=== PATIENT | female | born 1930 | race Hispanic/Latino ===

== ENCOUNTER 2016-11-27 11:51 | Emergency (ER) | payer MEDICARE, BC ==
[2016-11-27 11:55] VITALS: BMI 33.6
--- NOTE | 2016-11-27 12:22 | ED PDOC ---
Arrival/HPI - General Chief Complaint: Trauma Time Seen by Provider: 11/27/16 11:58 - History of Present Illness Narrative History of Present Illness (Text): 11/27/16 12:17 86yo female in the ER after a fall which happened this morning. Patient states she sitting up in bed, stood up, felt lightheaded and fell onto her L. side. States she did not have LOC and remembers the whole event. States she did not have chest pain, palpitations, n/v, VILLEGAS. States she has thoracic back pain, R. knee pain, L min-rib pain. States she no longer feels lightheaded. No other complaints. Past Medical History - Provider Review Nursing Documentation Reviewed: Yes - Infectious Disease Hx of Infectious Diseases: None - Tetanus Immunization Tetanus Immunization: Unknown - Cardiac Hx Hypertension: Yes Hx Pacemaker: Yes - Pulmonary Hx Chronic Obstructive Pulmonary Disease (COPD): Yes - Neurological HX Cerebrovascular Accident: Yes (left side weakness) - HEENT Hx Cataracts: Yes (bilateral sx) - Endocrine/Metabolic Hx Diabetes Mellitus Type 2: Yes - Hematological/Oncological Hx Cancer: Yes (left breast lumpectomy had radiation 2000) Other/Comment: l breast lumpectomy 2000 - Integumentary Other/Comment: redness under breasts, redness to left buttock - Musculoskeletal/Rheumatological Hx Falls: Yes Hx Unsteady Gait: Yes (uses a cane) - Gastrointestinal Hx Gastrointestinal Disorders: Yes (gi bleed) - Genitourinary/Gynecological Hx Incontinence: Yes (urine and stool) - Psychiatric Hx Depression: No Hx Emotional Abuse: No Hx Physical Abuse: No Hx Substance Use: No - Surgical History Hx Cardiac Catheterization: Yes Hx Open Heart Surgery: Yes Hx Orthopedic Surgery: Yes Other/Comment: ptca, 5 stents, cabg 3 stents, carpal tunnel sx - Anesthesia Hx Anesthesia Reactions: No Hx Malignant Hyperthermia: No - Suicidal Assessment Feels Threatened In Home Enviroment: No Family/Social History Family/Social History: Unknown Family HX Smoking Status: Never Smoked Hx Alcohol Use: No Hx Substance Use: No Hx Substance Use Treatment: No Allergies/Home Meds Allergies/Adverse Reactions: Allergies FISH Allergy (Verified 11/27/16 12:00) RASH Home Medications: Home Meds Medication Instructions Recorded Confirmed Apixaban [Eliquis] 5 mg PO DAILY 11/27/16 11/27/16 Aspirin [Adult Low Dose Aspirin EC] 81 mg PO DAILY 11/27/16 11/27/16 Cetirizine HCl [Children's Allergy 10 mg PO DAILY 11/27/16 11/27/16 Relief] Furosemide [Lasix] 40 mg PO DAILY 11/27/16 11/27/16 Losartan Potassium 100 mg PO DAILY 11/27/16 11/27/16 Metformin HCl [Metformin HCl ER] 500 mg PO DAILY 11/27/16 11/27/16 Potassium Chloride [K-Dur 20] 20 meq PO DAILY 11/27/16 11/27/16 Simvastatin 40 mg PO DAILY 11/27/16 11/27/16 amLODIPine [Norvasc] 5 mg PO DAILY 11/27/16 11/27/16 Physical Exam - Physical Exam Narrative Physical Exam (Text): 11/27/16 12:23 - Review of Systems Constitutional: Normal. absent: Fatigue, Weight Change, Fevers Eyes: Normal ENT: denies sore throat, denies tristhmus Respiratory: Normal. absent: SOB, Cough, Sputum Cardiovascular: absent: Chest Pain, Palpitations, Syncope Gastrointestinal: Normal. absent: Abdominal Pain, Diarrhea, Nausea, Vomiting Genitourinary: Normal. absent: Dysuria, Frequency, Hematuria, vaginal bleeding Musculoskeletal: Arthralgias, Back Pain. absent: Neck Pain Skin: no rashes, no erythema Neurological: absent: Focal Weakness Endocrine: Normal Hemo/Lymphatic: Normal Psychiatric: No suicidal or homicidal ideations Physical exam Patient appears age appropriate in no distress, speaking full sentences without difficulty Head atraumatic. No nasal bone deformity or tenderness, no facial or jaw pain/ swelling. No neck midline tenderness, and lumbar spine with no midline tenderness. Pt moving b/l upper and lower extremities without difficulty, 5/5 strength, with full active and passive ROM. Distal neurovasc fully intact. Abd soft/nt/ng, no hematomas, no peritoneal signs. Neg. pelvic rock. L. ribs with ant. and post tenderness to palpation L. mid-thoracic spine with tenderness to palpation R. knee with small contusion, full active and passive ROM - Systems Exam Head: Present: Atraumatic, Normocephalic Pupils: Present: PERRL Extroacular Muscles: Present: EOMI Conjunctiva: Present: Normal Mouth: Present: Moist Mucous Membranes Neck: Present: Normal Range of Motion. No: MIDLINE TENDERNESS, Paraspinal Tenderness Respiratory/Chest: Present: Clear to Auscultation, Good Air Exchange. No: Respiratory Distress, Accessory Muscle Use, Tachypneic Cardiovascular: Present: Regular Rate and Rhythm, Normal S1, S2, Peripheal Pulses Present. No: Murmurs Abdomen: Present: Normal Bowel Sounds. No: Tenderness, Distention, Peritoneal Signs, Rebound, Guarding Neurological: Present: GCS=15, Speech Normal, cranial nerves II through XII fully intact with no cerebellar abnormality, neurosensory fully intact. No focal neurological deficits. Skin: Present: Warm, Dry, Normal Color. No: Rashes Lymphatic: Present: OX3, NI, NC Psychiatric: Present: Alert, Oriented x 3, Normal Insight, Normal Concentration Vital Signs Reviewed: Yes Vital Signs Temp Pulse Resp BP Pulse Ox 11/27/16 15:11 98 F 72 19 150/86 99 11/27/16 12:00 98.2 F 71 16 170/89 H 96 Temperature: Afebrile Blood Pressure: Hypertensive Pulse: Regular Respiratory Rate: Normal Appearance: Positive for: Well-Appearing Pain Distress: None Mental Status: Positive for: Alert and Oriented X 3 Medical Decision Making ED Course and Treatment: 11/27/16 12:29 86yo female after a fall. states she was lightheaded after standing up, then fell, no LOC. L. ribs and mid-thoracic spine with tenderness to palpation No focal neurological deficits on examination Differential includes but not limited to: fracture, dehydration, UTI previous records reviewed, pt was admitted 11/18 for pseudomonas UTI labs, imaging, pain meds ordered EKG shows paced rhythm, 68bpm. Interpreted by me 11/27/16 13:40 Pelvis and Bilateral Hips X-ray: Creator : Yosi Kerns MD IMPRESSION: No acute fracture 11/27/16 13:45 Right Knee X-ray: Creator : Yosi Kerns MD IMPRESSION: Severe degenerative changes are seen especially in the patellofemoral joint. There is also joint space narrowing and bony sclerosis in the medial compartment. Meniscal calcification is also seen 11/27/16 13:[address]: Creator : Yosi Kerns MD IMPRESSION: No acute findings 11/27/16 13:[address]: Creator : Yosi Kerns MD IMPRESSION: No acute findings. 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 No acute compression fractures 11/27/16 15:03 pt in no pain or distress at this time states she ambulates with a walker at home ambulated with assistance in the ED states she feels comfortable being dc'd home Pt states she understands to return to the ER right away for new or worsening symptoms or for inability to f/u with PMD or specialist as instructed. Patient states that she fully agrees with and understands discharge instructions. States that she agrees with the plan and disposition. Verbalized and repeated discharge instructions and plan. I have given the patient opportunity to ask any additional questions. 11/27/16 16:28 spoke with Sabine, pt's next of kin. She states pt is now resting. Informed that UA was sent for culture and that our staff will call with positive results. also informed of L. lobe nodule and instructed to inform Dr. Hall during next f /u visit further w/u if needed. - Lab Interpretations Lab Results: 11/27/16 12:30 11/27/16 12:30 Lab Results 11/27/16 15:00: Urine Color Yellow, Urine Appearance Clear, Urine pH 7.0, Ur Specific [place] 1.020, Urine Protein 100 H, Urine Glucose (UA) 500 H, Urine Ketones Trace H, Urine Blood Small H, Urine Nitrate Negative, Urine Bilirubin Negative, Urine Urobilinogen 2.0 H, Ur Leukocyte Esterase Small H, Urine RBC 10 - 15, Urine WBC 20 - 25, Ur Epithelial Cells 6 - 8, Amorphous Sediment Small, Urine Bacteria Many, Coarse Granular Casts Trace H, Urine Other Uyeast 11/27/16 12:30: Sodium 136, Potassium 4.2, Chloride 102, Carbon Dioxide 26, Anion Gap 12, BUN 16, Creatinine 1.1, Est GFR ( Amer) 57, Est GFR (Non- Af Amer) 47, Random Glucose 288 H, Calcium 9.3, Total Bilirubin 1.0, AST 37, ALT 25, Alkaline Phosphatase 137 H, Lactate Dehydrogenase 493, Total Creatine Kinase 235 H, CK-MB (CK-2) 2.5, CK-MB (CK-2) % Cancelled, Troponin I 0.03 D, Total Protein 7.4, Albumin 3.6, Globulin 3.8, Albumin/Globulin Ratio 0.9 L 11/27/16 12:30: PT 11.4, INR 1.06, APTT 24.9 11/27/16 12:30: WBC 11.3 H D, RBC 5.04, Hgb 13.1, Hct 41.1, MCV 81.5, MCH 26.0, MCHC 31.9, RDW 16.6 H, Plt Count 222, MPV 9.8, Gran % 85.8 H, Lymph % (Auto) 7.5 L, [place] % (Auto) 6.5 H, Eos % (Auto) 0.1 L, Baso % (Auto) 0.1, Gran # 9.69 H , Lymph # 0.9 L, Preble # 0.7 H, Eos # 0.0, Baso # 0.01 I have reviewed the lab results: Yes - RAD Interpretation Radiology Orders: 11/27/16 12:13 CHEST W/O CONTRAST [CT] Stat HEAD W/O CONTRAST [CT] Stat THORACIC SPINE W/O CONT [CT] Stat HIP MIN 2V W/ PELVIS VIRIDIANA [RAD] Stat KNEE W PATELLA RIGHT 3 VIEW [RAD] Stat - Medication Orders Current Medication Orders: Discontinued Medications Acetaminophen (Tylenol 325mg Tab) 975 mg PO STAT STA Stop: 11/27/16 12:14 Last Admin: 11/27/16 12:20 Dose: 975 mg Acetaminophen (Tylenol 325mg Tab) Confirm Administered Dose 975 mg .ROUTE .STK- MED ONE Stop: 11/27/16 12:21 Last Admin: 11/27/16 12:22 Dose: Disposition/Present on Arrival - Present on Arrival Any Indicators Present on Arrival: No History of DVT/PE: No History of Uncontrolled Diabetes: No Urinary Catheter: No History of Decub. Ulcer: No History Surgical Site Infection Following: None - Disposition Have Diagnosis and Disposition been Completed?: Yes Diagnosis: Fall Disposition: HOME/ ROUTINE Disposition Time: 15:06 Patient Plan: Discharge Condition: GOOD Discharge Instructions (ExitCare): Fall Prevention for Older Adults (ED), Fall Prevention (ED) Additional Instructions: PLEASE RETURN TO THE EMERGENCY DEPARTMENT FOR NEW OR WORSENING SYMPTOMS. RETURN RIGHT AWAY IF YOU CANNOT FOLLOW UP WITH YOUR PRIMARY CARE DOCTOR, CLINIC, OR SPECIALIST IN 1-2 DAYS. Prescriptions: Acetaminophen [Tylenol Extra Strength] 500 mg PO Q6 PRN #15 tablet PRN Reason: Pain, Moderate (4-7) Referrals: Kishan Hall MD [Primary Care Provider] - Follow up with primary
[2016-11-27 12:50] LABS: ADD MANUAL DIFF? NO
[2016-11-27 12:54] LABS: BASO # 0.01 K/mm3 (0.0-2.0); BASO % 0.1 % (0.0-3.0); EOS % 0.1 % (1.5-5.0); GRAN # 9.69 (1.4-6.5); GRAN % 85.8 % (50.0-68.0); HEMATOCRIT 41.1 % (36.0-48.0); LYMPH # 0.9 (1.2-3.4); LYMPH % 7.5 % (22.0-35.0); MEAN CELL VOLUME 81.5 fL (80.0-105.0); MEAN CORPUSCULAR HGB CONC 31.9 g/dl (31.0-37.0); MEAN PLATELET VOLUME 9.8 fl (7.0-11.0); MONO # 0.7 (0.1-0.6); MONO % 6.5 % (1.0-6.0); PLATELET COUNT 222 10^3/uL (120.0-450.0); RED CELL DISTRIBUTION WIDTH 16.6 % (11.5-14.5); WHITE BLOOD COUNT 11.3 10^3/ul (4.5-11.0)
[2016-11-27 13:03] LABS: INR 1.06 (0.93-1.08); PARTIAL THROMBOPLASTIN TIME 24.9 Seconds (23.7-30.8)
[2016-11-27 13:05] LABS: ALB/GLOB RATIO 0.9 (1.1-1.8); CALCIUM 9.3 mg/dL (8.4-10.5); POTASSIUM 4.2 mmol/L (3.6-5.0); TOTAL PROTEIN 7.4 g/dL (5.8-8.3)
[2016-11-27 13:16] LABS: TROPONIN I 0.03 ng/mL
--- NOTE | 2016-11-27 13:40 | RAD ---
PROCEDURE: Radiographs of the pelvis and bilateral hips HISTORY: fall COMPARISON: None. FINDINGS: BONES: Pelvis: Unremarkable. Right hip:Unremarkable. Left hip:Unremarkable. JOINTS: Right hip: Unremarkable. Left hip: Unremarkable. Sacroiliac Joints: Unremarkable. Pubic symphysis: Degenerative changes with joint space narrowing and osteophyte formation. SOFT TISSUES: Normal. OTHER FINDINGS: None. IMPRESSION: No acute fracture
--- NOTE | 2016-11-27 13:41 | RAD ---
PROCEDURE: Right Knee Radiographs. HISTORY: fall COMPARISON: None. FINDINGS: BONES: Normal. No fracture. JOINTS: Severe degenerative changes are seen especially in the patellofemoral joint. There is also joint space narrowing and bony sclerosis in the medial compartment. Meniscal calcification is also seen JOINT EFFUSION: None. OTHER FINDINGS: None. IMPRESSION: Severe degenerative changes are seen especially in the patellofemoral joint. There is also joint space narrowing and bony sclerosis in the medial compartment. Meniscal calcification is also seen
--- NOTE | 2016-11-27 13:46 | CT ---
PROCEDURE: CT HEAD WITHOUT CONTRAST. HISTORY: fall COMPARISON: 01/12/2013 TECHNIQUE: Axial computed tomography images were obtained through the head/brain without intravenous contrast. Radiation dose: Total exam DLP = 725 mGy-cm. This CT exam was performed using one or more of the following dose reduction techniques: Automated exposure control, adjustment of the mA and/or kV according to patient size, and/or use of iterative reconstruction technique. FINDINGS: HEMORRHAGE: No intracranial hemorrhage. BRAIN: No mass effect or edema. There is mild to moderate atrophy. No acute findings VENTRICLES: Unremarkable. No hydrocephalus. CALVARIUM: Unremarkable. PARANASAL SINUSES: Unremarkable as visualized. No significant inflammatory changes. MASTOID AIR CELLS: Unremarkable as visualized. No inflammatory changes. OTHER FINDINGS: None. IMPRESSION: No acute findings
--- NOTE | 2016-11-27 13:56 | CT ---
PROCEDURE: CT Chest without contrast HISTORY: fall COMPARISON: None. TECHNIQUE: Contiguous axial images were obtained through the chest without intravenous contrast enhancement. Sagittal and coronal reconstructions were performed. Radiation dose (DLP): 788 mGy-cm. This CT exam was performed using one or more of the following dose reduction techniques: Automated exposure control, adjustment of the mA and/or kV according to patient size, and/or use of iterative reconstruction technique. FINDINGS: LUNGS: There is a 9 mm nodule in the superior segment of the left lower lobe seen on image 40 series 4. MEDIASTINUM: Unremarkable thoracic aorta. No aneurysm. Coronary artery calcifications are seen. Pacemaker leads are seen. There is mild cardiomegaly Main pulmonary artery unremarkable. No vascular congestion. No lymphadenopathy. PLEURA: No pleural fluid. No pneumothorax. BONES: No fracture. No destructive lesion. UPPER ABDOMEN: Grossly unremarkable. OTHER FINDINGS: None. IMPRESSION: No acute findings. 9 mm nodule superior segment left lower lobe
--- NOTE | 2016-11-27 13:59 | CT ---
PROCEDURE: CT Thoracic Spine without contrast HISTORY: fall COMPARISON: None. TECHNIQUE: Axial computed tomography images were obtained of the thoracic spine without intravenous contrast. Coronal and sagittal reformatted images were created and reviewed. Radiation dose: Total exam DLP = 1377 mGy-cm. This CT exam was performed using one or more of the following dose reduction techniques: Automated exposure control, adjustment of the mA and/or kV according to patient size, and/or use of iterative reconstruction technique. FINDINGS: VERTEBRAE: There are no vertebral compression fractures. There is scoliotic curvature of the thoracic spine convex to the right with a Cody angle of 26 degrees.. DISCS/SPINAL CANAL/NEURAL FORAMINA: Degeneration is seen. PARASPINAL SOFT TISSUES: Unremarkable. OTHER FINDINGS: Unremarkable. 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 No acute compression fractures
[2016-11-27 15:13] VITALS: BP 150/86; PULSE 72; RESP 19; TEMP 98; O2SAT 99
[2016-11-27 15:37] LABS: URINE BILIRUBIN NEGATIVE (NEGATIVE); URINE BLOOD SMALL (NEGATIVE); URINE GLUCOSE (UA) 500 mg/dL (NEGATIVE); URINE KETONE TRACE mg/dL (NEGATIVE); URINE LEUKOCYTE ESTERASE SMALL Leu/uL (NEGATIVE); URINE PROTEIN 100 mg/dL (<30 mg/dL)
[2016-11-27 15:43] LABS: URINE COLOR YELLOW (YELLOW)
[2016-11-27 15:44] LABS: URINE APPEARANCE CLEAR (CLEAR)
[2016-11-27 15:59] LABS: URINE WBC 20 - 25 /hpf (0-6)
[2016-11-27 16:00] LABS: URINE BACTERIA MANY (NEG)
[2016-11-27 16:01] LABS: URINE AMORPHOUS SEDIMENT SMALL
--- NOTE | 2016-11-28 01:02 | CARD ---
APPROVED REPORT EKG Measurement Heart [id number] <Conclusion> Atrial sensed, ventricular paced rhythm
== END 2016-11-27 15:23 | disposition home or self-care (01) ==
LOC: ED 11:51
DX: Z03.89 Encounter for observation for other suspected diseases and conditions ruled out (principal); W19.XXXA Unspecified fall, initial encounter

== ENCOUNTER 2017-01-06 13:26 | Inpatient (IN) | payer MEDICARE, BC ==
[2017-01-06 13:27] VITALS: BMI 33.6
--- NOTE | 2017-01-06 13:56 | ED PDOC ---
Arrival/HPI - General Chief Complaint: Back Pain Time Seen by Provider: 01/06/17 13:42 Historian: Patient - History of Present Illness Narrative History of Present Illness (Text): 01/06/17 13:42 Nnamdi Kerr is an 86 year old female, whose past medical history includes hypertension and hyperlipidemia, who presents to the emergency department complaining of back pain, difficulty ambulating, and leg swell for a few hours. As per family beside, Patient did not answer phone and family found patient lying in bed. Patient states that she had difficulty ambulating due to sever back pain. Family reports that patient has mild dementia. Patient cannot provide further history. Patient denies any trauma, fever, nausea, vomiting, urinary complaints, or any other complaints at this time. Patient's family reports that patient is compliant with Eliquis. PMD: Dr. Hall Time/Duration: 4-6 hours Symptom Onset: Gradual Symptom Course: Unchanged Severity Level: Mild Activities at Onset: Rest Context: Home Past Medical History - Provider Review Nursing Documentation Reviewed: Yes - Infectious Disease Hx of Infectious Diseases: None - Tetanus Immunization Tetanus Immunization: Unknown - Reproductive Menopause: Yes - Cardiac Hx Hypertension: Yes Hx Pacemaker: Yes - Pulmonary Hx Chronic Obstructive Pulmonary Disease (COPD): Yes - Neurological HX Cerebrovascular Accident: Yes (left side weakness) - HEENT Hx Cataracts: Yes (bilateral sx) - Endocrine/Metabolic Hx Diabetes Mellitus Type 2: Yes - Hematological/Oncological Hx Cancer: Yes (left breast lumpectomy had radiation 2000) Other/Comment: l breast lumpectomy 2000 - Integumentary Other/Comment: redness under breasts, redness to left buttock - Musculoskeletal/Rheumatological Hx Falls: Yes Hx Unsteady Gait: Yes (uses a cane) - Gastrointestinal Hx Gastrointestinal Disorders: Yes (gi bleed) - Genitourinary/Gynecological Hx Incontinence: Yes (urine and stool) - Psychiatric Hx Depression: No Hx Emotional Abuse: No Hx Physical Abuse: No Hx Substance Use: No - Surgical History Hx Cardiac Catheterization: Yes Hx Open Heart Surgery: Yes Hx Orthopedic Surgery: Yes Other/Comment: ptca, 5 stents, cabg 3 stents, carpal tunnel sx - Anesthesia Hx Anesthesia: No Hx Anesthesia Reactions: No Hx Malignant Hyperthermia: No - Suicidal Assessment Feels Threatened In Home Enviroment: No Family/Social History - Physician Review Nursing Documentation Reviewed: Yes Family/Social History: No Known Family HX Smoking Status: Never Smoked Hx Alcohol Use: No Hx Substance Use: No Hx Substance Use Treatment: No Allergies/Home Meds Allergies/Adverse Reactions: Allergies ciprofloxacin Allergy (Verified 01/06/17 17:19) RASH FISH Allergy (Verified 11/27/16 12:00) RASH Home Medications: Home Meds Medication Instructions Recorded Confirmed Aspirin [Adult Low Dose Aspirin EC] 81 mg PO DAILY 11/27/16 01/06/17 Losartan Potassium 100 mg PO DAILY 11/27/16 01/06/17 Metformin HCl [Metformin HCl ER] 500 mg PO DAILY 11/27/16 01/06/17 Potassium Chloride [K-Dur 20] 20 meq PO DAILY 11/27/16 01/06/17 Simvastatin 40 mg PO DAILY 11/27/16 01/06/17 amLODIPine [Norvasc] 5 mg PO DAILY 11/27/16 01/06/17 Apixaban [Eliquis] 5 mg PO BID 01/06/17 01/06/17 Furosemide [Lasix] 40 mg PO DAILY 01/06/17 01/06/17 Review of Systems - Physician Review All systems were reviewed & negative as marked: Yes - Review of Systems Constitutional: absent: Fevers, Night Sweats Eyes: absent: Vision Changes ENT: absent: Hearing Changes Respiratory: absent: SOB, Cough Gastrointestinal: absent: Abdominal Pain Genitourinary Female: absent: Dysuria Musculoskeletal: Back Pain, Other (Leg swelling) Skin: absent: Rash Neurological: Other (Difficulty ambulating) Endocrine: absent: Diaphoresis Hemo/Lymphatic: absent: Adenopathy Psychiatric: absent: Depression Physical Exam Vital Signs Reviewed: Yes Vital Signs Temp Pulse Resp BP Pulse Ox 01/06/17 16:55 66 16 131/60 98 01/06/17 16:28 142/88 01/06/17 15:28 74 18 136/80 100 01/06/17 13:52 98.6 F 72 16 142/76 100 Temperature: Afebrile Blood Pressure: Normal Pulse: Regular Respiratory Rate: Normal Appearance: Positive for: Other (Morbid obesity) Pain Distress: None - Systems Exam Head: Present: Atraumatic, Normocephalic Pupils: Present: PERRL Extroacular Muscles: Present: EOMI Conjunctiva: Present: Normal Mouth: Present: Moist Mucous Membranes Neck: Present: Normal Range of Motion Respiratory/Chest: Present: Clear to Auscultation, Good Air Exchange. No: Respiratory Distress, Accessory Muscle Use Cardiovascular: Present: Regular Rate and Rhythm, Normal S1, S2. No: Murmurs Abdomen: Present: Tenderness (Mild nonfocal abdominal tenderness) Back: Present: Other (Diffuse flank tenderness) Upper Extremity: Present: Normal Inspection. No: Cyanosis, Edema Lower Extremity: Present: Normal Inspection. No: Edema Neurological: Present: GCS=15, CN II-XII Intact, Speech Normal Skin: Present: Warm, Dry, Normal Color. No: Rashes Psychiatric: Present: Alert, Oriented x 3, Normal Insight, Normal Concentration Medical Decision Making ED Course and Treatment: 01/06/17 Impression: 86 year old female complaining of back pain, difficulty ambulating, and leg swelling for a few hours. Differential Diagnosis included but are not limited to: Plan: -- Abdomen and Pelvis CT w/o PO contrast -- Lumbar Spine CT w/o contrast -- Urinalysis -- Labs -- Toradol -- Reassess and disposition Prior Visits: Notes and results from previous visits were reviewed. Patient last seen in the ED on 11/28/15 for a fall that day. Patient was discharged home. Progress Notes: EKG: Ordered, reviewed, and independently interpreted the EKG. Rate : 71 BPM Rhythm :Paced Rhythm rate Interpretation : No ST-segment elevations or depressions, no T-wave inversions, normal intervals. Comparison : No previous EKG for comparison. 01/06/17 14:55 Chest X-ray: Dictator : Yosi Kerns MD FINDINGS: LUNGS:No active pulmonary disease. PLEURA:No significant pleural effusion identified, no pneumothorax apparent. CARDIOVASCULAR:Mild cardiomegaly. Sternal wires. Dual lead pacemaker OSSEOUS STRUCTURES:No significant abnormalities. VISUALIZED UPPER ABDOMEN:Normal. OTHER FINDINGS:None. IMPRESSION: No active disease. 01/06/17 16:21 noted bnp. lasix dosed. noted urine, h/o of psuedomonas, senstive to cipro. case discussed with dr diana accepts. pt. pt will need pt eval for gait dysfunction. pt lives by herself. unsafe d/c 01/06/17 17:53 pt developed rash to right arm, puritic, s/p cipro. benadryl dosed, antibiotics changed to ceftriaxone. - Lab Interpretations Lab Results: 01/06/17 14:30 01/06/17 16:05 Lab Results 01/06/17 16:05: Sodium 137, Potassium 4.3, Chloride 97 L, Carbon Dioxide 30, Anion Gap 14, BUN 16, Creatinine 1.1, Est GFR ( Amer) 57, Est GFR (Non- Af Amer) 47, Random Glucose 274 H, Calcium 9.6, Magnesium 2.2, Total Bilirubin 0.8, AST 67 H, ALT 29, Alkaline Phosphatase 159 H, Lactate Dehydrogenase 501, Total Creatine Kinase 1079 H, CK-MB (CK-2) 5.2 H, CK-MB (CK-2) % 0.5 L, Troponin I 0.04 D, NT-Pro-B Natriuret Pep 1200 H, Total Protein 8.0, Albumin 3.6, Globulin 4.4, Albumin/Globulin Ratio 0.8 L, Lipase 66 01/06/17 14:30: Urine Color Yellow, Urine Appearance Clear, Urine pH 7.0, Ur Specific [place] 1.015, Urine Protein 30 H, Urine Glucose (UA) 500 H, Urine Ketones Trace H, Urine Blood Small H, Urine Nitrate Negative, Urine Bilirubin Negative, Urine Urobilinogen 0.2, Ur Leukocyte Esterase Trace H, Urine RBC 2 - 5 , Urine WBC 5 - 10, Ur Epithelial Cells 1 - 3, Urine Bacteria Few 01/06/17 14:30: PT 11.1, INR 1.03, APTT 26.1 01/06/17 14:30: WBC 8.6 D, RBC 5.20, Hgb 13.5, Hct 42.3, MCV 81.3, MCH 26.0, MCHC 31.9, RDW 17.0 H, Plt Count 255, MPV 10.0, Gran % 81.6 H, Lymph % (Auto) 11.9 L, [place] % (Auto) 6.3 H, Eos % (Auto) 0.1 L, Baso % (Auto) 0.1, Gran # 6.97 H, Lymph # 1.0 L, [place] # 0.5, Eos # 0.0, Baso # 0.01 - RAD Interpretation Radiology Orders: 01/06/17 14:04 CHEST PORTABLE [RAD] Stat 01/06/17 14:05 ABD & PELVIS W/O PO OR IV CONT [CT] Stat LUMBAR SPINE W/O CONTRAST [CT] Stat - Medication Orders Current Medication Orders: Discontinued Medications Diphenhydramine HCl (Benadryl) 50 mg IVP STAT STA Stop: 01/06/17 16:54 Last Admin: 01/06/17 16:59 Dose: 50 mg Furosemide (Lasix) 40 mg IVP STAT STA Stop: 01/06/17 16:21 Last Admin: 01/06/17 16:28 Dose: 40 mg Ciprofloxacin (Cipro 400mg/200ml Dsw) 400 mg in 200 mls @ 133.3 mls/hr IVPB STAT STA PRN Reason: Protocol Stop: 01/06/17 17:40 Last Admin: 01/06/17 16:33 Dose: 133.3 mls/hr Ceftriaxone Sodium (Rocephin 1 Gram Ivpb) 1 gm in 100 mls @ 200 mls/hr IVPB STAT STA PRN Reason: Protocol Stop: 01/06/17 17:23 Last Admin: 01/06/17 17:31 Dose: 200 mls/hr Ketorolac Tromethamine (Toradol) 30 mg IVP STAT STA Stop: 01/06/17 14:07 Last Admin: 01/06/17 14:38 Dose: 30 mg - Scribe Statement The provider has reviewed the documentation as recorded by the Katie Allison Provider Scribe Attestation: All medical record entries made by the Scribe were at my direction and personally dictated by me. I have reviewed the chart and agree that the record accurately reflects my personal performance of the history, physical exam, medical decision making, and the department course for this patient. I have also personally directed, reviewed, and agree with the discharge instructions and disposition. Disposition/Present on Arrival - Present on Arrival Any Indicators Present on Arrival: No History of DVT/PE: No History of Uncontrolled Diabetes: No Urinary Catheter: No History of Decub. Ulcer: No History Surgical Site Infection Following: None - Disposition Have Diagnosis and Disposition been Completed?: Yes Diagnosis: UTI (urinary tract infection), CHF (congestive heart failure), Back pain Disposition: HOSPITALIZED Disposition Time: 16:22 Patient Problems: Current Active Problems Problem Status Onset UTI (urinary tract infection) Acute CHF (congestive heart failure) Acute Back pain Acute Condition: STABLE
--- NOTE | 2017-01-06 14:29 | RAD ---
HISTORY: abd pain COMPARISON: 11/24/2015 FINDINGS: LUNGS: No active pulmonary disease. PLEURA: No significant pleural effusion identified, no pneumothorax apparent. CARDIOVASCULAR: Mild cardiomegaly. Sternal wires. Dual lead pacemaker OSSEOUS STRUCTURES: No significant abnormalities. VISUALIZED UPPER ABDOMEN: Normal. OTHER FINDINGS: None. IMPRESSION: No active disease.
[2017-01-06 15:01] LABS: BASO # 0.01 K/mm3 (0.0-2.0); BASO % 0.1 % (0.0-3.0); EOS % 0.1 % (1.5-5.0); GRAN # 6.97 (1.4-6.5); GRAN % 81.6 % (50.0-68.0); HEMOGLOBIN 13.5 gm/dL (12.0-16.0); LYMPH % 11.9 % (22.0-35.0); MEAN CELL VOLUME 81.3 fL (80.0-105.0); MEAN CORPUSCULAR HGB CONC 31.9 g/dl (31.0-37.0); MONO # 0.5 (0.1-0.6); MONO % 6.3 % (1.0-6.0); PLATELET COUNT 255 10^3/uL (120.0-450.0); WHITE BLOOD COUNT 8.6 10^3/ul (4.5-11.0)
[2017-01-06 15:08] LABS: INR 1.03 (0.93-1.08); PARTIAL THROMBOPLASTIN TIME 26.1 Seconds (23.7-30.8); PROTHROMBIN TIME 11.1 Seconds (9.9-11.8)
[2017-01-06 15:19] LABS: URINE BILIRUBIN NEGATIVE (NEGATIVE); URINE BLOOD SMALL (NEGATIVE); URINE GLUCOSE (UA) 500 mg/dL (NEGATIVE); URINE LEUKOCYTE ESTERASE TRACE Leu/uL (NEGATIVE); URINE NITRATE NEGATIVE (NEGATIVE); URINE PROTEIN 30 mg/dL (<30 mg/dL); URINE UROBILINOGEN 0.2 E.U./dL (<1 E.U./dL)
[2017-01-06 15:23] LABS: URINE COLOR YELLOW (YELLOW)
[2017-01-06 15:24] LABS: URINE APPEARANCE CLEAR (CLEAR)
--- NOTE | 2017-01-06 15:35 | CT ---
PROCEDURE: CT Abdomen and Pelvis without intravenous contrast HISTORY: back pain/flank pain COMPARISON: 10/16/2014 TECHNIQUE: CT scan of the abdomen and pelvis was performed without administration of intravenous contrast. Oral contrast was not administered. Coronal and sagittal reformatted images were obtained. Radiation dose: Total exam DLP = 991.05 mGy-cm. This CT exam was performed using one or more of the following dose reduction techniques: Automated exposure control, adjustment of the mA and/or kV according to patient size, and/or use of iterative reconstruction technique. FINDINGS: LOWER THORAX: There is bibasilar subsegmental atelectasis. LIVER: The liver is normal in size and there is diffuse fatty infiltration. No gross lesion or ductal dilatation. GALLBLADDER AND BILE DUCTS: The gallbladder is well distended and there are gallstones. No wall thickening or pericholecystic fluid. PANCREAS: There is diffuse atrophy of the pancreas. No gross lesion or ductal dilatation. SPLEEN: The spleen is normal in size. ADRENALS: Both adrenal glands are normal in size without discrete nodule. KIDNEYS AND URETERS: Both kidneys are normal in size. There is a 8 mm nonobstructing stone in the lower pole of the left kidney. No hydronephrosis. No solid mass. There is a 12 mm simple cyst in the right interpolar region. VASCULATURE: There are advanced atherosclerotic aortoiliac calcifications. No aortic aneurysm. BOWEL: The small bowel loops are normal in caliber. There is large amount of stool in the colon with fecal stasis in the rectum. There is colonic diverticulosis without CT evidence for acute diverticulitis. APPENDIX: Normal appendix. PERITONEUM: No free fluid. No free air. LYMPH NODES: No enlarged lymph nodes. BLADDER: Grossly normal in appearance. REPRODUCTIVE: The uterus is normal in size. There are calcified fibroids, the largest in the anterior fundus measures 12 mm. . BONES: No acute fracture. There is severe diffuse bone demineralization and multilevel degenerative disc disease. OTHER FINDINGS: None. IMPRESSION: 1. 8 mm nonobstructing stone in the lower pole of the left kidney. 2. Extensive colonic diverticulosis without CT evidence for acute diverticulitis. Constipation. No evidence of bowel obstruction. 3. Fibroid uterus with a 12 mm calcified fibroid in the anterior fundus.
--- NOTE | 2017-01-06 15:45 | CT ---
PROCEDURE: CT Lumbar Spine without contrast HISTORY: Back pain COMPARISON: None. TECHNIQUE: Axial computed tomography images were obtained of the lumbar spine without the use of intravenous contrast. Coronal and sagittal reformatted images were created and reviewed. Radiation dose: Total exam DLP = 1057.91 mGy-cm. This CT exam was performed using one or more of the following dose reduction techniques: Automated exposure control, adjustment of the mA and/or kV according to patient size, and/or use of iterative reconstruction technique. FINDINGS: VERTEBRAE: There is severe diffuse bone demineralization. There is normal alignment of the lumbar vertebral bodies. Lumbar lordosis is maintained. Vertebral bodies are normal in height. There is no acute fracture or bone destruction. DISCS/SPINAL CANAL/NEURAL FORAMINA: Evaluation of the discs, spinal canal, conus medullaris and nerve roots of cauda equina is limited on noncontrast CT examination. T12-L1: Calcified disc osteophyte complex indents the ventral thecal sac and results in mild spinal canal stenosis. No neural foraminal stenosis. L1-2: No large disc herniation, neural foraminal or spinal canal stenosis. L2-3: No large disc herniation, neural foraminal or spinal canal stenosis. L3-4: Diffuse posterior disc bulge in conjunction with moderate ligamentum flavum infolding results in mild spinal canal stenosis. Moderate bilateral facet arthropathy contributes to moderate right and severe left neural foraminal stenosis. L4-5: Posterior disc bulge without central spinal canal stenosis. Moderate bilateral facet arthropathy contributes to mild neural foraminal stenosis. L5-S1: Posterior disc bulge without central spinal canal stenosis. Moderate bilateral facet arthropathy without neural foraminal stenosis PARASPINAL SOFT TISSUES: The paraspinous soft tissues are normal. OTHER FINDINGS: None. IMPRESSION: 1. Severe diffuse bone demineralization. No acute fracture. Please note occult fractures cannot be excluded on plain radiographs. If there is a persistent clinical concern, an MRI may be performed for further evaluation. 2. Mild multilevel degenerative disc disease, worse at L3-4 with a diffuse posterior disc bulge, mild spinal canal stenosis, moderate right and severe left neural foraminal stenosis.
[2017-01-06 15:53] LABS: ALB/GLOB RATIO 0.8 (1.1-1.8); ALBUMIN 3.6 g/dL (3.0-4.8); CALCIUM 9.6 mg/dL (8.4-10.5); MAGNESIUM 2.2 mg/dL (1.7-2.2)
[2017-01-06 15:55] LABS: URINE BACTERIA FEW (NEG)
[2017-01-06 16:05] LABS: TROPONIN I 0.04 ng/mL
[2017-01-06] MEDS ORDERED: Ciprofloxacin 400mg/200ml D5W 400 MG/200 ML BAG IVPB STA (16:10)
[2017-01-06 16:11] LABS: CK MB% 0.5 % (2.5-3.0); CK-MB 5.2 ng/mL (0.0-3.6)
[2017-01-06] MEDS ORDERED: DiphenhydrAMINE 50 mg/ml Inj IVP STA (16:53)
[2017-01-06] MEDS ORDERED: cefTRIAXone 1 gm 1 GM/100 ML BAG IVPB STA (16:54)
[2017-01-06] MEDS ORDERED: Pneumococcal 23-Valent Vaccine IM ONE (21:57)
[2017-01-06] MEDS: Insulin Reg-LOW-Coverage SC SCH (22:14)
[2017-01-07 06:38] LABS: HEMOGLOBIN 12.1 gm/dL (12.0-16.0); MEAN CELL VOLUME 81.5 fL (80.0-105.0); MEAN CORPUSCULAR HEMOGLOBIN 25.7 pg (25.0-35.0); MEAN CORPUSCULAR HGB CONC 31.6 g/dl (31.0-37.0); MEAN PLATELET VOLUME 9.3 fl (7.0-11.0); RBC 4.7 10^6/uL (3.5-6.1); WHITE BLOOD COUNT 5.9 10^3/ul (4.5-11.0)
[2017-01-07 06:49] LABS: ALB/GLOB RATIO 0.7 (1.1-1.8); ALBUMIN 2.8 g/dL (3.0-4.8); CALCIUM 8.8 mg/dL (8.4-10.5)
[2017-01-07 07:00] LABS: TROPONIN I 0.04 ng/mL
[2017-01-07] MEDS: Insulin Reg-LOW-Coverage SC SCH ×4 (08:07→21:42)
[2017-01-07] MEDS: Potassium Chloride 20 mEq ER Tab PO SCH (09:34)
[2017-01-07] MEDS: METFORMIN HCL 500 MG PO SCH (09:36)
[2017-01-07] MEDS ORDERED: Non Formulary Medication (Simvastatin [Simvastatin] 40 MG) PO SCH (10:00)
--- NOTE | 2017-01-07 10:35 | CARD ---
APPROVED REPORT EKG Measurement Heart [id number] MA 170P-4 [id number] <Conclusion> Electronic ventricular pacemaker: 100 % V. Paced. Electrical artifact present
--- NOTE | 2017-01-07 11:51 | CP.PCM.PN ---
Subjective - Date & Time of Evaluation Date of Evaluation: 01/07/17 Time of Evaluation: 11:39 - Subjective Subjective: called by nurse pt ,s family is by bed side stating that the pt is agitated has hx of dementia , but she is never like this before.pt is admitted for back pain and ct of abdomen shows large amount of fecal material in the rectum.pt is sitting in chair and is refusing to be examined .and is becoming agreesive if tried to touch. Objective - Vital Signs/Intake and Output Vital Signs (last 24 hours): Temp Pulse Resp BP Pulse Ox 98.0 F 60 18 158/79 H 98 01/07/17 06:00 01/07/17 09:35 01/07/17 09:00 01/07/17 09:35 01/07/17 09:00 Intake and Output: 01/07/17 01/07/17 06:59 18:59 Intake Total 180 Output Total 1 Balance 179 - Medications Medications: Current Medications Amlodipine Besylate (Norvasc) 5 mg PO DAILY [facility] Last Admin: 01/07/17 09:35 Dose: 5 mg Apixaban (Eliquis) 5 mg PO BID [facility] PRN Reason: Protocol Last Admin: 01/07/17 09:34 Dose: 5 mg Aspirin (Aspirin Chewable) 81 mg PO DAILY [facility] Last Admin: 01/07/17 09:34 Dose: 81 mg Atorvastatin Calcium (Lipitor) 20 mg PO DIN [facility]IK Furosemide (Lasix) 40 mg PO DAILY [facility] Last Admin: 01/07/17 09:35 Dose: 40 mg Insulin Human Regular (Humulin R Low) 0 units SC ACHS [facility] PRN Reason: Protocol Last Admin: 01/07/17 11:23 Dose: Not Given Losartan Potassium (Cozaar) 100 mg PO DAILY [facility] Last Admin: 01/07/17 09:34 Dose: 100 mg Non-Formulary Medication (Metformin Hcl [Metformin Hcl Er]) 500 mg PO DAILY [facility] Last Admin: 01/07/17 09:36 Dose: Not Given Potassium Chloride (K-Dur 20 Meq Er Tab) 20 meq PO BRK [facility] Last Admin: 01/07/17 09:34 Dose: 20 meq - Labs Labs: 01/07/17 06:15 01/07/17 06:15 PT 11.1 Seconds (9.9-11.8) 01/06/17 14:30 INR 1.03 (0.93-1.08) 01/06/17 14:30 APTT 26.1 Seconds (23.7-30.8) 01/06/17 14:30 - Constitutional Appears: No Acute Distress - Head Exam Head Exam: NORMOCEPHALIC - Eye Exam Eye Exam: PERRL - Neck Exam Neck Exam: Normal Inspection - Respiratory Exam Respiratory Exam: NORMAL BREATHING PATTERN - Cardiovascular Exam Cardiovascular Exam: +S1, +S2 - GI/Abdominal Exam Additional comments: pt refused to be examined. - Extremities Exam Extremities Exam: Normal Inspection - Psychiatric Exam Additional comments: aggresive behavior. - Skin Skin Exam: Normal Color Assessment and Plan - Assessment and Plan (Free Text) Assessment: aggitation/agressive behaviour/constipation. Plan: fleets enema. pt is refusing .
--- NOTE | 2017-01-07 12:58 | CON ---
DATE: 01/07/2017 INDICATIONS: Back pain, inability to walk, AMS, coronary artery disease, bypass surgery, permanent pacemaker. HISTORY OF PRESENT ILLNESS: This is an 86-year-old woman, well known to me, admitted yesterday to the emergency room when she was unable to get out of bed and ambulate. She had back pain and was unable to move her legs. She was found by her family and brought to the emergency room. She has been admitted to Telemetry. Today, she feels better, although she is still lying in bed and has not tried to get out of bed yet. There was no pain in her back and no leg pain at this moment. There was no chest pain, shortness of breath, orthopnea, PND, syncope, presyncope, lightheadedness, dizziness, vertigo, palpitations, fever, chills, cough, sputum production, hemoptysis, abdominal pain, nausea, vomiting, diarrhea, constipation, or melena. PAST MEDICAL HISTORY: Notable for coronary artery disease with remote coronary bypass surgery, she has a permanent pacemaker, paroxysmal atrial fibrillation, hypertension, hyperlipidemia, diabetes. There is a history of gallstones, renal stones, a remote stroke, mild dementia and remote breast cancer with lumpectomy and radiation therapy. There is no history of rheumatic fever or gout. MEDICATIONS: At the time of admission include; aspirin, Eliquis, Lasix, potassium chloride, losartan, metformin, amlodipine, simvastatin. ALLERGIES: SHE NOTES ALLERGIES TO CIPRO. SOCIAL HISTORY: She lives at home. She does not smoke cigarettes. She does not drink alcohol. Her ambulation is limited. FAMILY HISTORY: Noncontributory. REVIEW OF SYSTEMS: A 10-point review of systems is otherwise unremarkable except as noted above. PHYSICAL EXAMINATION: GENERAL: She is a well-developed elderly woman, lying in bed on telemetry, in no acute distress. VITAL SIGNS: Notable for an AV paced rhythm at about 60 beats per minute. She is afebrile. Blood pressure is 122/51, respirations are 18 to 21, O2 sats 95% to 98% on room air. HEENT: Reveals no neck vein distention, thyromegaly, or carotid bruits. Mucous membranes are moist. Conjunctivae pink. Neck is supple. LUNGS: Lung carrera clear throughout. HEART: Reveals normal first and second heart sounds. There is a systolic murmur along the left sternal border. The PMI is not displaced. ABDOMEN: Soft. Bowel sounds are present. No mass, organomegaly, tenderness, rebound, or guarding, CVA tenderness, or palpable abdominal aortic aneurysm. EXTREMITIES: Revealed no cyanosis, clubbing, or edema. NEUROLOGIC: She is awake, alert, and oriented, although she did not know that she was in [facility] immediately. PSYCHIATRIC: Normal as to mood and affect. SKIN: Warm and dry. No rash or cellulitis. LABORATORY AND IMAGING: A potable chest x-ray revealed no active disease. EKG reveals AV pacing. An abdominal and pelvis CT scan reveals non-obstructing renal stone in the left kidney, extensive colonic diverticulosis, fibroid uterus. A lumbar spine CT reveals severe diseased bone demineralization, no acute fracture, mild multilevel degenerative disc disease, worse at L3-L4 with a diffuse posterior disc bulge and mild spinal canal stenosis with mild right and severe left neuroforaminal stenosis. IMPRESSION: The patient is an 86-year-old woman with coronary artery disease, coronary bypass surgery, permanent pacemaker, paroxysmal atrial fibrillation, admitted with back pain and inability to get out of bed. Her symptoms seemed to have improved. The cause for this is unclear, possibly related to a discogenic disease and spinal stenosis. There is mild dementia. At this time, I would continue her usual cardiac medications including aspirin, losartan, Eliquis, Lasix, potassium, Lipitor as a substitute for simvastatin, amlodipine. I have reviewed her laboratory data. Her CBC is unremarkable. PT, PTT and INR are unremarkable. Electrolytes, BUN, creatinine unremarkable. Her blood sugars are elevated. There is a mild elevation of her liver function tests. The troponin is 0.04, the BNP is 1200, lipase is normal. She can be out of bed as tolerated. She will have physical therapy evaluation and a neuro. consultation. I will follow along with you, make additional recommendationsbased on the clinical course . Overall, a conservative course of cardiac care is anticipated. Dada Chaves MD JASPREET
--- NOTE | 2017-01-07 13:02 | CP.PCM.CON ---
History of Present Illness - History of Present Illness History of Present Illness: 85 year old female with PMH of atrial fibrillation, dyslipidemia, coronary artery disease S/P CABG, S/P pacemaker placement, HTN, COPD, cerebrovascular accident with residual left-sided weakness, DM, history of breast cancer S/P lumpectomy on the left side, history of GI bleed, history of urinary incontinence, history of dementia was brought in to [facility] by family because of difficulty ambulating together with leg swelling yesterday. In the ED, she was noted to have trace leukocyte esterase on urinalysis. Infectious Diseases consult is requested to further evaluate and manage. Currently the patient according to the family is much more confused, at times angry at other people. There was no note of fever, no vomiting, no diarrhea. Patient has urinary incontinence. Review of Systems - Review of Systems Systems not reviewed;Unavailable: Dementia Past Patient History - Infectious Disease Hx of Infectious Diseases: None - Tetanus Immunizations Tetanus Immunization: Unknown - Past Social History Smoking Status: Former Smoker - CARDIAC Hx Cardiac Disorders: Yes (CABG) Hx Cardia Arrhythmia: Yes (AFIB) Hx Circulatory Problems: Yes Hx Congestive Heart Failure: Yes Hx Hypercholesterolemia: Yes Hx Hypertension: Yes Hx Pacemaker: Yes Hx Peripheral Edema: Yes - PULMONARY Hx Respiratory Disorders: Yes (H/O OF SMOKING CIGARETTES QUIT) Hx Chronic Obstructive Pulmonary Disease (COPD): Yes - NEUROLOGICAL Hx Neurological Disorder: Yes HX Cerebrovascular Accident: Yes (left side weakness) Hx Dementia: Yes (MILD) - HEENT Hx HEENT Problems: Yes Hx Cataracts: Yes (bilateral sx) - ENDOCRINE/METABOLIC Hx Endocrine Disorders: Yes Hx Diabetes Mellitus Type 2: Yes - HEMATOLOGICAL/ONCOLOGICAL Hx Blood Disorders: Yes Hx Cancer: Yes (left breast lumpectomy had radiation 2000) Other/Comment: l breast lumpectomy 2000 - INTEGUMENTARY Hx Dermatological Problems: Yes Other/Comment: redness under breasts, redness to left buttock - MUSCULOSKELETAL/RHEUMATOLOGICAL Hx Musculoskeletal Disorders: Yes (CARPAL TUNNEL SX) Hx Falls: Yes Hx Unsteady Gait: Yes (uses a cane) - GASTROINTESTINAL Hx Gastrointestinal Disorders: Yes (gi bleed) - GENITOURINARY/GYNECOLOGICAL Hx Genitourinary Disorders: Yes (C SECTION X 1) Hx Incontinence: Yes (urine and stool) Hx Urinary Tract Infection: Yes - PSYCHIATRIC Hx Psychophysiologic Disorder: No Hx Depression: No Hx Emotional Abuse: No Hx Physical Abuse: No Hx Substance Use: No - SURGICAL HISTORY Hx Surgeries: Yes (C SECTION X 2) Hx Cardiac Catheterization: Yes Hx Coronary Stent: Yes (5) Hx Open Heart Surgery: Yes Hx Orthopedic Surgery: Yes Other/Comment: ptca, 5 stents, cabg 3 stents, carpal tunnel sx - ANESTHESIA Hx Anesthesia: No Hx Anesthesia Reactions: No Hx Malignant Hyperthermia: No Meds Allergies/Adverse Reactions: Allergies Allergy/AdvReac Type Severity Reaction Status Date / Time ciprofloxacin Allergy RASH Verified 01/06/17 18:42 FISH Allergy RASH Verified 01/06/17 18:42 - Medications Medications: Current Medications Amlodipine Besylate (Norvasc) 5 mg PO DAILY [facility] Apixaban (Eliquis) 5 mg PO BID [facility] PRN Reason: Protocol Last Admin: 01/06/17 18:46 Dose: 5 mg Atorvastatin Calcium (Lipitor) 20 mg PO DIN [facility] Furosemide (Lasix) 40 mg PO DAILY [facility] Insulin Human Regular (Humulin R Low) 0 units SC ACHS [facility] PRN Reason: Protocol Last Admin: 01/06/17 22:14 Dose: 3 units Losartan Potassium (Cozaar) 100 mg PO DAILY [facility] Non-Formulary Medication (Metformin Hcl [Metformin Hcl Er]) 500 mg PO DAILY [facility] Physical Exam - Constitutional Appears: Non-toxic, No Acute Distress - Head Exam Head Exam: NORMAL INSPECTION - ENT Exam ENT Exam: Mucous Membranes Moist - Neck Exam Neck exam: Negative for: Lymphadenopathy, Meningismus - Respiratory Exam Respiratory Exam: Decreased Breath Sounds - Cardiovascular Exam Cardiovascular Exam: +S1, +S2 - GI/Abdominal Exam GI & Abdominal Exam: Soft. absent: Tenderness Results - Vital Signs Recent Vital Signs: Last Vital Signs Temp 98 F 01/06/17 21:31 Pulse 67 01/06/17 22:00 Resp 16 01/06/17 21:31 BP 131/60 01/06/17 21:31 Pulse Ox 98 01/06/17 18:41 - Labs Result Diagrams: 01/07/17 06:15 01/07/17 06:15 Labs: Laboratory Results - last 24 hr 01/06/17 21:14 POC Glucose (mg/dL) 350 H Assessment & Plan - Assessment and Plan (Free Text) Plan: Assessment R/O urinary tract infection in this patient with urinary incontinence Confusion, etiology to be determined history of urinary tract infection with Pseudomonas atrial fibrillation dyslipidemia coronary artery disease S/P CABG S/P pacemaker placement HTN COPD cerebrovascular accident with residual left-sided weakness DM history of breast cancer S/P lumpectomy on the left side history of GI bleed history of urinary incontinence Plan patient has been given Ceftriaxone; follow up urine cx, blood cx results will order CT head because of the confusion and would suggest Neurology evaluation for the confusion will monitor clinically
--- NOTE | 2017-01-07 13:57 | CT ---
PROCEDURE: CT HEAD WITHOUT CONTRAST. HISTORY: CONFUSION COMPARISON: 11/27/2016 TECHNIQUE: Axial computed tomography images were obtained through the head/brain without intravenous contrast. Radiation dose: Total exam DLP = 677 mGy-cm. This CT exam was performed using one or more of the following dose reduction techniques: Automated exposure control, adjustment of the mA and/or kV according to patient size, and/or use of iterative reconstruction technique. FINDINGS: HEMORRHAGE: No intracranial hemorrhage. BRAIN: No mass effect or edema. Chronic microvascular changes are seen in the periventricular white matter. There is mild atrophy VENTRICLES: Unremarkable. No hydrocephalus. CALVARIUM: Unremarkable. PARANASAL SINUSES: Unremarkable as visualized. No significant inflammatory changes. MASTOID AIR CELLS: Unremarkable as visualized. No inflammatory changes. OTHER FINDINGS: None. IMPRESSION: No acute findings
--- NOTE | 2017-01-07 16:12 | CON ---
DATE: 01/07/2017 CHIEF COMPLAINT: Altered mental status. HISTORY OF PRESENT ILLNESS: An 86-year-old woman with past medical history of atrial fibrillation, dyslipidemia, coronary artery disease, status post CABG, status post pacemaker placement, hypertension, COPD, cerebrovascular accident with residual left-sided weakness, type 2 diabetes mellitus, history of breast cancer, status post lumpectomy on the left side; history of GI bleeding, history of urinary incontinence; history of dementia; who brought into [facility] because of difficulty ambulating with leg swelling. Apparently, she was noted to have trace leukocyte esterase on urinalysis, ID is on board to evaluate for urinary tract infection. According to the family, the patient was more confused and angry at times. She gets agitated. CAT scan of the head showed no intracranial abnormality, is mildly dehydrated. PAST MEDICAL HISTORY: Atrial fibrillation, dyslipidemia, coronary artery disease, status post CABG, status post pacemaker placement, hypertension, COPD, cerebrovascular accident with residual left-sided weakness, type 2 diabetes mellitus, history of breast cancer, status post lumpectomy on the left side, history of GI bleed, and dementia. REVIEW OF SYSTEMS: A 14-point review of system is negative except as in the HPI. FAMILY HISTORY: Noncontributory. ALLERGIES: ALLERGIC TO CIPROFLOXACIN AND FISH. MEDICATIONS: Reviewed by nurse, see med reconciliation sheet. PHYSICAL EXAMINATION VITAL SIGNS: Temperature 98.4, pulse rate 60, blood pressure 158/79, respiratory rate of 18, oxygen saturation 98% via room air. GENERAL: The patient is sitting up in bed, no acute distress. HEENT: Head is atraumatic and normocephalic. PERRLA. Extraocular muscles intact. NECK: Supple. No JVD. No adenopathy noted. LUNGS: Clear to auscultation. No adventitious sounds. HEART: S1 and S2, normal rate and rhythm. No murmurs, rubs, or gallops. ABDOMEN: Soft, nontender, nondistended. Bowel sounds present. EXTREMITIES: No clubbing, no cyanosis. Peripheral pulses 2+ felt bilaterally. NEUROLOGIC: The patient is alert and oriented to person and place, not much to month or year. Recall after 5 minutes is 0 out of 3. Poor attention span, short thought process is agitated. Cranial nerves II through XII intact. Motor exam: Has residual left-sided weakness from prior CVA. Sensory exam: Decreased light touch pinprick to calves bilaterally, decreased vibrations to toes. DTRs are 2+ throughout and 1 at the knees and ankles. Coordination: [id number]-[id number] intact. Gait is deferred for now. LABORATORY DATA: Sodium 138, potassium 4.1, chloride 99, carbon dioxide 32, BUN of 18, creatinine 1.2, random glucose of 187. ASSESSMENT AND PLAN: This is a 86-year-old woman with past medical history of atrial fibrillation, dyslipidemia, coronary artery disease, status post coronary artery bypass graft, status post pacemaker placement, hypertension, chronic obstructive pulmonary disease, cerebrovascular accident with residual left-sided weakness, type 2 diabetes mellitus, history of breast cancer, status post lumpectomy on the left side; history of gastrointestinal bleeding, history of dementia, who is having more confusion, been agitated, and apparently never like this before. She is admitted for back pain and CT abdomen shows large amount of fecal material in the rectum. The patient is refusing examination with other consultants. At this time, my impression is that she is altered mental status with more dementia with behavioral disturbance secondary for underlying generalized medical conditions. At this time recommend; 1. Monitor electrolytes and correct accordingly. 2. Keep blood pressure systolic between 120 to 140 mmHg. 3. Avoid sedative medications and avoid nighttime interruptions. 4. Delirium precautions. 5. If the patient gets further agitated, consider low dose Seroquel at 12.5 mg p.o. at bedtime and thiamine 100 mg p.o. daily. At this time, she is clinically stable. Thank you for this consult. Continue to manage her underlying urinary tract infection per ID. Jorge Ness MD
--- NOTE | 2017-01-08 08:15 | CP.PCM.PN ---
Subjective - Date & Time of Evaluation Date of Evaluation: 01/08/17 Time of Evaluation: 07:00 - Subjective Subjective: Stable on 2R. No CP or SOB. She was confused yesterday and during the night. She was OOB and there was brief ambulation to the BR reported. V/S noted. V. Pace. A. Sensed. PE: Lungs: clear Cor.: S1S2 Abd.: soft Ext.: no edema Neuro.: dementia (worse in hospital setting) CT head noted: no acute findings Objective - Vital Signs/Intake and Output Vital Signs (last 24 hours): Temp Pulse Resp BP Pulse Ox 97.6 F 63 20 168/63 H 94 L 01/08/17 05:59 01/08/17 05:59 01/08/17 05:59 01/08/17 05:59 01/08/17 05:59 Intake and Output: 01/08/17 01/08/17 06:59 18:59 Intake Total 0 Output Total 300 Balance -300 - Medications Medications: Current Medications Amlodipine Besylate (Norvasc) 5 mg PO DAILY [facility] Last Admin: 01/07/17 09:35 Dose: 5 mg Apixaban (Eliquis) 5 mg PO BID [facility] PRN Reason: Protocol Last Admin: 01/07/17 17:00 Dose: 5 mg Aspirin (Aspirin Chewable) 81 mg PO DAILY [facility] Last Admin: 01/07/17 09:34 Dose: 81 mg Atorvastatin Calcium (Lipitor) 20 mg PO DIN [facility] Last Admin: 01/07/17 17:00 Dose: 20 mg Furosemide (Lasix) 40 mg PO DAILY [facility] Last Admin: 01/07/17 09:35 Dose: 40 mg Insulin Human Regular (Humulin R Low) 0 units SC ACHS [facility] PRN Reason: Protocol Last Admin: 01/07/17 21:42 Dose: Not Given Losartan Potassium (Cozaar) 100 mg PO DAILY [facility] Last Admin: 01/07/17 09:34 Dose: 100 mg Non-Formulary Medication (Metformin Hcl [Metformin Hcl Er]) 500 mg PO DAILY [facility] Last Admin: 01/07/17 09:36 Dose: Not Given Potassium Chloride (K-Dur 20 Meq Er Tab) 20 meq PO BRK [facility] Last Admin: 01/07/17 09:34 Dose: 20 meq - Labs Labs: 01/07/17 06:15 01/07/17 06:15 PT 11.1 Seconds (9.9-11.8) 01/06/17 14:30 INR 1.03 (0.93-1.08) 01/06/17 14:30 APTT 26.1 Seconds (23.7-30.8) 01/06/17 14:30 Assessment and Plan - Assessment and Plan (Free Text) Assessment: Weak/back pain/AMS Diabetes PAF PPM HBP HLD CAD/CABG Gall Stones Renal Stones Breast ca. with remote lumpectomy and chemo Former Smoker Diverticulitis Plan: As per Neuro., ID, Psych and Dr. Peralta Titrate BP meds as needed OOB as angie/PT Monitor labs, sats., BS's etc. Out-pt PPM f/u as arranged.
[2017-01-08] MEDS: Insulin Reg-LOW-Coverage SC SCH ×4 (11:08→21:48)
[2017-01-08] MEDS: METFORMIN HCL 500 MG PO SCH (11:19)
[2017-01-08] MEDS: Potassium Chloride 20 mEq ER Tab PO SCH (11:26)
--- NOTE | 2017-01-08 11:26 | CP.PCM.PN ---
Subjective - Date & Time of Evaluation Date of Evaluation: 01/08/17 Time of Evaluation: 10:05 - Subjective Subjective: Comfortable, not in distress, afebrile, but still agitated and is verbally aggressive. Objective - Vital Signs/Intake and Output Vital Signs (last 24 hours): Temp Pulse Resp BP Pulse Ox 97.6 F 63 20 168/63 H 94 L 01/08/17 05:59 01/08/17 05:59 01/08/17 05:59 01/08/17 05:59 01/08/17 05:59 Intake and Output: 01/07/17 01/08/17 18:59 06:59 Intake Total 660 0 Output Total 300 Balance 660 -300 - Medications Medications: Current Medications Amlodipine Besylate (Norvasc) 5 mg PO DAILY [facility] Last Admin: 01/07/17 09:35 Dose: 5 mg Apixaban (Eliquis) 5 mg PO BID [facility] PRN Reason: Protocol Last Admin: 01/07/17 17:00 Dose: 5 mg Aspirin (Aspirin Chewable) 81 mg PO DAILY [facility] Last Admin: 01/07/17 09:34 Dose: 81 mg Atorvastatin Calcium (Lipitor) 20 mg PO DIN [facility] Last Admin: 01/07/17 17:00 Dose: 20 mg Furosemide (Lasix) 40 mg PO DAILY [facility] Last Admin: 01/07/17 09:35 Dose: 40 mg Insulin Human Regular (Humulin R Low) 0 units SC ACHS [facility] PRN Reason: Protocol Last Admin: 01/07/17 21:42 Dose: Not Given Losartan Potassium (Cozaar) 100 mg PO DAILY [facility] Last Admin: 01/07/17 09:34 Dose: 100 mg Non-Formulary Medication (Metformin Hcl [Metformin Hcl Er]) 500 mg PO DAILY [facility] Last Admin: 01/07/17 09:36 Dose: Not Given Potassium Chloride (K-Dur 20 Meq Er Tab) 20 meq PO BRK [facility] Last Admin: 01/07/17 09:34 Dose: 20 meq - Labs Labs: 01/07/17 06:15 01/07/17 06:15 PT 11.1 Seconds (9.9-11.8) 01/06/17 14:30 INR 1.03 (0.93-1.08) 01/06/17 14:30 APTT 26.1 Seconds (23.7-30.8) 01/06/17 14:30 - Constitutional Appears: Non-toxic, No Acute Distress, Other (patient does not want to be examined physically) Assessment and Plan - Assessment and Plan (Free Text) Plan: Assessment currently no evidence of infection with negative urine cultures Confusion, etiology to be determined history of urinary tract infection with Pseudomonas atrial fibrillation dyslipidemia coronary artery disease S/P CABG S/P pacemaker placement HTN COPD cerebrovascular accident with residual left-sided weakness DM history of breast cancer S/P lumpectomy on the left side history of GI bleed history of urinary incontinence Plan patient has been given Ceftriaxone; urine cx are negative - since she was given Ciprofloxacin right around the time of urine cx collection, will repeat urine cx and urinalysis - will monitor off antibiotics CT head did not show acute pathology; Neurology is recommending Psyche evaluation and we are awaiting their recommendations will continue to monitor clinically
--- NOTE | 2017-01-08 21:19 | CP.PCM.PN ---
Subjective - Date & Time of Evaluation Date of Evaluation: 01/08/17 Time of Evaluation: 21:19 - Subjective Subjective: Seen at bedside for her complaint of right knee pain. Pain is 10/10 , sharp, for past one week, denies any injury fall. States that she might have arthritis. Has no other complaints now. Requested tylenol with (??) for her pain. Denies pains in any other joints of body,denies weakness. ROS:Negative except as mentioned above. Medical record was reviewed. This 86 year old white woman was admitted with back pain. Has PMH of dementia, atrial fibrillation, breast cancer (Left), COPD, Lumpectomy. CT lumbar spine showed DJD,spinal stenosis, disc bulge at L3-L4. Objective - Vital Signs/Intake and Output Vital Signs (last 24 hours): Temp Pulse Resp BP Pulse Ox 98.6 F 63 19 152/67 H 96 01/08/17 16:57 01/08/17 18:00 01/08/17 16:57 01/08/17 16:57 01/08/17 16:57 Intake and Output: 01/08/17 01/09/17 18:59 06:59 Intake Total 1080 Output Total 2 Balance 1078 - Medications Medications: Current Medications Amlodipine Besylate (Norvasc) 5 mg PO DAILY [facility] Last Admin: 01/08/17 11:20 Dose: Not Given Apixaban (Eliquis) 5 mg PO BID [facility] PRN Reason: Protocol Last Admin: 01/08/17 17:46 Dose: 5 mg Aspirin (Aspirin Chewable) 81 mg PO DAILY [facility] Last Admin: 01/08/17 11:00 Dose: Not Given Atorvastatin Calcium (Lipitor) 20 mg PO DIN [facility] Last Admin: 01/08/17 17:46 Dose: 20 mg Furosemide (Lasix) 40 mg PO DAILY [facility] Last Admin: 01/08/17 11:28 Dose: Not Given Haloperidol Lactate (Haldol) 1 mg IM Q8 PRN; Protocol PRN Reason: Agitation Insulin Human Regular (Humulin R Low) 0 units SC [facility] PRN Reason: Protocol Last Admin: 01/08/17 16:57 Dose: 1 units Losartan Potassium (Cozaar) 100 mg PO DAILY [facility] Last Admin: 01/08/17 11:28 Dose: Not Given Non-Formulary Medication (Metformin Hcl [Metformin Hcl Er]) 500 mg PO DAILY [facility] Last Admin: 01/08/17 11:19 Dose: Not Given Potassium Chloride (K-Dur 20 Meq Er Tab) 20 meq PO BRK [facility] Last Admin: 01/08/17 11:26 Dose: Not Given Risperidone (Risperdal Tab) 0.25 mg PO DAILY [facility] PRN Reason: Protocol Last Admin: 01/08/17 12:30 Dose: Not Given Risperidone (Risperdal Tab) 0.25 mg PO Q4 PRN; Protocol PRN Reason: Agitation - Labs Labs: 01/07/17 06:15 01/07/17 06:15 PT 11.1 Seconds (9.9-11.8) 01/06/17 14:30 INR 1.03 (0.93-1.08) 01/06/17 14:30 APTT 26.1 Seconds (23.7-30.8) 01/06/17 14:30 - Constitutional Appears: Well, No Acute Distress - Head Exam Head Exam: ATRAUMATIC, NORMAL INSPECTION, NORMOCEPHALIC - Eye Exam Eye Exam: Normal appearance - ENT Exam ENT Exam: Normal External Ear Exam - Neck Exam Neck Exam: Normal Inspection - Respiratory Exam Respiratory Exam: NORMAL BREATHING PATTERN - Cardiovascular Exam Cardiovascular Exam: absent: JVD - GI/Abdominal Exam GI & Abdominal Exam: absent: Distended - Rectal Exam Rectal Exam: Deferred - Exam Additional comments: Deferred. - Extremities Exam Extremities Exam: Normal Inspection Additional comments: Right proximal tibia area has minimal tenderness. Right knee exam normal. No swelling, redness, tenderness, has full ROM. - Back Exam Back Exam: NORMAL INSPECTION - Neurological Exam Neurological Exam: Alert, Oriented x3 - Psychiatric Exam Psychiatric exam: Normal Affect, Normal Mood - Skin Skin Exam: Normal Color Assessment and Plan - Assessment and Plan (Free Text) Assessment: Right knee pain. DJD. Breast cancer. COPD. Plan: Tylenol 975 mg PO STAT. Continue present management.
--- NOTE | 2017-01-08 21:35 | CP.PCM.HP ---
History of Present Illness - History of Present Illness History of Present Illness: Ms. Kerr is a 86 year old female brought to ED by family for back pain. CT lumbar spine showed degenrative disc disease, spinal stenosis, disc bulge at L3-L4. She has altered mental status. As per family she has mild dementia but her behaviour has been normal. She has been very agitated, abusive and declining medications. She is not oriented to place, time. As per daughter she had similar episode 5 months ago. Denies any pain. She has A-Fib on eliquis. HR is controlled. History of breast cancer on left side, s/p lumpectomy in 2000. COPD- no recent exacerbations. Present on Admission - Present on Admission Any Indicators Present on Admission: No Review of Systems - Review of Systems Systems not reviewed;Unavailable: Altered Mental Status - Constitutional Constitutional: As Per HPI - EENT Eyes: absent: As Per HPI, Blind Spots, Blurred Vision, Change in Vision, Decreased Night Vision, Diplopia, Discharge, Dry Eye, Exophthalmos, Floaters, Irritation, Itchy Eyes, Loss of Peripheral Vision, Pain, Photophobia, Requires Corrective Lenses, Sees Flashes, Spots in Vision, Tunnel Vision, Other Visual Disturbances, Loss of Vision, Other Ears: absent: As Per HPI, Decreased Hearing, Ear Discharge, Ear Pain, Tinnitus, Abnormal Hearing, Disequilibrium, Dizziness, Other Nose/Mouth/Throat: absent: As Per HPI, Epistaxis, Nasal Congestion, Nasal Discharge, Nasal Obstruction, Nasal Trauma, Nose Pain, Post Nasal Drip, Sinus Pain, Sinus Pressure, Bleeding Gums, Change in Voice, Dental Pain, Dry Mouth, Dysphagia, Halitosis, Hoarsness, Lip Swelling, Mouth Lesions, Mouth Pain, Odynophagia, Sore Throat, Throat Swelling, Tongue Swelling, Facial Pain, Neck Pain, Neck Mass, Other - Breasts Breasts: As Per HPI - Cardiovascular Cardiovascular: As Per HPI - Respiratory Respiratory: As Per HPI - Gastrointestinal Gastrointestinal: absent: As Per HPI, Abdominal Pain, Belching, Bloating, Change in Bowel Habits, Change in Stool Character, Coffee Ground Emesis, Constipation, Cramping, Diarrhea, Dyspepsia, Dysphagia, Early Satiety, Excessive Flatus, Fecal Incontinence, Heartburn, Hematemesis, Hematochezia, Loose Stools, Melena, Nausea, Odynophagia, Temesmus, Vomiting, Other - Genitourinary Genitourinary: absent: As Per HPI, Change in Urinary Stream, Difficulty Urinating, Dysuria, Flank Pain, Hematuria, Pyuria, Nocturia, Urinary Incontinence, Urinary Frequency, Urinary Hesitance, Urinary Urgency, Voiding Freq/Small Amts, Freq UTI, Hx Renal/Bladder Calculi, Hx /Renal Surgery, Bladder Distension, Other - Musculoskeletal Musculoskeletal: absent: As Per HPI, Abnormal Gait, Arthralgias, Atrophy, Back Pain, Deformity, Joint Swelling, Limited Range of Motion, Loss of Height, Muscle Cramps, Muscle Weakness, Myalgias, Neck Pain, Numbness, Radiating Pain into Limb, Stiffness, Tingling, Other - Neurological Neurological: As Per HPI - Psychiatric Psychiatric: As Per HPI - Endocrine Endocrine: absent: As Per HPI, Change in Body Appearance, Change in Libido, Cold Intolorance, Deepening of Voice, Excessive Sweating, Fatigue, Flushing, Heat Intolorance, Increase in Ring/Shoe/Hat Size, Palpitations, Polydipsia, Polyphagia, Polyuria, Other - Hematologic/Lymphatic Hematologic: As Per HPI Past Patient History - Infectious Disease Hx of Infectious Diseases: None - Tetanus Immunizations Tetanus Immunization: Unknown - Past Social History Smoking Status: Former Smoker - CARDIAC Hx Cardiac Disorders: Yes (CABG) Hx Cardia Arrhythmia: Yes (AFIB) Hx Circulatory Problems: Yes Hx Congestive Heart Failure: Yes Hx Hypercholesterolemia: Yes Hx Hypertension: Yes Hx Pacemaker: Yes Hx Peripheral Edema: Yes - PULMONARY Hx Respiratory Disorders: Yes (H/O OF SMOKING CIGARETTES QUIT) Hx Chronic Obstructive Pulmonary Disease (COPD): Yes - NEUROLOGICAL Hx Neurological Disorder: Yes HX Cerebrovascular Accident: Yes (left side weakness) Hx Dementia: Yes (MILD) - HEENT Hx HEENT Problems: Yes Hx Cataracts: Yes (bilateral sx) - ENDOCRINE/METABOLIC Hx Endocrine Disorders: Yes Hx Diabetes Mellitus Type 2: Yes - HEMATOLOGICAL/ONCOLOGICAL Hx Blood Disorders: Yes Hx Cancer: Yes (left breast lumpectomy had radiation 2000) Other/Comment: l breast lumpectomy 2000 - INTEGUMENTARY Hx Dermatological Problems: Yes Other/Comment: redness under breasts, redness to left buttock - MUSCULOSKELETAL/RHEUMATOLOGICAL Hx Musculoskeletal Disorders: Yes (CARPAL TUNNEL SX) Hx Falls: Yes Hx Unsteady Gait: Yes (uses a cane) - GASTROINTESTINAL Hx Gastrointestinal Disorders: Yes (gi bleed) - GENITOURINARY/GYNECOLOGICAL Hx Genitourinary Disorders: Yes (C SECTION X 1) Hx Incontinence: Yes (urine and stool) Hx Urinary Tract Infection: Yes - PSYCHIATRIC Hx Psychophysiologic Disorder: No Hx Depression: No Hx Emotional Abuse: No Hx Physical Abuse: No Hx Substance Use: No - SURGICAL HISTORY Hx Surgeries: Yes (C SECTION X 2) Hx Cardiac Catheterization: Yes Hx Coronary Stent: Yes (5) Hx Open Heart Surgery: Yes Hx Orthopedic Surgery: Yes Other/Comment: ptca, 5 stents, cabg 3 stents, carpal tunnel sx - ANESTHESIA Hx Anesthesia: No Hx Anesthesia Reactions: No Hx Malignant Hyperthermia: No Meds Allergies/Adverse Reactions: Allergies Allergy/AdvReac Type Severity Reaction Status Date / Time ciprofloxacin Allergy RASH Verified 01/06/17 18:42 FISH Allergy RASH Verified 01/06/17 18:42 Physical Exam - Constitutional Appears: Non-toxic, Agitated, Confused - Head Exam Head Exam: ATRAUMATIC, NORMAL INSPECTION - Eye Exam Eye Exam: Normal appearance Pupil Exam: NORMAL ACCOMODATION - ENT Exam ENT Exam: Mucous Membranes Moist - Neck Exam Neck exam: Positive for: Normal Inspection - Respiratory Exam Respiratory Exam: Clear to Auscultation Bilateral, NORMAL BREATHING PATTERN - GI/Abdominal Exam GI & Abdominal Exam: Normal Bowel Sounds - Extremities Exam Extremities exam: Positive for: normal inspection - Neurological Exam Neurological exam: Alert, Altered, CN II-XII Intact - Psychiatric Exam Psychiatric exam: Agitated - Skin Skin Exam: Normal Color, Warm Results - Vital Signs Recent Vital Signs: Last Vital Signs Temp 98.6 F 01/08/17 16:57 Pulse 63 01/08/17 18:00 Resp 19 01/08/17 16:57 BP 152/67 H 01/08/17 16:57 Pulse Ox 96 01/08/17 16:57 - Labs Result Diagrams: 01/07/17 06:15 01/07/17 06:15 Labs: Laboratory Results - last 24 hr 01/07/17 01/08/17 01/08/17 21:38 07:17 11:16 POC Glucose (mg/dL) 209 H 142 H 390 H 01/08/17 16:21 POC Glucose (mg/dL) 346 H Assessment & Plan - Assessment and Plan (Free Text) Assessment: 1. Delirium : acute. Baseline dementia. Neuro consult DR. Ness requested. CT head ordered. reviewed- no acute changes. Psych consult requested. 2. A- FIb . heart rate controlled. eliquis 5 mg PO BID . 3. H/O breast cancer : 17 years ago. AMS unlikely due to recurrence. 4. Back pain : degenerative disc disease. neuro consulted. Not complaining of pain now. 5. CAD : continue cardiac meds. 6. DM II : insulin as per sliding scale.
--- NOTE | 2017-01-08 21:42 | CP.PCM.PN ---
Subjective - Date & Time of Evaluation Date of Evaluation: 01/08/17 Time of Evaluation: 10:00 - Subjective Subjective: She is agitated. Refusing oral meds. Denies pain. Family bedside. She is altered. Not aware that she is in hospital. Objective - Vital Signs/Intake and Output Vital Signs (last 24 hours): Temp Pulse Resp BP Pulse Ox 98.6 F 63 19 152/67 H 96 01/08/17 16:57 01/08/17 18:00 01/08/17 16:57 01/08/17 16:57 01/08/17 16:57 Intake and Output: 01/08/17 01/09/17 18:59 06:59 Intake Total 1080 Output Total 2 Balance 1078 - Medications Medications: Current Medications Acetaminophen (Tylenol 325mg Tab) 975 mg PO STAT STA Stop: 01/08/17 21:36 Amlodipine Besylate (Norvasc) 5 mg PO DAILY [facility] Last Admin: 01/08/17 11:20 Dose: Not Given Apixaban (Eliquis) 5 mg PO BID [facility] PRN Reason: Protocol Last Admin: 01/08/17 17:46 Dose: 5 mg Aspirin (Aspirin Chewable) 81 mg PO DAILY [facility] Last Admin: 01/08/17 11:00 Dose: Not Given Atorvastatin Calcium (Lipitor) 20 mg PO DIN [facility] Last Admin: 01/08/17 17:46 Dose: 20 mg Furosemide (Lasix) 40 mg PO DAILY [facility] Last Admin: 01/08/17 11:28 Dose: Not Given Haloperidol Lactate (Haldol) 1 mg IM Q8 PRN; Protocol PRN Reason: Agitation Insulin Human Regular (Humulin R Low) 0 units SC ACHS [facility] PRN Reason: Protocol Last Admin: 01/08/17 16:57 Dose: 1 units Losartan Potassium (Cozaar) 100 mg PO DAILY [facility] Last Admin: 01/08/17 11:28 Dose: Not Given Non-Formulary Medication (Metformin Hcl [Metformin Hcl Er]) 500 mg PO DAILY [facility] Last Admin: 01/08/17 11:19 Dose: Not Given Potassium Chloride (K-Dur 20 Meq Er Tab) 20 meq PO BRK [facility] Last Admin: 01/08/17 11:26 Dose: Not Given Risperidone (Risperdal Tab) 0.25 mg PO DAILY [facility] PRN Reason: Protocol Last Admin: 01/08/17 12:30 Dose: Not Given Risperidone (Risperdal Tab) 0.25 mg PO Q4 PRN; Protocol PRN Reason: Agitation - Labs Labs: 01/07/17 06:15 01/07/17 06:15 PT 11.1 Seconds (9.9-11.8) 01/06/17 14:30 INR 1.03 (0.93-1.08) 01/06/17 14:30 APTT 26.1 Seconds (23.7-30.8) 01/06/17 14:30 - Constitutional Appears: Agitated, Confused - Head Exam Head Exam: ATRAUMATIC, NORMAL INSPECTION, NORMOCEPHALIC - Eye Exam Eye Exam: Normal appearance Pupil Exam: NORMAL ACCOMODATION - ENT Exam ENT Exam: Mucous Membranes Moist, Normal Exam - Neck Exam Neck Exam: Full ROM, Normal Inspection - Respiratory Exam Respiratory Exam: Clear to Ausculation Bilateral, NORMAL BREATHING PATTERN - Cardiovascular Exam Cardiovascular Exam: REGULAR RHYTHM, +S1, +S2 - GI/Abdominal Exam GI & Abdominal Exam: Soft, Normal Bowel Sounds - Extremities Exam Extremities Exam: Full ROM, Normal Capillary Refill, Normal Inspection - Neurological Exam Neurological Exam: Altered, Awake, CN II-XII Intact - Psychiatric Exam Psychiatric exam: Agitated, Anxious - Skin Skin Exam: Normal Color, Warm Assessment and Plan - Assessment and Plan (Free Text) Assessment: 1. Delirium : acute. Baseline dementia. Neuro consult DR. Ness appreciated. CT head no acute changes. Discussed with Dr. Chan. She is refusing resperidol. Haldol 1 mg Q 8 hr prn for agitation. 1:1 for observation ordered. 2. A- FIb . heart rate controlled. eliquis 5 mg PO BID . 3. H/O breast cancer : 17 years ago. AMS unlikely due to recurrence. 4. Back pain : degenerative disc disease. neuro consulted. Not complaining of pain now. 5. CAD : continue cardiac meds. 6. DM II : insulin as per sliding scale. Continue metformin 500 mg daily. discussed with the family bedside. They agreed with haldol prn. Family informed about Psych consult . possible transfer to Psych floor .
[2017-01-09] MEDS: Insulin Reg-LOW-Coverage SC SCH ×4 (08:16→22:01)
[2017-01-09] MEDS: Potassium Chloride 20 mEq ER Tab PO SCH (08:16)
--- NOTE | 2017-01-09 08:28 | CP.PCM.PN ---
Subjective - Date & Time of Evaluation Date of Evaluation: 01/09/17 Time of Evaluation: 07:00 - Subjective Subjective: Stable on 2R. No CP or SOB. Int confusion yesterday. Slept the night OK. V/S noted. V. Pace. A. Sensed. PE: Lungs: clear Cor.: S1S2 Abd.: soft Ext.: no edema Neuro.: alert CT head noted: no acute findings BC x2 NG at 48 hrs. Objective - Vital Signs/Intake and Output Vital Signs (last 24 hours): Temp Pulse Resp BP Pulse Ox 97.2 F L 70 18 170/69 H 92 L 01/09/17 06:00 01/09/17 07:02 01/09/17 06:00 01/09/17 07:02 01/09/17 06:00 - Medications Medications: Current Medications Amlodipine Besylate (Norvasc) 5 mg PO DAILY [facility] Last Admin: 01/09/17 07:02 Dose: 5 mg Apixaban (Eliquis) 5 mg PO BID [facility] PRN Reason: Protocol Last Admin: 01/08/17 17:46 Dose: 5 mg Aspirin (Aspirin Chewable) 81 mg PO DAILY [facility] Last Admin: 01/08/17 11:00 Dose: Not Given Atorvastatin Calcium (Lipitor) 20 mg PO DIN [facility] Last Admin: 01/08/17 17:46 Dose: 20 mg Furosemide (Lasix) 40 mg PO DAILY [facility] Last Admin: 01/08/17 11:28 Dose: Not Given Haloperidol Lactate (Haldol) 1 mg IM Q8 PRN; Protocol PRN Reason: Agitation Insulin Human Regular (Humulin R Low) 0 units SC ACHS [facility] PRN Reason: Protocol Last Admin: 01/09/17 08:16 Dose: 1 units Losartan Potassium (Cozaar) 100 mg PO DAILY [facility] Last Admin: 01/08/17 11:28 Dose: Not Given Non-Formulary Medication (Metformin Hcl [Metformin Hcl Er]) 500 mg PO DAILY [facility] Last Admin: 01/08/17 11:19 Dose: Not Given Potassium Chloride (K-Dur 20 Meq Er Tab) 20 meq PO BRK [facility] Last Admin: 01/09/17 08:16 Dose: 20 meq Risperidone (Risperdal Tab) 0.25 mg PO DAILY [facility] PRN Reason: Protocol Last Admin: 01/08/17 12:30 Dose: Not Given Risperidone (Risperdal Tab) 0.25 mg PO Q4 PRN; Protocol PRN Reason: Agitation - Labs Labs: 01/07/17 06:15 01/07/17 06:15 PT 11.1 Seconds (9.9-11.8) 01/06/17 14:30 INR 1.03 (0.93-1.08) 01/06/17 14:30 APTT 26.1 Seconds (23.7-30.8) 01/06/17 14:30 Assessment and Plan - Assessment and Plan (Free Text) Assessment: Weak/back pain/AMS Diabetes PAF PPM HBP HLD CAD/CABG Gall Stones Renal Stones Breast ca. with remote lumpectomy and chemo Former Smoker Diverticulitis Plan: As per Neuro., ID, Psych and Dr. Peralta Titrate BP meds as needed OOB as angie/PT Poss Psych admit. Out-pt PPM f/u as arranged.
[2017-01-09] MEDS: METFORMIN HCL 500 MG PO SCH (11:58)
[2017-01-09] MEDS: POLYETHYLENE GLYCOL 3350 17 GM/Dose PACKET PO SCH (12:14)
--- NOTE | 2017-01-09 12:15 | PCM.PSYCH ---
Initial Psychiatric Evaluation - Initial Psychiatric Evaluation Chief Complaint (in patient's own words): Confusion and agitation Patient's Reaction to Hospitalization: Patient has no particular reaction to hospitalization. The superficial. Insight and judgment poor. History of Present Illness and Precipitating Events: Chart reviewed. Case discussed with nursing and with 2 daughters who were visiting at the time of evaluation. The patient has coherent toe for been living independently although with a home visitor becoming several hours a day. She however is basically alone. For the past several months she has shown a decline in her cognitive capacity, with some forgetfulness about with no overt bizarre behavior. She does not have a psychiatric history. She does not have a substance abuse history. The patient herself explains that she was admitted because she was having trouble moving her lower extremities. In the course of her treatment she had become agitated and confused.. That this mental state of confusion and intermittent agitation has necessitated the use of Haldol when necessary and now Risperdal Current Medications: Active Medications Generic Name Dose Route Start Last Admin Trade Name Freq PRN Reason Stop Dose Admin Amlodipine Besylate 5 mg 01/07/17 10:00 01/09/17 07:02 Norvasc PO 5 mg DAILY [facility] Administration Apixaban 5 mg 01/06/17 18:30 01/09/17 09:50 Eliquis PO 5 mg BID [facility] Administration Protocol Aspirin 81 mg 01/07/17 10:00 01/09/17 09:50 Aspirin Chewable PO 81 mg DAILY [facility] Administration Atorvastatin Calcium 20 mg 01/07/17 17:00 01/08/17 17:46 Lipitor PO 20 mg DIN [facility] Administration Docusate Sodium 100 mg 01/09/17 11:30 Colace PO BID [facility] Furosemide 40 mg 01/07/17 10:00 01/09/17 09:50 Lasix PO 40 mg DAILY [facility] Administration Haloperidol Lactate 1 mg 01/08/17 12:19 Haldol IM Q8 PRN Agitation Protocol Insulin Human Regular 0 units 01/06/17 22:00 01/09/17 08:16 Humulin R Low SC 1 units ACHS [facility] Administration Protocol Losartan Potassium 100 mg 01/07/17 10:00 01/09/17 09:50 Cozaar PO 100 mg DAILY [facility] Administration Non-Formulary Medication 500 mg 01/07/17 10:00 01/08/17 11:19 Metformin Hcl [Metformin Hcl Er] PO Not Given DAILY [facility] Polyethylene Glycol 17 gm 01/09/17 11:30 Miralax PO DAILY [facility] Potassium Chloride 20 meq 01/07/17 08:00 01/09/17 08:16 K-Dur 20 Meq Er Tab PO 20 meq BRK [facility] Administration Risperidone 0.25 mg 01/08/17 11:32 Risperdal Tab PO Q4 PRN Agitation Protocol Risperidone 0.25 mg 01/09/17 10:37 01/09/17 10:48 Risperdal Tab PO 0.25 mg BID [facility] Administration Protocol Past Psychiatric History - Past Psychiatric History Prior Psychiatric Treatment: The patient does not have a prior psychiatric history Nature of Treatment: We'll work on symptom stabilization and possibly living arrangement J History of Abuse: Denies abuse History of ETOH/Drug Use: Denied History of Family Illness: Noncontributory Pertinent Medical Hx (Current Medical&Sleep Prob, Allergies): Allergies Allergy/AdvReac Type Severity Reaction Status Date / Time ciprofloxacin Allergy RASH Verified 01/06/17 18:42 FISH Allergy RASH Verified 01/06/17 18:42 Aspirin [Adult Low Dose Aspirin EC] 81 mg PO DAILY 11/27/16 Losartan Potassium 100 mg PO DAILY 11/27/16 Metformin HCl [Metformin HCl ER] 500 mg PO DAILY 11/27/16 Potassium Chloride [K-Dur 20] 20 meq PO DAILY 11/27/16 Simvastatin 40 mg PO DAILY 11/27/16 amLODIPine [Norvasc] 5 mg PO DAILY 11/27/16 Apixaban [Eliquis] 5 mg PO BID 01/06/17 Furosemide [Lasix] 40 mg PO DAILY 01/06/17 Mental Status Examination - Affect Affect: Constricted - Motor Activity Motor Activity: Calm (Has been agitated in the recent past but not presently) - Reliability in Providing Information Reliability in Providing Information: Poor, due to cognitve impairment - Speech Speech: Relevant (Has had memory deficits in the recent past. Is presently relatively disoriented to time) - Mood Mood: Neutral - Formal Thought Process Formal Thought Process: Other (Cognitive impairment) - Obsessions/Compulsions Obsessions: None Compulsions: None - Cognitive Functions Orientation: Person, Situation Sensorium: Other Attention/Concentration: Easily distracted Estimate of Intelligence: Average Judgement: Imparied, as evidence by: Poor judgement, Imparied, as evidence by: Lack of insight into illness, Imparied, as evidence by: Other - Risk Risk: Diminished functioning - Strength & Assets Inventory Strength & Assets Inventory: Family support, Other - Limitations Limitations: Living alone DSM 5 DX - DSM 5 DSM 5 Diagnosis: 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 He brought up possibility of further observation on the psychiatric unit. We'll presently maintained on low dose Risperdal to taper or attenuate agitation. We'll also start on Aricept. Prognosis: Guarded Discharge Plan and Discharge Criteria: Have gotten geriatric social worker involved in discussing options for placement and immediate treatment with patient's family - Smoking Cessation Smoking Cessation Initiated: No Reason for not providing: Nonsmoker
--- NOTE | 2017-01-09 17:04 | CP.PCM.PN ---
Subjective - Date & Time of Evaluation Date of Evaluation: 01/09/17 Time of Evaluation: 08:05 - Subjective Subjective: Comfortable in bed, not in distress, afebrile. Not agitated currently. Objective - Vital Signs/Intake and Output Vital Signs (last 24 hours): Temp Pulse Resp BP Pulse Ox 98.4 F 60 18 158/61 H 93 L 01/09/17 00:01 01/09/17 02:00 01/09/17 00:01 01/09/17 00:01 01/09/17 00:01 Intake and Output: 01/08/17 01/09/17 18:59 06:59 Intake Total 1080 Output Total 2 Balance 1078 - Medications Medications: Current Medications Amlodipine Besylate (Norvasc) 5 mg PO DAILY [facility] Last Admin: 01/08/17 11:20 Dose: Not Given Apixaban (Eliquis) 5 mg PO BID [facility] PRN Reason: Protocol Last Admin: 01/08/17 17:46 Dose: 5 mg Aspirin (Aspirin Chewable) 81 mg PO DAILY [facility] Last Admin: 01/08/17 11:00 Dose: Not Given Atorvastatin Calcium (Lipitor) 20 mg PO DIN [facility] Last Admin: 01/08/17 17:46 Dose: 20 mg Furosemide (Lasix) 40 mg PO DAILY [facility] Last Admin: 01/08/17 11:28 Dose: Not Given Haloperidol Lactate (Haldol) 1 mg IM Q8 PRN; Protocol PRN Reason: Agitation Insulin Human Regular (Humulin R Low) 0 units SC ACHS [facility] PRN Reason: Protocol Last Admin: 01/08/17 21:48 Dose: 2 units Losartan Potassium (Cozaar) 100 mg PO DAILY [facility] Last Admin: 01/08/17 11:28 Dose: Not Given Non-Formulary Medication (Metformin Hcl [Metformin Hcl Er]) 500 mg PO DAILY [facility] Last Admin: 01/08/17 11:19 Dose: Not Given Potassium Chloride (K-Dur 20 Meq Er Tab) 20 meq PO BRK [facility] Last Admin: 01/08/17 11:26 Dose: Not Given Risperidone (Risperdal Tab) 0.25 mg PO DAILY [facility] PRN Reason: Protocol Last Admin: 01/08/17 12:30 Dose: Not Given Risperidone (Risperdal Tab) 0.25 mg PO Q4 PRN; Protocol PRN Reason: Agitation - Labs Labs: 01/07/17 06:15 01/07/17 06:15 PT 11.1 Seconds (9.9-11.8) 01/06/17 14:30 INR 1.03 (0.93-1.08) 01/06/17 14:30 APTT 26.1 Seconds (23.7-30.8) 01/06/17 14:30 - Constitutional Appears: Non-toxic, No Acute Distress - Head Exam Head Exam: NORMAL INSPECTION - Neck Exam Neck Exam: absent: Meningismus - Respiratory Exam Respiratory Exam: Decreased Breath Sounds - Cardiovascular Exam Cardiovascular Exam: +S1, +S2 - GI/Abdominal Exam GI & Abdominal Exam: Soft. absent: Tenderness Assessment and Plan - Assessment and Plan (Free Text) Plan: Assessment currently no evidence of infection with negative urine cultures Confusion, etiology to be determined history of urinary tract infection with Pseudomonas atrial fibrillation dyslipidemia coronary artery disease S/P CABG S/P pacemaker placement HTN COPD cerebrovascular accident with residual left-sided weakness DM history of breast cancer S/P lumpectomy on the left side history of GI bleed history of urinary incontinence Plan patient has been given Ceftriaxone; urine cx are negative - since she was given Ciprofloxacin right around the time of urine cx collection, will repeat urine cx and urinalysis - will continue to monitor off antibiotics CT head did not show acute pathology; Neurology is recommending Psych evaluation and we are awaiting their recommendations discussed with Dr. Guevara
--- NOTE | 2017-01-09 20:24 | PN ---
DATE: 01/09/2017 SUBJECTIVE: The patient has no complaints of any chest pain, no shortness of breath or headaches. She denies any not going home. She states she does not have any back pain. She states she is able to ambulate. I did speak to the patient's daughter to give an update on the patient's diagnosis and plan of care. Currently, the patient is not able to live alone. At this point, she is having difficult time at managing. The patient's family considering subacute rehab to long-term care. She does not have any urinary tract infection. I did speak to Dr. Treviño regarding the case. PHYSICAL EXAMINATION: VITAL SIGNS: Temperature is 97.1, pulse is 64, blood pressure 114/83 and respirations 19. GENERAL: The patient is lying in bed, flat, comfortable. HEENT: No oral lesion. Anicteric sclerae. Moist mucosa. NECK: No JVD, adenopathy, or thyromegaly. CARDIOVASCULAR: S1 and S2, regular. No murmurs, rubs, or gallops. LUNGS: Clear to auscultation bilaterally. No wheeze, rales, or rhonchi. ABDOMEN: Bowel sounds are positive, soft, nontender and nondistended. EXTREMITIES: no cyanosis, clubbing or edema. LABORATORY DATA: White count of 5.9 and hemoglobin 12.1. Chemistry has been reviewed. ASSESSMENT: 1. Delirium, improved. 2. Dementia with agitation, improving. 3. Hypertension. 4. Atrial fibrillation. 5. Diabetes type 2. 6. Nephrolithiasis. 7. Cholelithiasis. 8. Dyslipidemia. 9. Coronary artery disease. 10. Dementia, Alzheimer's type. PLAN: The patient is currently comfortable. She has underlying dementia. The patient is going to the rehab. She is not able live alone because of danger to herself. She is going to continue Colace for constipation. She is on Lipitor for dyslipidemia. The patient has been started on risperidone. The patient is on a heart healthy diet. Jose Peralta MD
[2017-01-10] MEDS: Insulin Reg-LOW-Coverage SC SCH ×5 (07:40→21:15)
[2017-01-10] MEDS: POLYETHYLENE GLYCOL 3350 17 GM/Dose PACKET PO SCH (09:27)
[2017-01-10] MEDS: Potassium Chloride 20 mEq ER Tab PO SCH (09:29)
[2017-01-10] MEDS: METFORMIN HCL 500 MG PO SCH (10:30)
--- NOTE | 2017-01-10 15:51 | CP.PCM.PN ---
Subjective - Date & Time of Evaluation Date of Evaluation: 01/10/17 Time of Evaluation: 07:45 - Subjective Subjective: Comfortably resting in bed, not in distress, not agitated this morning. No fevers overnight, no dysuria. Objective - Vital Signs/Intake and Output Vital Signs (last 24 hours): Temp Pulse Resp BP Pulse Ox 98.1 F 92 H 20 140/79 95 01/10/17 06:00 01/10/17 06:00 01/10/17 06:00 01/10/17 06:00 01/10/17 06:00 Intake and Output: 01/10/17 01/10/17 06:59 18:59 Intake Total 240 Balance 240 - Medications Medications: Current Medications Amlodipine Besylate (Norvasc) 5 mg PO DAILY [facility] Last Admin: 01/09/17 10:00 Dose: Not Given Apixaban (Eliquis) 5 mg PO BID [facility] PRN Reason: Protocol Last Admin: 01/09/17 17:43 Dose: 5 mg Aspirin (Aspirin Chewable) 81 mg PO DAILY [facility] Last Admin: 01/09/17 09:50 Dose: 81 mg Atorvastatin Calcium (Lipitor) 20 mg PO DIN [facility] Last Admin: 01/09/17 17:43 Dose: 20 mg Docusate Sodium (Colace) 100 mg PO BID [facility] Last Admin: 01/09/17 17:37 Dose: Not Given Donepezil HCl (Aricept) 5 mg PO HS [facility] Last Admin: 01/09/17 22:01 Dose: 5 mg Furosemide (Lasix) 40 mg PO DAILY [facility] Last Admin: 01/09/17 09:50 Dose: 40 mg Haloperidol Lactate (Haldol) 1 mg IM Q8 PRN; Protocol PRN Reason: Agitation Insulin Human Regular (Humulin R Low) 0 units SC [facility] PRN Reason: Protocol Last Admin: 01/09/17 22:01 Dose: 3 units Losartan Potassium (Cozaar) 100 mg PO DAILY [facility] Last Admin: 01/09/17 09:50 Dose: 100 mg Non-Formulary Medication (Metformin Hcl [Metformin Hcl Er]) 500 mg PO DAILY [facility] Last Admin: 01/09/17 11:58 Dose: Not Given Polyethylene Glycol (Miralax) 17 gm PO DAILY [facility] Last Admin: 01/09/17 12:14 Dose: Not Given Potassium Chloride (K-Dur 20 Meq Er Tab) 20 meq PO BRK [facility] Last Admin: 01/09/17 08:16 Dose: 20 meq Risperidone (Risperdal Tab) 0.25 mg PO Q4 PRN; Protocol PRN Reason: Agitation Risperidone (Risperdal Tab) 0.25 mg PO BID [facility] PRN Reason: Protocol Last Admin: 01/09/17 17:43 Dose: 0.25 mg - Labs Labs: 01/07/17 06:15 01/07/17 06:15 PT 11.1 Seconds (9.9-11.8) 01/06/17 14:30 INR 1.03 (0.93-1.08) 01/06/17 14:30 APTT 26.1 Seconds (23.7-30.8) 01/06/17 14:30 - Constitutional Appears: Non-toxic, No Acute Distress - Head Exam Head Exam: NORMAL INSPECTION - ENT Exam ENT Exam: Mucous Membranes Moist - Neck Exam Neck Exam: absent: Meningismus - Respiratory Exam Respiratory Exam: Decreased Breath Sounds - Cardiovascular Exam Cardiovascular Exam: +S1, +S2 - GI/Abdominal Exam GI & Abdominal Exam: Soft. absent: Tenderness Assessment and Plan - Assessment and Plan (Free Text) Plan: Assessment currently no evidence of infection with negative urine cultures Confusion, probably from dementia history of urinary tract infection with Pseudomonas atrial fibrillation dyslipidemia coronary artery disease S/P CABG S/P pacemaker placement HTN COPD cerebrovascular accident with residual left-sided weakness DM history of breast cancer S/P lumpectomy on the left side history of GI bleed history of urinary incontinence Plan patient was given Ceftriaxone; urine cx are negative CT head did not show acute pathology; reviewed Neurology and Psych evaluations discussed with Dr. Guevara
--- NOTE | 2017-01-11 03:49 | PN ---
DATE: 01/10/2017 SUBJECTIVE: The patient has no complaints of any chest pain, no shortness of breath, no headaches or dizziness. PHYSICAL EXAMINATION: VITAL SIGNS: Temperature of 97.2, pulse of 57, blood pressure 132/56, and respirations 18. GENERAL: The patient is lying in bed, flat, comfortable. HEENT: No oral lesion. Anicteric sclerae. Moist mucosa. NECK: No JVD, adenopathy, or thyromegaly. CARDIOVASCULAR: S1 and S2, regular. No murmurs, rubs, or gallops. LUNGS: Clear to auscultation bilaterally. No wheeze, rales, or rhonchi. ABDOMEN: Bowel sounds are positive, soft, nontender and nondistended. EXTREMITIES: no cyanosis, clubbing or edema. LABORATORY DATA: Reviewed. Blood cultures and urine cultures had been negative. ASSESSMENT: 1. Delirium, resolved. 2. Dementia with agitation, improving. 3. Hypertension. 4. Atrial fibrillation. 5. Diabetes type 2. 6. Nephrolithiasis. 7. Cholelithiasis. 8. Dyslipidemia. 9. Coronary artery disease. PLAN: The patient is currently comfortable. I did speak to the patient's daughter at the bedside this morning. I saw her earlier today. The patient is on Colace for constipation and losartan for hypertension. She is going to continue with Eliquis for her anticoagulation. She is on Lasix daily. She is on Lipitor for dyslipidemia. The patient is on risperidone. She has been followed by psychiatry. We will await the patient to get place to long-term care facility as the patient currently cannot take care of the patient anymore. She lives alone and danger to herself. Jose Peralta MD
[2017-01-11 06:50] VITALS: RESP 20
--- NOTE | 2017-01-11 08:19 | PN ---
DATE: 01/11/2017 SUBJECTIVE: The patient has no complaints of any chest pain, no shortness of breath. She is asking about going home. She says she is well enough to go home. PHYSICAL EXAMINATION: VITAL SIGNS: Temperature is 97.2, pulse of 67, blood pressure is 132/56, and respirations 18. GENERAL: The patient is lying in bed, flat, comfortable. HEENT: No oral lesion. Anicteric sclerae. Moist mucosa. NECK: No JVD, adenopathy, or thyromegaly. CARDIOVASCULAR: S1 and S2, regular. No murmurs, rubs, or gallops. LUNGS: Clear to auscultation bilaterally. No wheeze, rales, or rhonchi. ABDOMEN: Bowel sounds are positive, soft, nontender and nondistended. EXTREMITIES: No cyanosis, clubbing or edema. ASSESSMENT: 1. Delirium, resolved. 2. Dementia with agitation, improved. 3. Hypertension. 4. Atrial fibrillation. 5. Diabetes type 2. 6. Nephrolithiasis. 7. Cholelithiasis. 8. Dyslipidemia. 9. Coronary artery disease. PLAN: The patient is currently on Aricept. She is going to continue with Colace for constipation. The patient is on Eliquis for anticoagulation. She is on Lasix daily. She is on Lipitor for dyslipidemia. She is on risperidone. She is on heart healthy diet. Waiting for discharge. Jose Peralta MD
[2017-01-11] MEDS: Insulin Reg-LOW-Coverage SC SCH ×4 (08:23→21:48)
[2017-01-11] MEDS: Potassium Chloride 20 mEq ER Tab PO SCH (09:00)
[2017-01-11] MEDS: POLYETHYLENE GLYCOL 3350 17 GM/Dose PACKET PO SCH (09:49)
[2017-01-11] MEDS: METFORMIN HCL 500 MG PO SCH (09:49)
--- NOTE | 2017-01-11 14:03 | CP.PCM.PN ---
Subjective - Date & Time of Evaluation Date of Evaluation: 01/11/17 Time of Evaluation: 07:35 - Subjective Subjective: Comfortable in bed, afebrile, not in distress. Objective - Vital Signs/Intake and Output Vital Signs (last 24 hours): Temp Pulse Resp BP Pulse Ox 97.7 F 61 20 151/58 H 98 01/11/17 06:00 01/11/17 06:00 01/11/17 06:00 01/11/17 06:00 01/11/17 06:00 Intake and Output: 01/11/17 01/11/17 06:59 18:59 Intake Total 600 0 Balance 600 0 - Medications Medications: Current Medications Amlodipine Besylate (Norvasc) 5 mg PO DAILY [facility] Last Admin: 01/10/17 09:27 Dose: 5 mg Apixaban (Eliquis) 5 mg PO BID [facility] PRN Reason: Protocol Last Admin: 01/10/17 17:30 Dose: 5 mg Aspirin (Aspirin Chewable) 81 mg PO DAILY [facility] Last Admin: 01/10/17 09:28 Dose: 81 mg Atorvastatin Calcium (Lipitor) 20 mg PO DIN [facility] Last Admin: 01/10/17 17:30 Dose: 20 mg Docusate Sodium (Colace) 100 mg PO BID [facility] Last Admin: 01/10/17 17:30 Dose: 100 mg Donepezil HCl (Aricept) 5 mg PO HS [facility] Last Admin: 01/10/17 21:15 Dose: 5 mg Furosemide (Lasix) 40 mg PO DAILY [facility] Last Admin: 01/10/17 09:29 Dose: 40 mg Haloperidol Lactate (Haldol) 1 mg IM Q8 PRN; Protocol PRN Reason: Agitation Insulin Human Regular (Humulin R Low) 0 units SC [facility] PRN Reason: Protocol Last Admin: 01/10/17 21:15 Dose: 3 units Losartan Potassium (Cozaar) 100 mg PO DAILY [facility] Last Admin: 01/10/17 09:30 Dose: 100 mg Non-Formulary Medication (Metformin Hcl [Metformin Hcl Er]) 500 mg PO DAILY [facility] Last Admin: 01/10/17 10:30 Dose: Not Given Polyethylene Glycol (Miralax) 17 gm PO DAILY [facility] Last Admin: 01/10/17 09:27 Dose: 17 gm Potassium Chloride (K-Dur 20 Meq Er Tab) 20 meq PO BRK [facility] Last Admin: 01/10/17 09:29 Dose: 20 meq Risperidone (Risperdal Tab) 0.25 mg PO Q4 PRN; Protocol PRN Reason: Agitation Risperidone (Risperdal Tab) 0.25 mg PO BID [facility] PRN Reason: Protocol Last Admin: 01/10/17 17:30 Dose: 0.25 mg - Labs Labs: 01/07/17 06:15 01/07/17 06:15 PT 11.1 Seconds (9.9-11.8) 01/06/17 14:30 INR 1.03 (0.93-1.08) 01/06/17 14:30 APTT 26.1 Seconds (23.7-30.8) 01/06/17 14:30 - Constitutional Appears: Non-toxic, No Acute Distress - Head Exam Head Exam: NORMAL INSPECTION - ENT Exam ENT Exam: Mucous Membranes Moist - Neck Exam Neck Exam: absent: Lymphadenopathy, Meningismus - Respiratory Exam Respiratory Exam: Decreased Breath Sounds - Cardiovascular Exam Cardiovascular Exam: +S1, +S2 - GI/Abdominal Exam GI & Abdominal Exam: Soft. absent: Tenderness Assessment and Plan - Assessment and Plan (Free Text) Plan: Assessment currently no evidence of infection with negative urine cultures Confusion, probably from dementia history of urinary tract infection with Pseudomonas atrial fibrillation dyslipidemia coronary artery disease S/P CABG S/P pacemaker placement HTN COPD cerebrovascular accident with residual left-sided weakness DM history of breast cancer S/P lumpectomy on the left side history of GI bleed history of urinary incontinence Plan patient was given Ceftriaxone; urine cx are negative - will continue to monitor off antibiotics since she is at risk for nosocomial infections CT head did not show acute pathology; reviewed Neurology and Psych evaluations discussed with Dr. Guevara
[2017-01-11 16:48] VITALS: TEMP 97.8
--- NOTE | 2017-01-12 08:25 | PN ---
DATE: 01/11/2017 SUBJECTIVE: The patient is an 86-year-old white female, with no prior psychiatric history or substance abuse history, who was admitted because of difficulty moving her lower extremities, but who became agitated and confused. 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 Yesterday, she was more irritable, today she is calmer. I have reviewed her chart and discussed her case with nursing. Social work has been involved and at the request of the family, application to [facility] in [place] is being pursued. The patient is being maintained on Aricept 5 mg at bedtime and Risperdal 0.25 mg b.i.d. PHYSICAL EXAMINATION VITAL SIGNS: Blood pressure 148/62, temperature 97.8, respiratory rate 20, pulse 60. Anthony Chan MD/ PhD
[2017-01-12 08:54] VITALS: BP 161/54; PULSE 65; O2SAT 97
[2017-01-12] MEDS: Insulin Reg-LOW-Coverage SC SCH (09:54)
[2017-01-12] MEDS: POLYETHYLENE GLYCOL 3350 17 GM/Dose PACKET PO SCH (09:59)
[2017-01-12] MEDS: METFORMIN HCL 500 MG PO SCH (09:59)
[2017-01-12] MEDS: Potassium Chloride 20 mEq ER Tab PO SCH (10:19)
--- NOTE | 2017-01-13 05:46 | DS ---
SUBJECTIVE: The patient has no complaints of any chest pain, no shortness of breath. She was initially admitted the hospital because of back pain and pain in her legs and difficulty ambulating. She is waiting to go to a subacute facility and then into watermaster care, I spoke to the patient's daughter yesterday twice and they are interested in a facility, transition social worker is aware and working on the case. Once the bed becomes available, the patient will be discharge to facility. The patient no complaints any chest pain, no shortness of breath, no headache. PHYSICAL EXAMINATION: VITAL SIGNS: Temperature is 97.8, pulse of 60, blood pressure 148/62 and respirations 20. GENERAL: The patient is lying in bed, flat, comfortable. HEENT: No oral lesion. Anicteric sclerae. Moist mucosa. NECK: No JVD, adenopathy or thyromegaly. CARDIOVASCULAR: S1 and S2, regular. No murmurs, rubs or gallops. LUNGS: Clear to auscultation bilaterally. No wheeze, rales or rhonchi. ABDOMEN: Bowel sounds are positive, soft, nontender and nondistended. EXTREMITIES: No cyanosis, clubbing or edema. DISCHARGE DIAGNOSES: 1. Dementia with agitation, improved. 2. Delirium, resolved. 3. Hypertension. 4. Atrial fibrillation, on Eliquis. 5. Diabetic type 2. 6. Nephrolithiasis. 7. Cholelithiasis. 8. Dyslipidemia. 9. Coronary artery disease. PLAN: The patient is on Lasix daily, this will be continued. The patient is on Eliquis for anticoagulation and for atrial fibrillation. The patient is on losartan for hypertension. She is going to be on Aricept for dementia. The patient is on Risperdal, she has been followed by psychiatry. She is on heart healthy diet. Condition is stable. Activities increased as tolerated. Jose Peralta MD
== END 2017-01-12 12:51 | DRG 57 ==
LOC: ED 13:26 → ERH 16:22 → 2RSO 19:27 → 3RSO 01-09 21:10
PROVIDERS: ADMIT Internal Medicine Nephrology; ATTEND Internal Medicine Nephrology
DX: G30.9 Alzheimer's disease, unspecified (principal); F05 Delirium due to known physiological condition; I11.0 Hypertensive heart disease with heart failure; I50.9 Heart failure, unspecified; F02.81 Dementia in other diseases classified elsewhere, unspecified severity, with behavioral disturbance; N39.0 Urinary tract infection, site not specified; I69.354 Hemiplegia and hemiparesis following cerebral infarction affecting left non-dominant side; I48.0 Paroxysmal atrial fibrillation; E11.9 Type 2 diabetes mellitus without complications; N20.0 Calculus of kidney; K80.20 Calculus of gallbladder without cholecystitis without obstruction; E78.5 Hyperlipidemia, unspecified; I25.10 Atherosclerotic heart disease of native coronary artery without angina pectoris; M48.06 Spinal stenosis, lumbar region; J44.9 Chronic obstructive pulmonary disease, unspecified; M51.36 Other intervertebral disc degeneration, lumbar region; R26.2 Difficulty in walking, not elsewhere classified; K59.00 Constipation, unspecified; M25.561 Pain in right knee; Z87.891 Personal history of nicotine dependence; Z95.5 Presence of coronary angioplasty implant and graft; Z79.82 Long term (current) use of aspirin; Z79.84 Long term (current) use of oral hypoglycemic drugs; Z85.3 Personal history of malignant neoplasm of breast; Z95.1 Presence of aortocoronary bypass graft; Z95.0 Presence of cardiac pacemaker

== ENCOUNTER 2017-06-13 18:14 | Inpatient (IN) | payer BC, MEDICARE ==
[2017-06-13 18:15] VITALS: BMI 33.6
[2017-06-13 19:54] LABS: BASO # 0.01 K/mm3 (0.0-2.0); BASO % 0.1 % (0.0-3.0); GRAN # 11.14 (1.4-6.5); GRAN % 92.7 % (50.0-68.0); HEMOGLOBIN 15.1 g/dL (12.0-16.0); LYMPH # 0.7 (1.2-3.4); LYMPH % 6.2 % (22.0-35.0); MEAN CELL VOLUME 89.5 fl (80.0-105.0); MEAN CORPUSCULAR HEMOGLOBIN 29.4 pg (25.0-35.0); MEAN CORPUSCULAR HGB CONC 32.8 g/dl (31.0-37.0); MEAN PLATELET VOLUME 9.4 fl (7.0-11.0); MONO # 0.1 (0.1-0.6); PLATELET COUNT 226 10^3/uL (120.0-450.0); RBC 5.14 10^6/uL (3.5-6.1); RED CELL DISTRIBUTION WIDTH 17.1 % (11.5-14.5)
[2017-06-13 20:27] LABS: ALBUMIN 3.8 g/dL (3.0-4.8); CALCIUM 10.4 mg/dL (8.4-10.5); INR 1.85 (0.93-1.08); PARTIAL THROMBOPLASTIN TIME 32.1 Seconds (25.1-36.5); PROTHROMBIN TIME 21.3 SECONDS (9.4-12.5)
[2017-06-13] MEDS ORDERED: Sodium Bicarbonate (8.4%) 50 Meq Syringe IVP ONE (20:46)
[2017-06-13] MEDS ORDERED: Sod Polystyrene Sulf 15 gm/60 ml Susp PO STA (20:46)
[2017-06-13] MEDS ORDERED: Insulin Regular 1 UNITS/0.01 ML ML IVP STA (20:48)
[2017-06-13] MEDS ORDERED: Dextrose 50% SYRINGE Inj (50 ml) IVP STA (20:48)
[2017-06-13] MEDS ORDERED: Iohexol 240 (50 ml) ONE (21:30)
--- NOTE | 2017-06-13 21:51 | ED PDOC ---
Arrival/HPI - General Chief Complaint: Medical Clearance Time Seen by Provider: 06/13/17 18:32 Historian: Patient - History of Present Illness Narrative History of Present Illness (Text): 06/13/17 21:47 A 87 year old female sent into the emergency department from detention for an abnormally high potassium level. Patient complains of nausea, 1 episode of non-bilious non-bloody vomiting, watery diarrhea and mild abdominal discomfort. Patient denies any fever, chills, chest pain, shortness of breath, cough or any other complaints. PMD: Dr. Hall Time/Duration: Prior to Arrival Context: Home (detention) Past Medical History - Provider Review Nursing Documentation Reviewed: Yes - Infectious Disease Hx of Infectious Diseases: None - Tetanus Immunization Tetanus Immunization: Unknown - Reproductive Menopause: No - Cardiac Hx Cardiac Disorders: Yes (Afib, +pacemaker) Hx Congestive Heart Failure: Yes Hx Hypertension: Yes - Pulmonary Hx Chronic Obstructive Pulmonary Disease (COPD): Yes - Neurological HX Cerebrovascular Accident: Yes (L sided weakness) - HEENT Hx HEENT Disorder: Yes Hx Cataracts: Yes (bilateral sx) - Endocrine/Metabolic Hx Diabetes Mellitus Type 2: Yes - Hematological/Oncological Hx Blood Disorders: Yes Hx Cancer: Yes (left breast lumpectomy had radiation 2000) Other/Comment: l breast lumpectomy 2000 - Integumentary Hx Dermatological Disorder: Yes Other/Comment: redness under breasts, redness to left buttock - Musculoskeletal/Rheumatological Hx Musculoskeletal Disorders: Yes (CARPAL TUNNEL SX) Hx Falls: Yes Hx Unsteady Gait: Yes (uses a cane) - Gastrointestinal Hx Gastrointestinal Disorders: Yes (gi bleed) - Genitourinary/Gynecological Hx Genitourinary Disorders: Yes (C SECTION X 1) Hx Incontinence: Yes (urine and stool) Hx Urinary Tract Infection: Yes - Psychiatric Hx Psychophysiologic Disorder: No Hx Depression: No Hx Emotional Abuse: No Hx Physical Abuse: No Hx Substance Use: No - Surgical History Hx Cardiac Catheterization: Yes Hx Coronary Stent: Yes (5) Hx Open Heart Surgery: Yes Hx Orthopedic Surgery: Yes Other/Comment: ptca, 5 stents, cabg 3 stents, carpal tunnel sx - Anesthesia Hx Anesthesia: No Hx Anesthesia Reactions: No Hx Malignant Hyperthermia: No - Suicidal Assessment Feels Threatened In Home Enviroment: No Family/Social History - Physician Review Nursing Documentation Reviewed: Yes Family/Social History: No Known Family HX Smoking Status: Former Smoker Hx Alcohol Use: No Hx Substance Use: No Hx Substance Use Treatment: No Allergies/Home Meds Allergies/Adverse Reactions: Allergies ciprofloxacin Allergy (Verified 01/06/17 18:42) RASH FISH Allergy (Verified 01/06/17 18:42) RASH Home Medications: Home Meds Medication Instructions Recorded Confirmed Losartan Potassium 100 mg PO DAILY 11/27/16 06/13/17 Metformin HCl [Metformin HCl ER] 500 mg PO DAILY 11/27/16 06/13/17 Apixaban [Eliquis] 5 mg PO BID 01/06/17 06/13/17 Furosemide [Lasix] 40 mg PO DAILY 01/06/17 06/13/17 Review of Systems - Physician Review All systems were reviewed & negative as marked: Yes - Review of Systems Constitutional: Other (increased potassium). absent: Fevers, Night Sweats Respiratory: absent: SOB, Cough Cardiovascular: absent: Chest Pain Gastrointestinal: Abdominal Pain, Diarrhea, Nausea, Vomiting Physical Exam Vital Signs Reviewed: Yes Vital Signs Temp Pulse Resp BP Pulse Ox 06/13/17 21:52 71 18 157/42 H 100 06/13/17 18:48 97.8 F 70 18 72/54 L 100 Temperature: Afebrile Blood Pressure: Hypotensive Pulse: Regular Respiratory Rate: Normal Appearance: Positive for: Well-Appearing, Non-Toxic, Comfortable Pain Distress: None Mental Status: Positive for: Alert and Oriented X 3 - Systems Exam Head: Present: Atraumatic, Normocephalic Pupils: Present: PERRL Extroacular Muscles: Present: EOMI Conjunctiva: Present: Normal Mouth: Present: Moist Mucous Membranes Neck: Present: Normal Range of Motion Respiratory/Chest: Present: Clear to Auscultation, Good Air Exchange. No: Respiratory Distress, Accessory Muscle Use Cardiovascular: Present: Regular Rate and Rhythm, Normal S1, S2. No: Murmurs Abdomen: Present: Tenderness (mild tenderness to palpation), Normal Bowel Sounds. No: Distention, Peritoneal Signs Back: Present: Normal Inspection Upper Extremity: Present: Normal Inspection. No: Cyanosis, Edema Lower Extremity: Present: Normal Inspection. No: Edema Neurological: Present: GCS=15, CN II-XII Intact, Speech Normal Skin: Present: Warm, Dry, Normal Color. No: Rashes Psychiatric: Present: Alert, Oriented x 3, Normal Insight, Normal Concentration Medical Decision Making ED Course and Treatment: 06/13/17 21:47 Impression: A 87 year old female sent in for elevated potassium level. Patient complains of nausea, vomiting, diarrhea and abdominal pain. Medication was ordered immediately after potassium level results were received. Plan: -- Abdominal and pelvis CT -- Chest xray -- Labs -- Urine culture and Urinalysis -- Calcium gluconate, Dextrose, Insulin, Sodium barbonate and Kayexalate -- Reassess and disposition Progress Notes: EKG shows ventricular paced at 71 BPM. Interpreted by me. Dr. Kathryn daily. Awaiting call back. 06/13/17 21:[address] Peralta - Lab Interpretations Lab Results: 06/13/17 19:48 06/13/17 19:48 Lab Results 06/13/17 19:48: Sodium 135, Potassium 8.0 H* D, Chloride 104, Carbon Dioxide 20 L, Anion Gap 19, BUN 38 H, Creatinine 2.5 H, Est GFR ( Amer) 22, Est GFR (Non-Af Amer) 18, Random Glucose 243 H, Calcium 10.4, Total Bilirubin 0.5, AST 33, ALT 23, Alkaline Phosphatase 63, Total Protein 7.5, Albumin 3.8, Globulin 3.7, Albumin/Globulin Ratio 1.0 L 06/13/17 19:48: PT 21.3 H, INR 1.85 H, APTT 32.1 06/13/17 19:48: WBC 12.0 H D, RBC 5.14, Hgb 15.1, Hct 46.0, MCV 89.5, MCH 29.4, MCHC 32.8, RDW 17.1 H, Plt Count 226, MPV 9.4, Gran % 92.7 H, Lymph % (Auto) 6.2 L, [place] % (Auto) 1.0, Eos % (Auto) 0.0 L, Baso % (Auto) 0.1, Gran # 11.14 H , Lymph # 0.7 L, [place] # 0.1, Eos # 0.0, Baso # 0.01, Neutrophils % (Manual) Pending, Lymphocytes % (Manual) Pending, Monocytes % (Manual) Pending I have reviewed the lab results: Yes - RAD Interpretation Radiology Orders: 06/13/17 19:10 CHEST PORTABLE [RAD] Stat 06/13/17 20:31 ABD & PELVIS PO CONTRAST ONLY [CT] Stat - Medication Orders Current Medication Orders: Dextrose/Sodium Chloride (Dextrose 5%/0.9% Ns 1000 Ml) 1,000 mls @ 125 mls/hr IV .Q8H [facility] Insulin Human Regular 100 (units/ Sodium Chloride) 100 mls @ 4 mls/hr IV .Q24H PRN; Protocol; 4 UNITS/HR PRN Reason: TITRATE PER MD ORDER Ondansetron HCl (Zofran Inj) 4 mg IVP Q6H PRN PRN Reason: Nausea/Vomiting Sodium Polystyrene Sulfonate (Kayexalate Susp) 30 gm PO Q2H [facility] Discontinued Medications Albuterol Sulfate (Albuterol 0.5% Inhal Ekaterina (2.5 Mg/0.5 Ml) Ud) 10 mg IH STAT STA Stop: 06/13/17 22:54 Calcium Gluconate (Calcium Gluconate Iv) 1,000 mg IVP ONCE ONE Stop: 06/13/17 20:47 Last Admin: 06/13/17 22:00 Dose: 1,000 mg IVP Administration Document 06/13/17 22:00 EQ (Rec: 06/13/17 22:00 EQ [id number]) Charges for Administration # of IVP Administrations 1 Dextrose (Dextrose 50% Inj) 50 ml IVP STAT STA Stop: 06/13/17 20:49 Last Admin: 06/13/17 21:47 Dose: 50 ml IVP Administration Document 06/13/17 21:47 EQ (Rec: 06/13/17 21:59 EQ [id number]) Charges for Administration # of IVP Administrations 1 Insulin Human Regular (Humulin R) 4 units IVP STAT STA Stop: 06/13/17 20:49 Last Admin: 06/13/17 21:47 Dose: 4 units IVP Administration Document 06/13/17 21:47 EQ (Rec: 06/13/17 22:00 EQ [id number]) Charges for Administration # of IVP Administrations 1 Metoclopramide HCl (Reglan) 10 mg IVP STAT STA Stop: 06/13/17 22:19 Last Admin: 06/13/17 22:56 Dose: 10 mg IVP Administration Document 06/13/17 22:56 EQ (Rec: 06/13/17 22:56 EQ [id number]) Charges for Administration # of IVP Administrations 1 Ondansetron HCl (Zofran Inj) 8 mg IVP STAT STA Stop: 06/13/17 22:19 Last Admin: 06/13/17 22:56 Dose: 8 mg IVP Administration Document 06/13/17 22:56 EQ (Rec: 06/13/17 22:56 EQ [id number]) Charges for Administration # of IVP Administrations 1 Sodium Bicarbonate (Sodium Bicarbonate 8.4% (50 Meq) Syringe) 50 meq IVP ONCE ONE Stop: 06/13/17 20:47 Last Admin: 06/13/17 21:47 Dose: 50 meq IVP Administration Document 06/13/17 21:47 EQ (Rec: 06/13/17 21:47 EQ [id number]) Charges for Administration # of IVP Administrations 1 Sodium Polystyrene Sulfonate (Kayexalate Susp) 30 gm PO STAT STA Stop: 06/13/17 20:47 Last Admin: 06/13/17 21:47 Dose: 30 gm - Scribe Statement The provider has reviewed the documentation as recorded by the Katie Parmar Provider Scribe Attestation: All medical record entries made by the Henriibhalina were at my direction and personally dictated by me. I have reviewed the chart and agree that the record accurately reflects my personal performance of the history, physical exam, medical decision making, and the department course for this patient. I have also personally directed, reviewed, and agree with the discharge instructions and disposition. Disposition/Present on Arrival - Present on Arrival Any Indicators Present on Arrival: No History of DVT/PE: No History of Uncontrolled Diabetes: No Urinary Catheter: No History of Decub. Ulcer: No History Surgical Site Infection Following: None - Disposition Have Diagnosis and Disposition been Completed?: Yes Diagnosis: Vomiting, Abdominal pain, Acute on chronic renal failure, Hyperkalemia Disposition: HOSPITALIZED Disposition Time: 22:15 Condition: GUARDED
[2017-06-13] MEDS ORDERED: Insulin Regular 100 UNITS in Sodium Chloride 0.9% 99 ML IV PRN (22:52)
[2017-06-13] MEDS ORDERED: Albuterol 0.5% Inhal Sol (2.5 mg/0.5 ml) UD IH STA (22:53)
[2017-06-13] MEDS ORDERED: Dextrose 5%/0.9% NS 1,000 ML IV SCH (23:00)
[2017-06-14] MEDS ORDERED: Albuterol 0.5% Inhal Sol (2.5 mg/0.5 ml) UD IH ONE (00:10)
--- NOTE | 2017-06-14 00:18 | CP.PCM.CON ---
<Kika Gold - Last Filed: 06/13/17 23:57> History of Present Illness - History of Present Illness History of Present Illness: ICU Consult note for [facility] PGY2 This is an 87yo female with past medical history of HTN, A.fib (on Eliquis), DM , CAD s/p CABG and pacemaker placement, Dementia, CVA, breast cancer s/p radiation who was brought into the ED from the long term for elevated potassium. As per daughter, who is at bedside, the patient "did not seem right" in the long term so labs were ordered. The patient was noted to have a potassium >7 with elevated Cr of 2.5 and was subsequently sent to the ED. As per daughter, the patient is only alert to person and has significant dementia. She only responds to some questions. ROS was limited. Patient only reported having some abdominal pain. In ED, patient was given Calcium gluconate, Kayexylate and Insulin. Past medical history: HTN, A.fib on Eliquis, Pacemaker, COPD, CAD, DM, Dementia , breast cancer s/p radiation, CVA, GI bleed Past surgical history: CABG, Pacer placement, lumpectomy Home meds: As per MAR Allergies: Cipro, Fish Social history: Denies EtOH, drug or tobacco use. Lives in long term Family history: Non-contributory Review of Systems - Review of Systems Systems not reviewed;Unavailable: Dementia Past Patient History - Infectious Disease Hx of Infectious Diseases: None - Tetanus Immunizations Tetanus Immunization: Unknown - Past Social History Smoking Status: Former Smoker Alcohol: None Drugs: Denies Home Situation {Lives}: [facility] - CARDIAC Hx Cardiac Disorders: Yes (Afib, +pacemaker) Hx Congestive Heart Failure: Yes Hx Hypertension: Yes - PULMONARY Hx Chronic Obstructive Pulmonary Disease (COPD): Yes - NEUROLOGICAL HX Cerebrovascular Accident: Yes (L sided weakness) - HEENT Hx HEENT Problems: Yes Hx Cataracts: Yes (bilateral sx) - ENDOCRINE/METABOLIC Hx Diabetes Mellitus Type 2: Yes - HEMATOLOGICAL/ONCOLOGICAL Hx Blood Disorders: Yes Hx Cancer: Yes (left breast lumpectomy had radiation 2000) Other/Comment: l breast lumpectomy 2000 - INTEGUMENTARY Hx Dermatological Problems: Yes Other/Comment: redness under breasts, redness to left buttock - MUSCULOSKELETAL/RHEUMATOLOGICAL Hx Musculoskeletal Disorders: Yes (CARPAL TUNNEL SX) Hx Falls: Yes Hx Unsteady Gait: Yes (uses a cane) - GASTROINTESTINAL Hx Gastrointestinal Disorders: Yes (gi bleed) - GENITOURINARY/GYNECOLOGICAL Hx Genitourinary Disorders: Yes (C SECTION X 1) Hx Incontinence: Yes (urine and stool) Hx Urinary Tract Infection: Yes - PSYCHIATRIC Hx Psychophysiologic Disorder: No Hx Depression: No Hx Emotional Abuse: No Hx Physical Abuse: No Hx Substance Use: No - SURGICAL HISTORY Hx Cardiac Catheterization: Yes Hx Coronary Stent: Yes (5) Hx Open Heart Surgery: Yes Hx Orthopedic Surgery: Yes Other/Comment: ptca, 5 stents, cabg 3 stents, carpal tunnel sx - ANESTHESIA Hx Anesthesia: No Hx Anesthesia Reactions: No Hx Malignant Hyperthermia: No Meds Allergies/Adverse Reactions: Allergies Allergy/AdvReac Type Severity Reaction Status Date / Time ciprofloxacin Allergy RASH Verified 01/06/17 18:42 FISH Allergy RASH Verified 01/06/17 18:42 - Medications Medications: Current Medications Apixaban (Eliquis) 2.5 mg PO BID [facility] PRN Reason: Protocol Aspirin (Aspirin Chewable) 81 mg PO DAILY [facility] Atorvastatin Calcium (Lipitor) 20 mg PO DIN [facility] Donepezil HCl (Aricept) 5 mg PO HS [facility] Dextrose/Sodium Chloride (Dextrose 5%/0.9% Ns 1000 Ml) 1,000 mls @ 125 mls/hr IV .Q8H [facility] Insulin Human Regular 100 (units/ Sodium Chloride) 100 mls @ 4 mls/hr IV .Q24H PRN; Protocol; 4 UNITS/HR PRN Reason: TITRATE PER MD ORDER Ondansetron HCl (Zofran Inj) 4 mg IVP Q6H PRN PRN Reason: Nausea/Vomiting Risperidone (Risperdal Tab) 0.25 mg PO Q4 PRN; Protocol PRN Reason: Agitation Sodium Polystyrene Sulfonate (Kayexalate Susp) 30 gm PO Q2H [facility] Physical Exam - Constitutional Appears: No Acute Distress - Head Exam Head Exam: ATRAUMATIC, NORMAL INSPECTION, NORMOCEPHALIC - Eye Exam Eye Exam: Normal appearance, PERRL Pupil Exam: NORMAL ACCOMODATION, PERRL - ENT Exam ENT Exam: Mucous Membranes Moist - Respiratory Exam Respiratory Exam: Clear to Auscultation Bilateral, NORMAL BREATHING PATTERN. absent: Rales, Rhonchi, Wheezes - Cardiovascular Exam Cardiovascular Exam: REGULAR RHYTHM, +S1, +S2. absent: Gallop, Rubs, Systolic Murmur - GI/Abdominal Exam GI & Abdominal Exam: Normal Bowel Sounds, Soft, Tenderness (RUQ). absent: Mass , Rebound, Rigid - Extremities Exam Extremities exam: Positive for: normal inspection. Negative for: calf tenderness, pedal edema - Neurological Exam Neurological exam: Alert, CN II-XII Intact Additional comments: A&Ox 1 - Psychiatric Exam Psychiatric exam: Normal Affect, Normal Mood - Skin Skin Exam: Dry, Warm Results - Vital Signs Recent Vital Signs: Last Vital Signs Temp 97.8 F 06/13/17 18:48 Pulse 71 06/13/17 21:52 Resp 18 06/13/17 21:52 BP 157/42 H 06/13/17 21:52 Pulse Ox 100 06/13/17 21:52 - Labs Result Diagrams: 06/13/17 19:48 06/13/17 19:48 Assessment & Plan - Assessment and Plan (Free Text) Assessment: This is an 87yo female with past medical history of HTN, A.fib (on Eliquis), DM , CAD s/p CABG and pacemaker placement, Dementia, CVA, breast cancer s/p radiation who presents with hyperkalemia, acute renal failure and leukocytosis. Plan: Neuro: A&O x 1 (baseline) Continue home meds: Aricept and Risperodone prn agitation Fall precaution CV: Hx of a.fib- Continue eliquis (renal dosing) SBP on lower side- hold BP meds for now Continue ASA and Lipitor Resp: Patient comfortable on room air Maintain SpO2>90% Aspiration precaution GI: Zofran prn nausea NPO Heme: No overt signs of bleeding Continue to monitor CBC Nephro: Hyperkalemia in setting of renal failure EKG showed ventricular paced rhythm Albuterol 10mg inh Kayexylate q2h until pt has BM Insulin drip w/ D5W Will monitor daily weight and I&O Continue to monitor electrolytes and renal function Avoid nephrotoxic agents ID: Leukocytosis, afebrile Will obtain CT abd/pelvis U/A pending Will await starting empiric antibiotics until clear source Endo: Maintain euglycemia Pt on insulin drip for hyperkalemia w/ D5W Monitor finger stick q1h GI ppx: Pepcid DVT ppx: SCDs (pt also on Eliquis) Case seen, discussed, and reviewed with attending. Harrison Gold PGY2 - Date & Time Date: 06/14/17 Time: 00:34 <DipeshClaudy Q - Last Filed: 06/14/17 06:46> Meds - Medications Medications: Current Medications Apixaban (Eliquis) 2.5 mg PO BID [facility] PRN Reason: Protocol Aspirin (Aspirin Chewable) 81 mg PO DAILY [facility] Atorvastatin Calcium (Lipitor) 20 mg PO DIN [facility] Donepezil HCl (Aricept) 5 mg PO HS [facility] Dextrose/Sodium Chloride (Dextrose 5%/0.9% Ns 1000 Ml) 1,000 mls @ 125 mls/hr IV .Q8H [facility] Last Admin: 06/14/17 00:33 Dose: 125 mls/hr Insulin Human Regular 100 (units/ Sodium Chloride) 100 mls @ 4 mls/hr IV .Q24H PRN; Protocol; 4 UNITS/HR PRN Reason: TITRATE PER MD ORDER Last Admin: 06/14/17 00:35 Dose: 4 units/hr, 4 mls/hr Ceftriaxone Sodium 500 mg/ (Sodium Chloride) 50 mls @ 100 mls/hr IVPB Q24H [facility] PRN Reason: Protocol Last Admin: 06/14/17 02:37 Dose: 100 mls/hr Ondansetron HCl (Zofran Inj) 4 mg IVP Q6H PRN PRN Reason: Nausea/Vomiting Risperidone (Risperdal Tab) 0.25 mg PO Q4 PRN; Protocol PRN Reason: Agitation Sodium Polystyrene Sulfonate (Kayexalate Susp) 30 gm PO Q2H [facility] Last Admin: 06/14/17 05:18 Dose: Not Given Results - Vital Signs Recent Vital Signs: Last Vital Signs Temp 97.4 F L 06/14/17 05:21 Pulse 81 06/14/17 05:15 Resp 47 H 06/14/17 05:15 BP 100/83 06/14/17 05:00 Pulse Ox 100 06/14/17 04:40 - Labs Result Diagrams: 06/13/17 19:48 06/13/17 19:48 Labs: Laboratory Results - last 24 hr 06/14/17 06/14/17 06/14/17 02:24 03:53 05:04 POC Glucose (mg/dL) 226 H 179 H 146 H 06/14/17 06:07 POC Glucose (mg/dL) 135 H Attending/Attestation - Attestation I have personally seen and examined this patient.: Yes I have fully participated in the care of the patient.: Yes I have reviewed all pertinent clinical information: Yes Notes (Text): 06/14/17 06:43 I agree with the above mentioned exam and note by the resident with the addition of the followin87 y/o female with PMHx as listed presented from the snf for hyperkalemia found on lab work along with SONAL. Patient also found to have acute cystitis contributing to her current medical state. She was treated aggressively for hyperkalemia in the ED including Calcium gluconate, sodium bicarb, albuterol nebulizer, insulin drip and repeated doses of kayexalate. She has had multiple bowel movements overnight and is pending repeat serum chemistry this am. She has remained hemodynamically stable while in the ICU. All labs and images available thus far reviewed personally case d/w Dr. Dominguez total time of care: 40 minutes
[2017-06-14 00:37] LABS: BAND 4 % (0-2); LYMPHOCYTE 8 % (22.0-35.0); MONOCYTE 1 % (1.0-6.0); NEUTROPHIL 87 % (50.0-70.0); PLATELET ESTIMATE NORMAL (NORMAL)
[2017-06-14] MEDS ORDERED: Sod Polystyrene Sulf 15 gm/60 ml Susp PR STA (00:41)
[2017-06-14 01:02] LABS: URINE BILIRUBIN NEGATIVE (NEGATIVE); URINE BLOOD SMALL (NEGATIVE); URINE GLUCOSE (UA) NEGATIVE (NEGATIVE); URINE LEUKOCYTE ESTERASE LARGE Leu/uL (NEGATIVE); URINE NITRATE NEGATIVE (NEGATIVE); URINE PROTEIN TRACE mg/dL (<30 mg/dL); URINE UROBILINOGEN 0.2 E.U./dL (<1 E.U./dL)
[2017-06-14 01:05] LABS: URINE APPEARANCE SL CLOUDY (CLEAR); URINE COLOR YELLOW (YELLOW)
[2017-06-14 01:23] LABS: URINE BACTERIA SMALL (NEG); URINE EPITHELIAL CELLS 0 - 2 /hpf (0-5); URINE RBC 0 - 2 /hpf (0-2); URINE WBC TNTC /hpf (0-6)
[2017-06-14] MEDS: Sod Polystyrene Sulf 15 gm/60 ml Susp PO SCH ×4 (01:56→05:18)
--- NOTE | 2017-06-14 02:02 | CT ---
EXAM: CT Abdomen and Pelvis With Intravenous Contrast EXAM DATE/TIME: 06/13/2017 8:31 PM CLINICAL HISTORY: 87 years old, female; Pain; Abdominal pain; Additional info: Diffuse abdominal pain TECHNIQUE: Axial computed tomography images of the abdomen and pelvis with intravenous contrast. All CT scans at this facility use one or more dose reduction techniques, viz.: automated exposure control; ma/kV adjustment per patient size (including targeted exams where dose is matched to indication; i.e. head); or iterative reconstruction technique. Coronal and sagittal reformatted images were created and reviewed. CONTRAST: 2.4 mL of PO ONLY administered intravenously. COMPARISON: CT - ABD PELVIS W/O PO OR IV CONT 2017-01-06 15:04 FINDINGS: Lower thorax: The heart is not enlarged. There is streak artifact from pacemaker leads. There are coronary artery calcifications. There is atelectasis/scarring at the lung bases left greater than right. There is a small hiatal hernia. ABDOMEN: Liver: unremarkable Gallbladder and bile ducts: Gallbladder is distended with a small stone.Common duct is unremarkable. Pancreas: Pancreas is atrophic. Spleen: unremarkable Adrenals: There is bilateral adrenal thickening. Kidneys and ureters: There is a nonobstructing 6 mm left lower pole renal stone. Kidneys are mildly atrophic.There is no pelvocaliectasis or ureterectasis. Stomach and bowel: Stomach is partially distended with contrast and air. Rotation is normal. There is mild duodenal and proximal jejunal fold thickening. There are mildly distended small bowel loops in the left upper quadrant and left lower quadrant. There is fold prominence. There are mid small bowel loops with abnormal wall thickening. Distention and thickening decrease distally. Terminal ileum is unremarkable. Appendix is not visualized.There is no pericecal inflammation. There is moderate air and stool in the colon. There is extensive sigmoid diverticulosis. Appendix: See stomach and bowel PELVIS: Bladder: unremarkable Reproductive: There are multiple uterine calcifications. Adnexa are unremarkable. ABDOMEN and PELVIS: Intraperitoneal space: There is no free air or free fluid. Bones/joints: There are postsurgical changes of median sternotomy. There are age-indeterminate left rib fractures. Bony structures are osteopenic. There are degenerative changes. Soft tissues: There is a small fat containing umbilical hernia. 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 There are vascular calcifications. Lymph nodes: There is no pathologic adenopathy. IMPRESSION: Enteritis; extensive sigmoid diverticulosis without CT findings of diverticulitis; gallstone, no ductal dilatation nonobstructing left renal stone, ureteral stones or hydronephrosis Additional nonemergent findings as described above
[2017-06-14] MEDS: cefTRIAXone 500 MG in Sodium Chloride 0.9% 50 ML IVPB SCH (02:37)
[2017-06-14 07:18] LABS: BASO # 0.01 K/mm3 (0.0-2.0); BASO % 0.1 % (0.0-3.0); GRAN # 11.08 (1.4-6.5); GRAN % 86.1 % (50.0-68.0); LYMPH # 1.2 (1.2-3.4); MEAN CELL VOLUME 89.5 fl (80.0-105.0); MEAN CORPUSCULAR HEMOGLOBIN 28.5 pg (25.0-35.0); MEAN CORPUSCULAR HGB CONC 31.9 g/dl (31.0-37.0); MEAN PLATELET VOLUME 9.6 fl (7.0-11.0); MONO # 0.6 (0.1-0.6); MONO % 4.8 % (1.0-6.0); RBC 4.56 10^6/uL (3.5-6.1); RED CELL DISTRIBUTION WIDTH 17.3 % (11.5-14.5); WHITE BLOOD COUNT 12.9 10^3/ul (4.5-11.0)
[2017-06-14 07:49] LABS: ALBUMIN 3.3 g/dL (3.0-4.8); CALCIUM 10.3 mg/dL (8.4-10.5)
[2017-06-14] MEDS ORDERED: Dextrose 5%/0.9% NS 1,000 ML IV SCH ×2 (08:08→19:02)
--- NOTE | 2017-06-14 08:50 | RAD ---
HISTORY: r/o infiltrate COMPARISON: 01/06/2017 FINDINGS: LUNGS: No active pulmonary disease. PLEURA: No significant pleural effusion identified, no pneumothorax apparent. CARDIOVASCULAR: Cardiomegaly. No evidence of acute, significant cardiovascular disease. Position/ configuration of pacemaker Satisfactory.Incidental finding(s): Incidental Finding(s): Postoperative changes related to sternotomy. OSSEOUS STRUCTURES: No significant abnormalities. VISUALIZED UPPER ABDOMEN: Normal. OTHER FINDINGS: None. IMPRESSION: No active pulmonary disease.
[2017-06-14] MEDS ORDERED: Sodium Chloride 0.9% 1,000 ML IV STA (09:35)
[2017-06-14] MEDS ORDERED: Sod Polystyrene Sulf 15 gm/60 ml Susp PO ONE (10:43)
[2017-06-14] MEDS ORDERED: Dextrose 50% SYRINGE Inj (50 ml) IVP ONE (10:43)
[2017-06-14] MEDS ORDERED: Insulin Regular 1 UNITS/0.01 ML ML IVP ONE (10:45)
[2017-06-14] MEDS ORDERED: DOPamine 400mg/250ml D5W 400 MG/250 ML BAG IV PRN (10:58)
[2017-06-14 11:46] LABS: CALCIUM 9.4 mg/dL (8.4-10.5)
--- NOTE | 2017-06-14 12:19 | CARD ---
APPROVED REPORT EKG Measurement Heart [id number] <Conclusion> Demand pacemaker, interpretation is based on intrinsic rhythm Likely A Fib. Left axis deviation Incomplete right bundle branch block Minimal voltage criteria for LVH, may be normal variant Inferior infarct, age undetermined ST & Marked T wave abnormality, consider anterolateral ischemia Prolonged QT Consider pacemaker analysis Abnormal ECG
--- NOTE | 2017-06-14 12:28 | CARD ---
APPROVED REPORT EKG Measurement Heart [id number] <Conclusion> Atrial sensed, ventricular paced rhythm
--- NOTE | 2017-06-14 12:33 | CP.PCM.PN ---
Subjective - Date & Time of Evaluation Date of Evaluation: 06/14/17 Time of Evaluation: 10:00 - Subjective Subjective: Patient seen and examined, reports no major complaints. HR 35-55, with pauses, cardiology consulted, Dr Medrano at bedside, patient given Kayex 30g x 1, Insulin, D50, Calcium gluconate, placed on Dopamine 5mcg/kg/min. HR improved to 50-60s. Pending PPM interrogation. Objective - Vital Signs/Intake and Output Vital Signs (last 24 hours): Temp Pulse Resp BP Pulse Ox 97.4 F L 81 47 H 100/83 100 06/14/17 05:21 06/14/17 05:15 06/14/17 05:15 06/14/17 05:00 06/14/17 04:40 Intake and Output: 06/14/17 06/14/17 06:59 18:59 Intake Total 600 Output Total 450 Balance 150 - Medications Medications: Current Medications Apixaban (Eliquis) 2.5 mg PO BID [facility] PRN Reason: Protocol Last Admin: 06/14/17 10:19 Dose: 2.5 mg Aspirin (Aspirin Chewable) 81 mg PO DAILY [facility] Last Admin: 06/14/17 10:19 Dose: 81 mg Atorvastatin Calcium (Lipitor) 20 mg PO DIN [facility] Donepezil HCl (Aricept) 5 mg PO HS [facility] Ceftriaxone Sodium 500 mg/ (Sodium Chloride) 50 mls @ 100 mls/hr IVPB Q24H [facility] PRN Reason: Protocol Last Admin: 06/14/17 02:37 Dose: 100 mls/hr Dextrose/Sodium Chloride (Dextrose 5%/0.9% Ns 1000 Ml) 1,000 mls @ 100 mls/hr IV .Q10H [facility] Last Admin: 06/14/17 08:29 Dose: 100 mls/hr Dopamine HCl/Dextrose (Dopamine 400mg/250ml D5w) 400 mg in 250 mls @ 13.608 mls /hr IV .[id number] PRN; Protocol; 5 MCG/KG/MIN PRN Reason: TITRATE PER MD ORDER Ondansetron HCl (Zofran Inj) 4 mg IVP Q6H PRN PRN Reason: Nausea/Vomiting Risperidone (Risperdal Tab) 0.25 mg PO Q4 PRN; Protocol PRN Reason: Agitation Sodium Polystyrene Sulfonate (Kayexalate Susp) 30 gm PO Q2H [facility] Last Admin: 06/14/17 05:18 Dose: Not Given - Labs Labs: 06/14/17 06:00 06/14/17 11:20 PT 21.3 SECONDS (9.4-12.5) H 06/13/17 19:48 INR 1.85 (0.93-1.08) H 06/13/17 19:48 APTT 32.1 Seconds (25.1-36.5) 06/13/17 19:48 - Constitutional Appears: No Acute Distress - Eye Exam Eye Exam: Normal appearance - ENT Exam ENT Exam: Mucous Membranes Moist - Respiratory Exam Respiratory Exam: Clear to Ausculation Bilateral, NORMAL BREATHING PATTERN - Cardiovascular Exam Cardiovascular Exam: Bradycardia, Irregular Rhythm, +S1, +S2 - GI/Abdominal Exam GI & Abdominal Exam: Soft, Normal Bowel Sounds - Extremities Exam Extremities Exam: Full ROM, Normal Inspection Assessment and Plan - Assessment and Plan (Free Text) Assessment: 87yo female with PMHx HTN, A.fib (on Eliquis), DM, CAD s/p CABG and pacemaker placement, Dementia, CVA, breast cancer s/p radiation admitted for hyperkalemia. Hyperkalemia, resolved 4.6 Cystitis CAD Dementia Hx of CVA - currently afebrile, HD stable, SBP 120-130s, HR 55-65, on Dopamine drip, rhythm with multiple pauses, failure to capture by PPM - cardiology at bedside Dr Medrano, consult appreciated - repeat K+ 4.6 - PPM interrogation pending Recommend: - supp o2 as needed - Antibiotics for UTI - IVF hydration - Dopamine drip - Atropine at bedside - Q6hr BMP, last potassium 4.6 - PPM interrogation - Follow up cardiology - Folow up cultures - Eliquis - GI ppx - DVT ppx - Monitor in MICU
--- NOTE | 2017-06-14 18:13 | CP.PCM.CON ---
History of Present Illness - History of Present Illness History of Present Illness: Seen and examined at the bedside earlier today, chart reviewed. Request for GI consult is for enteritis. HPI: This is an 87-year-old female with a past medical history of diabetes mellitus, coronary artery disease status post CABG and pacemaker placement, CVA , breast cancer status post radiation and atrial fibrillation on Linette Maria Eugenia was brought to the emergency room from the group home for abnormal labs, the patient found to have elevated potassium. The patient apparently had been given Kayexalate and reported to have 2 large volume BMs, no reports of melena or bleeding per rectum. The patient was reported to have been agitated last night, medications given and patient is currently arousable but lethargic limited history obtained. The patient does not to having pain to the right quadrant as per nursing staff no reports of nausea, vomiting, or overt GI bleed. On admission the patient had a CT scan of abdomen and pelvis with only oral contrast and found to have enteritis with extensive sigmoid diverticulosis with no evidence of diverticulitis. There was a moderate amount of air and stool in the colon. Full report can be reviewed on [facility]. Patient w/ episodes of bradycardia, [employer] rep at bedside for evaluation of pacemaker. Past medical history: Atrial fibrillation on Linette Maria Eugenia, hypertension, pacemaker , COPD, coronary artery disease, dementia, breast cancer that is post radiation , CVA, GI bleed, dementia Past surgical history: CABG, lumpectomy, pacemaker placement Allergies: Cipro, Fish Family history: Noncontributory Social history: No history of drugs, EtOH or tobacco use Medications: Reviewed as per TK ROS: Limited review with patient as patient is lethargic, see HPI. Past Patient History - Infectious Disease Hx of Infectious Diseases: None - Tetanus Immunizations Tetanus Immunization: Unknown - Past Social History Smoking Status: Former Smoker - CARDIAC Hx Cardiac Disorders: Yes (Afib, +pacemaker) Hx Congestive Heart Failure: Yes Hx Hypertension: Yes - PULMONARY Hx Chronic Obstructive Pulmonary Disease (COPD): Yes - NEUROLOGICAL HX Cerebrovascular Accident: Yes (L sided weakness) - HEENT Hx HEENT Problems: Yes Hx Cataracts: Yes (bilateral sx) - ENDOCRINE/METABOLIC Hx Diabetes Mellitus Type 2: Yes - HEMATOLOGICAL/ONCOLOGICAL Hx Blood Disorders: Yes Hx Cancer: Yes (left breast lumpectomy had radiation 2000) Other/Comment: l breast lumpectomy 2000 - INTEGUMENTARY Hx Dermatological Problems: Yes Other/Comment: redness under breasts, redness to left buttock - MUSCULOSKELETAL/RHEUMATOLOGICAL Hx Musculoskeletal Disorders: Yes (CARPAL TUNNEL SX) Hx Falls: Yes Hx Unsteady Gait: Yes (uses a cane) - GASTROINTESTINAL Hx Gastrointestinal Disorders: Yes (gi bleed) - GENITOURINARY/GYNECOLOGICAL Hx Genitourinary Disorders: Yes (C SECTION X 1) Hx Incontinence: Yes (urine and stool) Hx Urinary Tract Infection: Yes - PSYCHIATRIC Hx Psychophysiologic Disorder: No Hx Depression: No Hx Emotional Abuse: No Hx Physical Abuse: No - SURGICAL HISTORY Hx Cardiac Catheterization: Yes Hx Coronary Stent: Yes (5) Hx Open Heart Surgery: Yes Hx Orthopedic Surgery: Yes Other/Comment: ptca, 5 stents, cabg 3 stents, carpal tunnel sx - ANESTHESIA Hx Anesthesia: No Hx Anesthesia Reactions: No Hx Malignant Hyperthermia: No Meds Allergies/Adverse Reactions: Allergies Allergy/AdvReac Type Severity Reaction Status Date / Time ciprofloxacin Allergy RASH Verified 01/06/17 18:42 FISH Allergy RASH Verified 01/06/17 18:42 - Medications Medications: Current Medications Apixaban (Eliquis) 2.5 mg PO BID BHAVIK PRN Reason: Protocol Last Admin: 06/14/17 10:19 Dose: 2.5 mg Aspirin (Aspirin Chewable) 81 mg PO DAILY BHAVIK Last Admin: 06/14/17 10:19 Dose: 81 mg Atorvastatin Calcium (Lipitor) 20 mg PO DIN BHAVIK Donepezil HCl (Aricept) 5 mg PO HS BHAVIK Ceftriaxone Sodium 500 mg/ (Sodium Chloride) 50 mls @ 100 mls/hr IVPB Q24H BHAVIK PRN Reason: Protocol Last Admin: 06/14/17 02:37 Dose: 100 mls/hr Dextrose/Sodium Chloride (Dextrose 5%/0.9% Ns 1000 Ml) 1,000 mls @ 100 mls/hr IV .Q10H BHAVIK Last Admin: 06/14/17 08:29 Dose: 100 mls/hr Dopamine HCl/Dextrose (Dopamine 400mg/250ml D5w) 400 mg in 250 mls @ 13.608 mls /hr IV .[id number] PRN; Protocol; 5 MCG/KG/MIN PRN Reason: TITRATE PER MD ORDER Ondansetron HCl (Zofran Inj) 4 mg IVP Q6H PRN PRN Reason: Nausea/Vomiting Risperidone (Risperdal Tab) 0.25 mg PO Q4 PRN; Protocol PRN Reason: Agitation Sodium Polystyrene Sulfonate (Kayexalate Susp) 30 gm PO Q2H BHAVIK Last Admin: 06/14/17 05:18 Dose: Not Given Physical Exam - Constitutional Appears: No Acute Distress - Head Exam Head Exam: NORMOCEPHALIC - Eye Exam Eye Exam: Normal appearance. absent: Scleral icterus - ENT Exam ENT Exam: Mucous Membranes Moist - Neck Exam Neck exam: Positive for: Normal Inspection - Respiratory Exam Respiratory Exam: NORMAL BREATHING PATTERN (he). absent: Respiratory Distress - Cardiovascular Exam Cardiovascular Exam: +S1, +S2 (he wanted a rise) - GI/Abdominal Exam GI & Abdominal Exam: Hypoactive Bowel Sounds, Soft, Tenderness (right quadrant) . absent: Guarding, Rebound - Extremities Exam Extremities exam: Positive for: pedal pulses present. Negative for: calf tenderness - Neurological Exam Neurological exam: Altered (lethargic but arousable), Oriented x3 (history of dementia) - Skin Skin Exam: Dry, Warm Results - Vital Signs Recent Vital Signs: Last Vital Signs Temp 97.4 F L 06/14/17 05:21 Pulse 60 06/14/17 17:50 Resp 11 L 06/14/17 17:50 BP 138/51 L 06/14/17 17:00 Pulse Ox 99 06/14/17 17:50 - Labs Result Diagrams: 06/14/17 06:00 06/14/17 11:20 Labs: Laboratory Results - last 24 hr 06/14/17 06/14/17 06/14/17 02:24 03:53 05:04 WBC RBC Hgb Hct MCV MCH MCHC RDW Plt Count MPV Gran % Lymph % (Auto) [place] % (Auto) Eos % (Auto) Baso % (Auto) Gran # Lymph # [place] # Eos # Baso # Sodium Potassium Chloride Carbon Dioxide Anion Gap BUN Creatinine Est GFR ( Amer) Est GFR (Non-Af Amer) POC Glucose (mg/dL) 226 H 179 H 146 H Random Glucose Calcium Total Bilirubin AST ALT Alkaline Phosphatase Total Protein Albumin Globulin Albumin/Globulin Ratio 06/14/17 06/14/17 06/14/17 06:00 06:00 06:07 WBC 12.9 H RBC 4.56 Hgb 13.0 D Hct 40.8 MCV 89.5 MCH 28.5 MCHC 31.9 RDW 17.3 H Plt Count 217 MPV 9.6 Gran % 86.1 H Lymph % (Auto) 9.0 L [place] % (Auto) 4.8 Eos % (Auto) 0.0 L Baso % (Auto) 0.1 Gran # 11.08 H Lymph # 1.2 [place] # 0.6 Eos # 0.0 Baso # 0.01 Sodium 143 Potassium 5.9 H* D Chloride 109 H Carbon Dioxide 21 Anion Gap 20 BUN 36 H Creatinine 2.4 H Est GFR ( Amer) 23 Est GFR (Non-Af Amer) 19 POC Glucose (mg/dL) 135 H Random Glucose 122 H Calcium 10.3 Total Bilirubin 0.4 AST 31 ALT 27 Alkaline Phosphatase 43 Total Protein 6.6 Albumin 3.3 Globulin 3.3 Albumin/Globulin Ratio 1.0 L 06/14/17 06/14/17 06/14/17 07:02 08:47 11:20 WBC RBC Hgb Hct MCV MCH MCHC RDW Plt Count MPV Gran % Lymph % (Auto) [place] % (Auto) Eos % (Auto) Baso % (Auto) Gran # Lymph # [place] # Eos # Baso # Sodium 143 Potassium 4.6 Chloride 113 H Carbon Dioxide 19 L Anion Gap 16 BUN 33 H Creatinine 2.3 H Est GFR ( Amer) 24 Est GFR (Non-Af Amer) 20 POC Glucose (mg/dL) 129 H 115 H Random Glucose 215 H Calcium 9.4 Total Bilirubin AST ALT Alkaline Phosphatase Total Protein Albumin Globulin Albumin/Globulin Ratio 06/14/17 06/14/17 13:19 16:14 WBC RBC Hgb Hct MCV MCH MCHC RDW Plt Count MPV Gran % Lymph % (Auto) [place] % (Auto) Eos % (Auto) Baso % (Auto) Gran # Lymph # [place] # Eos # Baso # Sodium Potassium Chloride Carbon Dioxide Anion Gap BUN Creatinine Est GFR ( Amer) Est GFR (Non-Af Amer) POC Glucose (mg/dL) 107 128 H Random Glucose Calcium Total Bilirubin AST ALT Alkaline Phosphatase Total Protein Albumin Globulin Albumin/Globulin Ratio Assessment & Plan - Assessment and Plan (Free Text) Assessment: Assessment: Hyperkalemia Acute renal failure Leukocytosis Enteritis Bradycardia Dementia History of atrial fibrillation History of coronary artery disease status post CABG Plan: Nothing by mouth, continue IV F On IV antibiotics Continue PPI DVT prophylaxis On Eliquis Monitor electrolytes As per ICU team Thank you for this consult and for allowing us to participate in your patient's care, further recommendations based upon clinical course. Seen and discussed w/ Dr. Escobar.
[2017-06-14] MEDS: metroNIDAZOLE IV 500 mg/100 ml 500 MG/100 ML BAG IVPB SCH (21:33)
--- NOTE | 2017-06-14 23:06 | CON ---
DATE: 06/14/2017 REQUESTING PHYSICIAN: Dr. Peralta. REASON FOR CONSULTATION: Possible pacemaker malfunction. HISTORY OF PRESENT ILLNESS: This is an 87-year-old woman known to us with a history of coronary artery disease, status post prior bypass surgery and permanent pacemaker implant as well as paroxysmal atrial fibrillation who has been living in the long term for the past several months. She was brought to the emergency room after recent routine blood work noted the potassium to be greater than 7 and a creatinine of 2.5. In the CCU, she was noted to have evidence of failure to pace and heart rate in the 20s intermittently. Her potassium was initially 8.0 and repeat was 5.9. She was treated with insulin, glucose, and beta agonist as well as Kayexalate. She has had several large bowel movements. Repeat potassium is pending. She was seen lying in bed in the CCU. She answered some questions very briefly. She does have a history of dementia. She was seen in the presence of her daughter who provided further information. PAST MEDICAL HISTORY: Notable for the problems as mentioned above. She does have chronic atrial fibrillation and has been maintained on Eliquis. She does have a history of prior breast cancer with radiation therapy, cerebrovascular accident, GI bleeding, COPD, coronary artery disease for which she has undergone bypass surgery in the past, and she has had prior lumpectomy. MEDICATIONS: Her medications in long term had included potassium supplement in addition to Lasix and losartan. Her current medications include Aricept, aspirin, Rocephin, IV dopamine, Eliquis 2.5 mg b.i.d., Kayexalate, Lipitor, Risperdal. ALLERGIES: SHE HAS HAD REACTIONS TO CIPROFLOXACIN IN THE PAST. SOCIAL HISTORY: As mentioned, she lives in the long term. She does not smoke or drink. Her activities are extremely limited. FAMILY HISTORY: Both parents are from age-related illness. REVIEW OF SYSTEMS: A 10-point review of systems is directly unobtainable; however, daughter states she has no other major issues. PHYSICAL EXAMINATION: GENERAL: She is a chronically ill-appearing elderly woman. VITAL SIGNS: Her blood pressure is 100/82 with a pulse of 80 and sinus, respirations are 16. She is afebrile. HEENT: No JVD. CHEST: Bilateral scattered rhonchi. HEART: PMI displaced laterally with systolic murmur at the lower left sternal border. ABDOMEN: Soft and nontender. Normoactive bowel sounds. EXTREMITIES: No edema. SKIN: Warm and dry. PSYCHIATRIC: Flat affect and somewhat somnolent. NEUROLOGIC: Unable to fully asses, but moving all four extremities. DIAGNOSTIC DATA: Potassium is 5.9, BUN and creatinine are 36 and 2.4. White count 12.9, hemoglobin and hematocrit are 13.7 and 40.8 with platelet count of 217,000. Chest x-ray reveals mildly enlarged cardiac silhouette with post sternotomy changes, dual-chamber pacemaker system is in place and lead position appears appropriate. Electrocardiogram reveals an atrial sensed ventricular paced rhythm. Followup electrocardiogram reveals intermittent failure to stents. IMPRESSION: 1. Pacemaker dysfunction likely secondary to recent hyperkalemia, doubt intrinsic pacemaker dysfunction. The pacemaker was last checked in 08/2016, at which time no abnormalities were noted and battery life was three and a half years. 2. Hyperkalemia. Possibly due to worsened renal insufficiency and continued potassium use as well as angiotensin receptor susanne use. 3. [id number] renal insufficiency. 4. Baseline dementia. 5. Coronary artery disease, status post prior bypass surgery. 6. Paroxysmal atrial fibrillation. RECOMMENDATIONS: At this time, repeat BMP is pending. Maintenance of potassium below 5.0 is advised. Pacemaker interrogation will be arranged. ARB and potassium supplement obviously withheld at this time. Further recommendations will be made based upon the clinical course and the results of the above evaluation. Thank you for this consultation. Raciel Carbone MD
[2017-06-14 23:59] LABS: BASO # 0.01 K/mm3 (0.0-2.0); BASO % 0.1 % (0.0-3.0); EOS % 0.1 % (1.5-5.0); GRAN # 11.87 (1.4-6.5); GRAN % 82.2 % (50.0-68.0); HEMOGLOBIN 12.1 g/dL (12.0-16.0); LYMPH # 1.6 (1.2-3.4); MEAN CELL VOLUME 90.5 fl (80.0-105.0); MEAN CORPUSCULAR HEMOGLOBIN 28.8 pg (25.0-35.0); MEAN CORPUSCULAR HGB CONC 31.8 g/dl (31.0-37.0); MEAN PLATELET VOLUME 9.4 fl (7.0-11.0); MONO % 6.6 % (1.0-6.0); RBC 4.2 10^6/uL (3.5-6.1); WHITE BLOOD COUNT 14.4 10^3/ul (4.5-11.0)
[2017-06-15 00:40] LABS: CALCIUM 9.7 mg/dL (8.4-10.5); MAGNESIUM 1.5 mg/dL (1.7-2.2)
[2017-06-15] MEDS ORDERED: Magnesium Sulfate 2 GM in Sodium Chloride 0.9% 100 ML IVPB ONE (01:15)
[2017-06-15 01:34] LABS: TROPONIN I 0.19 ng/mL
[2017-06-15] MEDS: metroNIDAZOLE IV 500 mg/100 ml 500 MG/100 ML BAG IVPB SCH ×2 (05:04→14:51)
[2017-06-15 05:36] VITALS: RESP 53; O2SAT 94
--- NOTE | 2017-06-15 07:17 | CON ---
DATE: 06/14/2017 REASON FOR CONSULTATION: Abdominal pain. HISTORY OF PRESENT ILLNESS: This 87-year-old patient with a past medical history of diabetes mellitus, coronary artery disease, status post CABG, pacemaker placement, dementia, CVA, history of breast cancer, was presented to the emergency room with hyperkalemia. Her daughter noticed that mother was not ''appear normal." The patient has been treated for the hyperkalemia, felt comfortable. No vomiting blood. No melena or bright red blood per rectum. Other past medical history is significant as above, history of AFib, on Eliquis. The patient feels slightly better now, abdominal pain has since the admission decreased. She had a CT done on admission, found to have some prominent loops in the proximal small bowel with some thickening, suggestive of possible enteritis. The patient has been on only ceftriaxone. PAST MEDICAL HISTORY: Other past medical history is significant as above. The patient has been on Eliquis for AFib. PAST SURGICAL HISTORY: CABG and permanent pacemaker placement. ALLERGIES: CIPRO AND FISH. SOCIAL HISTORY: Denies smoking. Denies alcohol use. REVIEW OF SYSTEMS: Positive as above. Other systems reviewed. PHYSICAL EXAMINATION: GENERAL: The patient is lying on the bed, not in acute distress. VITAL SIGNS: Temperature is afebrile now, blood pressure is 117/56, pulse 58, and respirations 13. HEENT: Atraumatic, anicteric. NECK: Supple. HEART: S1 and S2 heard. LUNGS: Bilateral air entry present. ABDOMEN: Soft. There is no significant tenderness. EXTREMITIES: No cyanosis. No clubbing. LABORATORY DATA: Hemoglobin 13, hematocrit 40.8, WBC is 12.9, and platelets 217. Chemistry: BUN 33 and creatinine 2.3. IMPRESSION: This 87-year-old patient admitted with hyperkalemia, feeling weak, the CAT scan showed some thickening of the small bowel loops suggestive of enteritis, clinically improving. The patient's CAT scan shows significant vascular calcification, atherosclerotic disease. She has been on Eliquis at home, history of atrial fibrillation, also has history of chronic constipation, on MiraLax at home. RECOMMENDATIONS: We will add the Flagyl. One of the likely cause for abdominal pain should include low-flow state ischemia, but less likely ischemia. The patient is already on Eliquis. The differential diagnosis for the enteritis would include low-flow state ischemia versus infectious. The patient has been on ceftriaxone, we will add Flagyl. We will start her on a clear liquid diet. We will continue to closely followup her care and suggest further management based on the clinical course. Rick Escobar MD
--- NOTE | 2017-06-15 08:01 | PN ---
DATE: 06/15/2017 SUBJECTIVE: The patient has no complaints of any chest pain. No shortness of breath. She has no headaches or dizziness. PHYSICAL EXAMINATION: VITAL SIGNS: Temperature is 98, pulse of 81, blood pressure 116/76, and respirations 16. GENERAL: The patient is lying in bed, flat, comfortable. HEENT: No oral lesion. Anicteric sclerae. Moist mucosa. NECK: No JVD, adenopathy, or thyromegaly. CARDIOVASCULAR: S1 and S2, regular. No murmurs, rubs, or gallops. LUNGS: Clear to auscultation bilaterally. No wheeze, rales, or rhonchi. ABDOMEN: Bowel sounds are positive, soft, nontender and nondistended. EXTREMITIES: No cyanosis, clubbing or edema. LABORATORY DATA: Potassium is 4.1. ASSESSMENT: 1. Hyperkalemia improved. 2. Acute kidney injury. 3. Enteritis. 4. Atrial fibrillation. 5. Pacemaker, possible malfunction. 6. Chronic obstructive pulmonary disease. 7. Coronary artery disease. 8. Dementia. PLAN: The patient did have a mild troponin elevation. The patient has a magnesium that is low, this has been replaced. Last night, the patient is on risperidone. She is going to continue on Lipitor for dyslipidemia. She is being followed by Cardiology and by GI, I appreciate their input. I did speak to the patient's daughter yesterday to give an update on the patient's diagnoses and plan of care. She remains critically ill in the ICU because of her arrhythmia. The patient's creatinine remains elevated. Jose Peralta MD
--- NOTE | 2017-06-15 08:15 | HP ---
HISTORY OF PRESENT ILLNESS: This is an 87-year-old female who is coming into the hospital. She was sent from [facility] which is a long-term care facility for evaluation. The patient was found to have potassium that was quickly high at 7. The patient was also found to have a quickly high potassium in the ER. The patient was admitted to the ICU. She was given cocktail of medications to help decrease her potassium. The patient has underlying confusion and so it is difficult to get a full history. She denies any headache. She has a history of diabetes, coronary artery disease with CABG. She has a pacemaker. It was difficult to interpret EKG because of the paced rhythm, and the patient has a history of breast cancer and had radiations and atrial fibrillation. The patient's repeat potassium has improved. REVIEW OF SYMPTOMS: Limited. ALLERGIES: CIPRO AND FISH. HOME MEDICATIONS: Reviewed. She was taking Lasix and potassium. PAST MEDICAL HISTORY: As above. She also has dementia. FAMILY HISTORY: Noncontributory. SOCIAL HISTORY: No history of drugs, alcohol, or tobacco use. PHYSICAL EXAMINATION: VITAL SIGNS: The patient's temperature is 97.4; pulse is 63, it goes down to 40s at times; blood pressure 117/56; O2 saturations 99%; height is 5 feet; weight is 160 pounds; BMI is 31.2. GENERAL: The patient lying in bed, uncomfortable, and in no acute distress. HEENT: Atraumatic and normocephalic. Anicteric sclerae. Moist mucosa. Morley conjunctivae. No oral lesions. NECK: No JVD, anterior and posterior adenopathy, thyromegaly, or bruits. CARDIOVASCULAR: S1 and S2 regular. No murmur, rubs, or gallop. LUNGS: Clear to auscultation bilaterally. No wheezes, rales, or rhonchi. ABDOMEN: Bowel sounds are positive. Soft, nontender and nondistended. No hepatosplenomegaly. No rebound and no guarding EXTREMITIES: No cyanosis, clubbing, or edema. NEUROLOGIC: No facial asymmetry. Tongue is midline. No uvula deviation. Power is 5/5 upper extremity and lower extremity. Sensation intact in upper extremity and lower extremity. PSYCHIATRIC: The patient is alert, awake, and oriented x1. No hallucinations. No suicidal or homicidal ideation. GENITOURINARY: No CVA tenderness. VASCULAR: 2+ pulses in the carotid pulses and pedal pulses. SKIN: No erythema or nodules. SPINE: Shows normal curvature. LABORATORY DATA: White count is 12.0, hemoglobin is 16, platelet count is 226. Granulocytes 92%. INR is 1.8. The patient had an initial potassium level that was 8.0, repeat was 5.9, repeat again was 4.6. Labs have been reviewed. The patient's creatinine is 2.5. Urine shows blood that is small, nitrites are negative, bilirubin is negative. EKG shows atrial sensed rhythm at 71. Chest x-ray done showed no active disease. Abdominal CT showed enteritis with extensive sigmoid diverticulosis. ASSESSMENT: 1. Hyperkalemia. 2. Dementia of Alzheimer's type. 3. Acute kidney injury. 4. Atrial fibrillation, on Eliquis. 5. Diabetes type 2. 6. Coronary artery disease, status post coronary artery bypass graft. 7. Pacemaker. 8. History of breast cancer with radiation. 9. Nephrolithiasis in the left kidney with a 6-mm nonobstructing stone. PLAN: The patient is admitted to the hospital. She has improved. She was critically ill initially on admission. The patient is on Aricept for her dementia. She will continue taking aspirin. She is on IV fluids with D5 normal saline. The patient's potassium has improved significantly. The patient's creatinine remains elevated. I think the patient does have underlying chronic kidney disease because of the changes in the parenchyma that is seen on CAT scan. The patient is on Eliquis for atrial fibrillation. She is on a lower dose of 2.5 mg b.i.d. The patient had been on insulin drip along with D5 and with bolus of D50 to prevent hypoglycemia, which will help withdrawal the potassium intracellularly. The patient was also given multiple doses of Kayexalate. She also was found to have constipation and enteritis. I am not sure if this is clinically relevant. She will need evaluation by GI. I have also asked Dr. Chaves to see the patient for her cardiac arrhythmia that was seen on the monitoring. I am not sure if the pacemaker is working. I will continue her IV fluids. I did speak to the patient's daughter Sabine to give an update, her number is [phone]. I also reviewed the patient's medical records from the long-term care facility. Jose Peralta MD
[2017-06-15 08:17] LABS: BASO # 0.01 K/mm3 (0.0-2.0); BASO % 0.1 % (0.0-3.0); EOS % 0.1 % (1.5-5.0); GRAN # 13.24 (1.4-6.5); GRAN % 86.5 % (50.0-68.0); HEMOGLOBIN 12.7 g/dL (12.0-16.0); LYMPH # 1.2 (1.2-3.4); LYMPH % 7.7 % (22.0-35.0); MEAN CELL VOLUME 89.7 fl (80.0-105.0); MEAN CORPUSCULAR HEMOGLOBIN 28.9 pg (25.0-35.0); MEAN CORPUSCULAR HGB CONC 32.2 g/dl (31.0-37.0); MEAN PLATELET VOLUME 9.3 fl (7.0-11.0); MONO # 0.9 (0.1-0.6); MONO % 5.6 % (1.0-6.0); RBC 4.39 10^6/uL (3.5-6.1); RED CELL DISTRIBUTION WIDTH 17.4 % (11.5-14.5); WHITE BLOOD COUNT 15.3 10^3/ul (4.5-11.0)
[2017-06-15 08:30] LABS: ALBUMIN 3.1 g/dL (3.0-4.8); CALCIUM 9.6 mg/dL (8.4-10.5); MAGNESIUM 2.1 mg/dL (1.7-2.2)
[2017-06-15] MEDS: cefTRIAXone 500 MG in Sodium Chloride 0.9% 50 ML IVPB SCH (10:00)
--- NOTE | 2017-06-15 11:24 | CP.CCUPN ---
<Robson Jameson - Last Filed: 06/15/17 13:29> CCU Subjective - Physician Review Subjective (Free Text): Critical Care Progress note Patient seen and examined at bedside this AM. Yesterday pacemaker was adjusted to 6J and would capture > 90%. During that time HR did not go below 50. Overnight patient pacemaker did not capture for a brief period of time. Patient was then restarted on dopamine and regained capture. Patient is still on dopamine with current heart rate in the 70s. Patient resting comfortably and conversing, talking in full sentences. Denies current: fevers, chills, nausea, vomiting, headaches, dizziness, heart palpitations. Dr. Chaves at bedside CCU Objective - Vital Signs / Intake & Output Intake and Output (Last 8hrs): Intake & Output 06/14/17 06/15/17 06/15/17 22:59 06:59 14:59 Intake Total 2250 Output Total 250 Balance 2000 Weight 152 lb Intake: IV 2250 Left Forearm 2250 Output: Urine 250 2-way Urethral 250 Other: # Bowel Movements 2 - Physical Exam Head: Positive for: Atraumatic, Normocephalic Pupils: Positive for: PERRL Extroacular Muscles: Positive for: EOMI Conjunctiva: Positive for: Normal Mouth: Positive for: Moist Mucous Membranes Neck: Positive for: Normal Range of Motion Respiratory/Chest: Positive for: Clear to Auscultation, Good Air Exchange. Negative for: Respiratory Distress, Accessory Muscle Use Cardiovascular: Positive for: Regular Rate and Rhythm, Normal S1, S2, Other ( capture w/ every beat). Negative for: Murmurs Abdomen: Positive for: Tenderness (mild tenderness to palpation), Normal Bowel Sounds. Negative for: Distention, Peritoneal Signs Back: Positive for: Normal Inspection Upper Extremity: Positive for: Normal Inspection. Negative for: Cyanosis, Edema Lower Extremity: Positive for: Normal Inspection. Negative for: Edema Neurological: Positive for: GCS=15, CN II-XII Intact, Speech Normal Skin: Positive for: Warm, Dry, Normal Color. Negative for: Rashes Psychiatric: Positive for: Alert, Oriented x 3, Normal Insight, Normal Concentration - Medications Active Medications: Active Medications Generic Name Dose Route Start Last Admin Trade Name Freq PRN Reason Stop Dose Admin Apixaban 2.5 mg 06/14/17 10:00 06/14/17 18:12 Eliquis PO 2.5 mg BID BHAVIK Administration Protocol Aspirin 81 mg 06/14/17 10:00 06/14/17 10:19 Aspirin Chewable PO 81 mg DAILY BHAVIK Administration Atorvastatin Calcium 20 mg 06/14/17 17:00 06/14/17 18:12 Lipitor PO 20 mg DIN BHAVIK Administration Donepezil HCl 5 mg 06/14/17 22:00 06/14/17 21:32 Aricept PO 5 mg HS BHAVIK Administration Ceftriaxone Sodium 500 mg/ 50 mls @ 100 mls/hr 06/14/17 01:15 06/14/17 02:37 Sodium Chloride IVPB 100 mls/hr Q24H BHAVIK Administration Protocol Dopamine HCl/Dextrose 400 mg in 250 mls @ 13.608 mls/hr 06/14/17 10:58 18:10 Dopamine 400mg/250ml D5w IV 5 mcg/kg/min .[id number] PRN 13.608 mls/hr TITRATE PER MD ORDER Administration Protocol 5 MCG/KG/MIN Metronidazole 500 mg in 100 mls @ 100 mls/hr 06/14/17 22:00 06/15/17 05:04 Flagyl IVPB 100 mls/hr Q8 BHAVIK Administration Protocol Ondansetron HCl 4 mg 06/13/17 22:56 Zofran Inj IVP Q6H PRN Nausea/Vomiting Pantoprazole Sodium 40 mg 06/15/17 10:00 Protonix Inj IVP DAILY BHAVIK Risperidone 0.25 mg 06/13/17 23:42 06/14/17 21:34 Risperdal Tab PO 0.25 mg Q4 PRN Administration Agitation Protocol Sodium Polystyrene Sulfonate 30 gm 06/13/17 23:00 06/14/17 05:18 Kayexalate Susp PO Not Given Q2H BHAVIK - Patient Studies Lab Studies: Lab Studies 06/15/17 06/15/17 06/15/17 Range/Units 07:46 05:00 05:00 WBC (4.5-11.0) 10^3/ul RBC (3.5-6.1) 10^6/uL Hgb (12.0-16.0) g/dL Hct (36.0-48.0) % MCV (80.0-105.0) fl MCH (25.0-35.0) pg MCHC (31.0-37.0) g/dl RDW (11.5-14.5) % Plt Count (120.0-450.0) 10^3/uL MPV (7.0-11.0) fl Gran % (50.0-68.0) % Lymph % (Auto) (22.0-35.0) % Pepin % (Auto) (1.0-6.0) % Eos % (Auto) (1.5-5.0) % Baso % (Auto) (0.0-3.0) % Gran # (1.4-6.5) Lymph # (1.2-3.4) Pepin # (0.1-0.6) Eos # (0.0-0.7) Baso # (0.0-2.0) K/mm3 Sodium 142 (132-148) mmol/L Potassium 4.1 (3.6-5.0) mmol/L Chloride 113 H (98-107) mmol/L Carbon Dioxide 21 (21-33) mmol/L Anion Gap 13 (10-20) BUN 24 H (7-21) mg/dL Creatinine 1.9 H (0.7-1.2) mg/dl Est GFR ( Amer) 30 Est GFR (Non-Af Amer) 25 POC Glucose (mg/dL) 202 H (65-110) mg/dL Random Glucose 219 H (70-110) mg/dL Calcium 9.6 (8.4-10.5) mg/dL Phosphorus (2.5-4.5) mg/dL Magnesium 2.1 2.1 (1.7-2.2) mg/dL Total Bilirubin 0.5 (0.2-1.3) mg/dL AST 24 (14-36) U/L ALT 27 (7-56) U/L Alkaline Phosphatase 54 (38-126) U/L Lactate Dehydrogenase (333-699) U/L Total Creatine Kinase (35-230) U/L Troponin I ng/mL Total Protein 6.2 (5.8-8.3) g/dL Albumin 3.1 (3.0-4.8) g/dL Globulin 3.1 gm/dL Albumin/Globulin Ratio 1.0 L (1.1-1.8) 01/11/18 01/10/18 01/10/18 Range/Units 05:00 23:35 23:35 WBC 15.3 H 14.4 H (4.5-11.0) 10^3/ul RBC 4.39 4.20 (3.5-6.1) 10^6/uL Hgb 12.7 12.1 (12.0-16.0) g/dL Hct 39.4 38.0 (36.0-48.0) % MCV 89.7 90.5 (80.0-105.0) fl MCH 28.9 28.8 (25.0-35.0) pg MCHC 32.2 31.8 (31.0-37.0) g/dl RDW 17.4 H 18.0 H (11.5-14.5) % Plt Count 183 215 (120.0-450.0) 10^3/uL MPV 9.3 9.4 (7.0-11.0) fl Gran % 86.5 H 82.2 H (50.0-68.0) % Lymph % (Auto) 7.7 L 11.0 L (22.0-35.0) % Pepin % (Auto) 5.6 6.6 H (1.0-6.0) % Eos % (Auto) 0.1 L 0.1 L (1.5-5.0) % Baso % (Auto) 0.1 0.1 (0.0-3.0) % Gran # 13.24 H 11.87 H (1.4-6.5) Lymph # 1.2 1.6 (1.2-3.4) Pepin # 0.9 H 1.0 H (0.1-0.6) Eos # 0.0 0.0 (0.0-0.7) Baso # 0.01 0.01 (0.0-2.0) K/mm3 Sodium 144 (132-148) mmol/L Potassium 4.1 (3.6-5.0) mmol/L Chloride 113 H (98-107) mmol/L Carbon Dioxide 22 (21-33) mmol/L Anion Gap 13 (10-20) BUN 27 H (7-21) mg/dL Creatinine 2.2 H (0.7-1.2) mg/dl Est GFR ( Amer) 26 Est GFR (Non-Af Amer) 21 POC Glucose (mg/dL) (65-110) mg/dL Random Glucose 124 H (70-110) mg/dL Calcium 9.7 (8.4-10.5) mg/dL Phosphorus 3.8 (2.5-4.5) mg/dL Magnesium 1.5 L (1.7-2.2) mg/dL Total Bilirubin (0.2-1.3) mg/dL AST (14-36) U/L ALT (7-56) U/L Alkaline Phosphatase (38-126) U/L Lactate Dehydrogenase 394 (333-699) U/L Total Creatine Kinase 41 (35-230) U/L Troponin I 0.19 H* D ng/mL Total Protein (5.8-8.3) g/dL Albumin (3.0-4.8) g/dL Globulin gm/dL Albumin/Globulin Ratio (1.1-1.8) 06/14/17 06/14/17 06/14/17 Range/Units 21:31 16:14 13:19 WBC (4.5-11.0) 10^3/ul RBC (3.5-6.1) 10^6/uL Hgb (12.0-16.0) g/dL Hct (36.0-48.0) % MCV (80.0-105.0) fl MCH (25.0-35.0) pg MCHC (31.0-37.0) g/dl RDW (11.5-14.5) % Plt Count (120.0-450.0) 10^3/uL MPV (7.0-11.0) fl Gran % (50.0-68.0) % Lymph % (Auto) (22.0-35.0) % Pepin % (Auto) (1.0-6.0) % Eos % (Auto) (1.5-5.0) % Baso % (Auto) (0.0-3.0) % Gran # (1.4-6.5) Lymph # (1.2-3.4) Pepin # (0.1-0.6) Eos # (0.0-0.7) Baso # (0.0-2.0) K/mm3 Sodium (132-148) mmol/L Potassium (3.6-5.0) mmol/L Chloride (98-107) mmol/L Carbon Dioxide (21-33) mmol/L Anion Gap (10-20) BUN (7-21) mg/dL Creatinine (0.7-1.2) mg/dl Est GFR ( Amer) Est GFR (Non-Af Amer) POC Glucose (mg/dL) 147 H 128 H 107 (65-110) mg/dL Random Glucose (70-110) mg/dL Calcium (8.4-10.5) mg/dL Phosphorus (2.5-4.5) mg/dL Magnesium (1.7-2.2) mg/dL Total Bilirubin (0.2-1.3) mg/dL AST (14-36) U/L ALT (7-56) U/L Alkaline Phosphatase (38-126) U/L Lactate Dehydrogenase (333-699) U/L Total Creatine Kinase (35-230) U/L Troponin I ng/mL Total Protein (5.8-8.3) g/dL Albumin (3.0-4.8) g/dL Globulin gm/dL Albumin/Globulin Ratio (1.1-1.8) 06/14/17 Range/Units 11:20 WBC (4.5-11.0) 10^3/ul RBC (3.5-6.1) 10^6/uL Hgb (12.0-16.0) g/dL Hct (36.0-48.0) % MCV (80.0-105.0) fl MCH (25.0-35.0) pg MCHC (31.0-37.0) g/dl RDW (11.5-14.5) % Plt Count (120.0-450.0) 10^3/uL MPV (7.0-11.0) fl Gran % (50.0-68.0) % Lymph % (Auto) (22.0-35.0) % Pepin % (Auto) (1.0-6.0) % Eos % (Auto) (1.5-5.0) % Baso % (Auto) (0.0-3.0) % Gran # (1.4-6.5) Lymph # (1.2-3.4) Pepin # (0.1-0.6) Eos # (0.0-0.7) Baso # (0.0-2.0) K/mm3 Sodium 143 (132-148) mmol/L Potassium 4.6 (3.6-5.0) mmol/L Chloride 113 H (98-107) mmol/L Carbon Dioxide 19 L (21-33) mmol/L Anion Gap 16 (10-20) BUN 33 H (7-21) mg/dL Creatinine 2.3 H (0.7-1.2) mg/dl Est GFR ( Amer) 24 Est GFR (Non-Af Amer) 20 POC Glucose (mg/dL) (65-110) mg/dL Random Glucose 215 H (70-110) mg/dL Calcium 9.4 (8.4-10.5) mg/dL Phosphorus (2.5-4.5) mg/dL Magnesium (1.7-2.2) mg/dL Total Bilirubin (0.2-1.3) mg/dL AST (14-36) U/L ALT (7-56) U/L Alkaline Phosphatase (38-126) U/L Lactate Dehydrogenase (333-699) U/L Total Creatine Kinase (35-230) U/L Troponin I ng/mL Total Protein (5.8-8.3) g/dL Albumin (3.0-4.8) g/dL Globulin gm/dL Albumin/Globulin Ratio (1.1-1.8) Laboratory Results - last 24 hr 06/14/17 06/14/17 06/14/17 11:20 13:19 16:14 WBC RBC Hgb Hct MCV MCH MCHC RDW Plt Count MPV Gran % Lymph % (Auto) Pepin % (Auto) Eos % (Auto) Baso % (Auto) Gran # Lymph # Pepin # Eos # Baso # Sodium 143 Potassium 4.6 Chloride 113 H Carbon Dioxide 19 L Anion Gap 16 BUN 33 H Creatinine 2.3 H Est GFR ( Amer) 24 Est GFR (Non-Af Amer) 20 POC Glucose (mg/dL) 107 128 H Random Glucose 215 H Calcium 9.4 Phosphorus Magnesium Total Bilirubin AST ALT Alkaline Phosphatase Lactate Dehydrogenase Total Creatine Kinase Troponin I Total Protein Albumin Globulin Albumin/Globulin Ratio 06/14/17 06/14/17 06/14/17 21:31 23:35 23:35 WBC 14.4 H RBC 4.20 Hgb 12.1 Hct 38.0 MCV 90.5 MCH 28.8 MCHC 31.8 RDW 18.0 H Plt Count 215 MPV 9.4 Gran % 82.2 H Lymph % (Auto) 11.0 L Pepin % (Auto) 6.6 H Eos % (Auto) 0.1 L Baso % (Auto) 0.1 Gran # 11.87 H Lymph # 1.6 Pepin # 1.0 H Eos # 0.0 Baso # 0.01 Sodium 144 Potassium 4.1 Chloride 113 H Carbon Dioxide 22 Anion Gap 13 BUN 27 H Creatinine 2.2 H Est GFR ( Amer) 26 Est GFR (Non-Af Amer) 21 POC Glucose (mg/dL) 147 H Random Glucose 124 H Calcium 9.7 Phosphorus 3.8 Magnesium 1.5 L Total Bilirubin AST ALT Alkaline Phosphatase Lactate Dehydrogenase 394 Total Creatine Kinase 41 Troponin I 0.19 H* D Total Protein Albumin Globulin Albumin/Globulin Ratio 06/15/17 06/15/17 06/15/17 05:00 05:00 05:00 WBC 15.3 H RBC 4.39 Hgb 12.7 Hct 39.4 MCV 89.7 MCH 28.9 MCHC 32.2 RDW 17.4 H Plt Count 183 MPV 9.3 Gran % 86.5 H Lymph % (Auto) 7.7 L Pepin % (Auto) 5.6 Eos % (Auto) 0.1 L Baso % (Auto) 0.1 Gran # 13.24 H Lymph # 1.2 Pepin # 0.9 H Eos # 0.0 Baso # 0.01 Sodium 142 Potassium 4.1 Chloride 113 H Carbon Dioxide 21 Anion Gap 13 BUN 24 H Creatinine 1.9 H Est GFR ( Amer) 30 Est GFR (Non-Af Amer) 25 POC Glucose (mg/dL) Random Glucose 219 H Calcium 9.6 Phosphorus Magnesium 2.1 2.1 Total Bilirubin 0.5 AST 24 ALT 27 Alkaline Phosphatase 54 Lactate Dehydrogenase Total Creatine Kinase Troponin I Total Protein 6.2 Albumin 3.1 Globulin 3.1 Albumin/Globulin Ratio 1.0 L 06/15/17 07:46 WBC RBC Hgb Hct MCV MCH MCHC RDW Plt Count MPV Gran % Lymph % (Auto) Pepin % (Auto) Eos % (Auto) Baso % (Auto) Gran # Lymph # Pepin # Eos # Baso # Sodium Potassium Chloride Carbon Dioxide Anion Gap BUN Creatinine Est GFR ( Amer) Est GFR (Non-Af Amer) POC Glucose (mg/dL) 202 H Random Glucose Calcium Phosphorus Magnesium Total Bilirubin AST ALT Alkaline Phosphatase Lactate Dehydrogenase Total Creatine Kinase Troponin I Total Protein Albumin Globulin Albumin/Globulin Ratio EKG/Cardiology Studies: Cardiology / EKG Studies 06/14/17 11:47 EKG [ELECTROCARDIOGRAM] Stat Comment: Reason For Exam: pacemaker malfunction Does Patient Have a Pacemaker?: Yes 06/14/17 23:30 ELECTROCARDIOGRAM Stat Comment: Reason For Exam: arrhythmia Fingerstick Blood Sugar Results: 147 Critical Care Progress Note - Nutrition Nutrition: Nutrition Category Date Time Status NPO Diet [DIET] Diets 06/13/17 Breakfast Ordered Assessment/Plan - Assessment and Plan (Free Text) Assessment: 87F admitted for Hyperkalemia has currently resolved, SONAL, Enteritis currently on antibiotics, atrial fibrillation w/ pacemaker, pacemaker malfunction s/p interrogation. and dementia. Currently DNR/DNI. Bradycardia currently resolved. Cardiogeneic shock 2/2 malfunctioning pacemaker, currently well controlled. Off Pressors. Urine output has been adequate. Plan: Neuro: Pain control PRN Awake responds to verbal stimuli, answers questions, hisotry of dementia Cardio: Cardiogenic shock 2/2 pacemaker malfunction interrogate pacemaker; Bradycardia resolved. Discontinue pressor. plan to transfer to [facility] for lead and battery replacement on pacemaker monitor vitals Pulm: keep SaO2 above 92% GI: NPO except ice chips. will remain NPO for procedure at [facility] Flagyl per GI c/s GI- Dr. Escobar; recs appreciated Renal/Electrolyte: Potassium normalized replete K and lytes PRN Cabezas in place w/ good urine output Endo: Keep pt euglycemic Heme: DVT ppx Eloquis held for procedure Patient stable to transfer to [facility]. Bed pending. Currently DNR/DNI Case discussed with Dr. Dumont critical care attending Robson Jameson PGY1 <Mike Dumont - Last Filed: 06/15/17 17:07> CCU Objective - Vital Signs / Intake & Output Intake and Output (Last 8hrs): Intake & Output 06/15/17 06/15/17 06/15/17 06:59 14:59 22:59 Weight 152 lb - Medications Active Medications: Active Medications Generic Name Dose Route Start Last Admin Trade Name Freq PRN Reason Stop Dose Admin Apixaban 2.5 mg 06/14/17 10:00 06/14/17 18:12 Eliquis PO 2.5 mg BID BHAVIK Administration Protocol Aspirin 81 mg 06/14/17 10:00 06/15/17 11:20 Aspirin Chewable PO 81 mg DAILY BHAVIK Administration Atorvastatin Calcium 20 mg 06/14/17 17:00 06/14/17 18:12 Lipitor PO 20 mg DIN BHAVIK Administration Donepezil HCl 5 mg 06/14/17 22:00 06/14/17 21:32 Aricept PO 5 mg HS BHAVIK Administration Ceftriaxone Sodium 500 mg/ 50 mls @ 100 mls/hr 06/14/17 01:15 06/15/17 10:00 Sodium Chloride IVPB 100 mls/hr Q24H BHAVIK Administration Protocol Metronidazole 500 mg in 100 mls @ 100 mls/hr 06/14/17 22:00 06/15/17 14:51 Flagyl IVPB 100 mls/hr Q8 BHAVIK Administration Protocol Ondansetron HCl 4 mg 06/13/17 22:56 Zofran Inj IVP Q6H PRN Nausea/Vomiting Pantoprazole Sodium 40 mg 06/15/17 10:00 06/15/17 11:20 Protonix Inj IVP 40 mg DAILY BHAVIK Administration Risperidone 0.25 mg 06/13/17 23:42 06/14/17 21:34 Risperdal Tab PO 0.25 mg Q4 PRN Administration Agitation Protocol Sodium Polystyrene Sulfonate 30 gm 06/13/17 23:00 06/14/17 05:18 Kayexalate Susp PO Not Given Q2H BHAVIK - Patient Studies Lab Studies: Lab Studies 06/15/17 06/15/17 06/15/17 Range/Units 11:20 07:46 05:00 WBC (4.5-11.0) 10^3/ul RBC (3.5-6.1) 10^6/uL Hgb (12.0-16.0) g/dL Hct (36.0-48.0) % MCV (80.0-105.0) fl MCH (25.0-35.0) pg MCHC (31.0-37.0) g/dl RDW (11.5-14.5) % Plt Count (120.0-450.0) 10^3/uL MPV (7.0-11.0) fl Gran % (50.0-68.0) % Lymph % (Auto) (22.0-35.0) % Pepin % (Auto) (1.0-6.0) % Eos % (Auto) (1.5-5.0) % Baso % (Auto) (0.0-3.0) % Gran # (1.4-6.5) Lymph # (1.2-3.4) Pepin # (0.1-0.6) Eos # (0.0-0.7) Baso # (0.0-2.0) K/mm3 Sodium (132-148) mmol/L Potassium (3.6-5.0) mmol/L Chloride (98-107) mmol/L Carbon Dioxide (21-33) mmol/L Anion Gap (10-20) BUN (7-21) mg/dL Creatinine (0.7-1.2) mg/dl Est GFR ( Amer) Est GFR (Non-Af Amer) POC Glucose (mg/dL) 239 H 202 H (65-110) mg/dL Random Glucose (70-110) mg/dL Calcium (8.4-10.5) mg/dL Phosphorus (2.5-4.5) mg/dL Magnesium 2.1 (1.7-2.2) mg/dL Total Bilirubin (0.2-1.3) mg/dL AST (14-36) U/L ALT (7-56) U/L Alkaline Phosphatase (38-126) U/L Lactate Dehydrogenase (333-699) U/L Total Creatine Kinase (35-230) U/L Troponin I ng/mL Total Protein (5.8-8.3) g/dL Albumin (3.0-4.8) g/dL Globulin gm/dL Albumin/Globulin Ratio (1.1-1.8) 06/15/17 06/15/17 06/14/17 Range/Units 05:00 05:00 23:35 WBC 15.3 H 14.4 H (4.5-11.0) 10^3/ul RBC 4.39 4.20 (3.5-6.1) 10^6/uL Hgb 12.7 12.1 (12.0-16.0) g/dL Hct 39.4 38.0 (36.0-48.0) % MCV 89.7 90.5 (80.0-105.0) fl MCH 28.9 28.8 (25.0-35.0) pg MCHC 32.2 31.8 (31.0-37.0) g/dl RDW 17.4 H 18.0 H (11.5-14.5) % Plt Count 183 215 (120.0-450.0) 10^3/uL MPV 9.3 9.4 (7.0-11.0) fl Gran % 86.5 H 82.2 H (50.0-68.0) % Lymph % (Auto) 7.7 L 11.0 L (22.0-35.0) % Pepin % (Auto) 5.6 6.6 H (1.0-6.0) % Eos % (Auto) 0.1 L 0.1 L (1.5-5.0) % Baso % (Auto) 0.1 0.1 (0.0-3.0) % Gran # 13.24 H 11.87 H (1.4-6.5) Lymph # 1.2 1.6 (1.2-3.4) Pepin # 0.9 H 1.0 H (0.1-0.6) Eos # 0.0 0.0 (0.0-0.7) Baso # 0.01 0.01 (0.0-2.0) K/mm3 Sodium 142 (132-148) mmol/L Potassium 4.1 (3.6-5.0) mmol/L Chloride 113 H (98-107) mmol/L Carbon Dioxide 21 (21-33) mmol/L Anion Gap 13 (10-20) BUN 24 H (7-21) mg/dL Creatinine 1.9 H (0.7-1.2) mg/dl Est GFR ( Amer) 30 Est GFR (Non-Af Amer) 25 POC Glucose (mg/dL) (65-110) mg/dL Random Glucose 219 H (70-110) mg/dL Calcium 9.6 (8.4-10.5) mg/dL Phosphorus (2.5-4.5) mg/dL Magnesium 2.1 (1.7-2.2) mg/dL Total Bilirubin 0.5 (0.2-1.3) mg/dL AST 24 (14-36) U/L ALT 27 (7-56) U/L Alkaline Phosphatase 54 (38-126) U/L Lactate Dehydrogenase (333-699) U/L Total Creatine Kinase (35-230) U/L Troponin I ng/mL Total Protein 6.2 (5.8-8.3) g/dL Albumin 3.1 (3.0-4.8) g/dL Globulin 3.1 gm/dL Albumin/Globulin Ratio 1.0 L (1.1-1.8) 06/14/17 06/14/17 Range/Units 23:35 21:31 WBC (4.5-11.0) 10^3/ul RBC (3.5-6.1) 10^6/uL Hgb (12.0-16.0) g/dL Hct (36.0-48.0) % MCV (80.0-105.0) fl MCH (25.0-35.0) pg MCHC (31.0-37.0) g/dl RDW (11.5-14.5) % Plt Count (120.0-450.0) 10^3/uL MPV (7.0-11.0) fl Gran % (50.0-68.0) % Lymph % (Auto) (22.0-35.0) % Pepin % (Auto) (1.0-6.0) % Eos % (Auto) (1.5-5.0) % Baso % (Auto) (0.0-3.0) % Gran # (1.4-6.5) Lymph # (1.2-3.4) Pepin # (0.1-0.6) Eos # (0.0-0.7) Baso # (0.0-2.0) K/mm3 Sodium 144 (132-148) mmol/L Potassium 4.1 (3.6-5.0) mmol/L Chloride 113 H (98-107) mmol/L Carbon Dioxide 22 (21-33) mmol/L Anion Gap 13 (10-20) BUN 27 H (7-21) mg/dL Creatinine 2.2 H (0.7-1.2) mg/dl Est GFR ( Amer) 26 Est GFR (Non-Af Amer) 21 POC Glucose (mg/dL) 147 H (65-110) mg/dL Random Glucose 124 H (70-110) mg/dL Calcium 9.7 (8.4-10.5) mg/dL Phosphorus 3.8 (2.5-4.5) mg/dL Magnesium 1.5 L (1.7-2.2) mg/dL Total Bilirubin (0.2-1.3) mg/dL AST (14-36) U/L ALT (7-56) U/L Alkaline Phosphatase (38-126) U/L Lactate Dehydrogenase 394 (333-699) U/L Total Creatine Kinase 41 (35-230) U/L Troponin I 0.19 H* D ng/mL Total Protein (5.8-8.3) g/dL Albumin (3.0-4.8) g/dL Globulin gm/dL Albumin/Globulin Ratio (1.1-1.8) Laboratory Results - last 24 hr 06/14/17 06/14/17 06/14/17 21:31 23:35 23:35 WBC 14.4 H RBC 4.20 Hgb 12.1 Hct 38.0 MCV 90.5 MCH 28.8 MCHC 31.8 RDW 18.0 H Plt Count 215 MPV 9.4 Gran % 82.2 H Lymph % (Auto) 11.0 L Pepin % (Auto) 6.6 H Eos % (Auto) 0.1 L Baso % (Auto) 0.1 Gran # 11.87 H Lymph # 1.6 Pepin # 1.0 H Eos # 0.0 Baso # 0.01 Sodium 144 Potassium 4.1 Chloride 113 H Carbon Dioxide 22 Anion Gap 13 BUN 27 H Creatinine 2.2 H Est GFR ( Amer) 26 Est GFR (Non-Af Amer) 21 POC Glucose (mg/dL) 147 H Random Glucose 124 H Calcium 9.7 Phosphorus 3.8 Magnesium 1.5 L Total Bilirubin AST ALT Alkaline Phosphatase Lactate Dehydrogenase 394 Total Creatine Kinase 41 Troponin I 0.19 H* D Total Protein Albumin Globulin Albumin/Globulin Ratio 06/15/17 06/15/17 06/15/17 05:00 05:00 05:00 WBC 15.3 H RBC 4.39 Hgb 12.7 Hct 39.4 MCV 89.7 MCH 28.9 MCHC 32.2 RDW 17.4 H Plt Count 183 MPV 9.3 Gran % 86.5 H Lymph % (Auto) 7.7 L Pepin % (Auto) 5.6 Eos % (Auto) 0.1 L Baso % (Auto) 0.1 Gran # 13.24 H Lymph # 1.2 Pepin # 0.9 H Eos # 0.0 Baso # 0.01 Sodium 142 Potassium 4.1 Chloride 113 H Carbon Dioxide 21 Anion Gap 13 BUN 24 H Creatinine 1.9 H Est GFR ( Amer) 30 Est GFR (Non-Af Amer) 25 POC Glucose (mg/dL) Random Glucose 219 H Calcium 9.6 Phosphorus Magnesium 2.1 2.1 Total Bilirubin 0.5 AST 24 ALT 27 Alkaline Phosphatase 54 Lactate Dehydrogenase Total Creatine Kinase Troponin I Total Protein 6.2 Albumin 3.1 Globulin 3.1 Albumin/Globulin Ratio 1.0 L 06/15/17 06/15/17 07:46 11:20 WBC RBC Hgb Hct MCV MCH MCHC RDW Plt Count MPV Gran % Lymph % (Auto) Pepin % (Auto) Eos % (Auto) Baso % (Auto) Gran # Lymph # Pepin # Eos # Baso # Sodium Potassium Chloride Carbon Dioxide Anion Gap BUN Creatinine Est GFR ( Amer) Est GFR (Non-Af Amer) POC Glucose (mg/dL) 202 H 239 H Random Glucose Calcium Phosphorus Magnesium Total Bilirubin AST ALT Alkaline Phosphatase Lactate Dehydrogenase Total Creatine Kinase Troponin I Total Protein Albumin Globulin Albumin/Globulin Ratio EKG/Cardiology Studies: Cardiology / EKG Studies 06/14/17 23:30 ELECTROCARDIOGRAM Stat Comment: Reason For Exam: arrhythmia Critical Care Progress Note - Nutrition Nutrition: Nutrition Category Date Time Status NPO Diet [DIET] Diets 06/13/17 Breakfast Ordered Attending/Attestation - Attestation I have personally seen and examined this patient.: Yes I have fully participated in the care of the patient.: Yes I have reviewed all pertinent clinical information: Yes Notes (Text): 06/15/17 17:05 87 yo with CHF, presented with cardiogenic shock due to PM/AICD malfunction with resulting symptomatic bradycardia. Dopamine was started, PM interogated and adjusted, patient hemodyanmically improved. ccm time 40 min
--- NOTE | 2017-06-15 16:38 | CP.PCM.PN ---
Subjective - Date & Time of Evaluation Date of Evaluation: 06/15/17 Time of Evaluation: 09:50 - Subjective Subjective: Seen and examined at the bedside earlier today, chart reviewed. Patient remains bradycardic on dopamine, currently nothing by mouth possible pacemaker/ transferred to [facility]. Patient reported to have BM last night, no reports of diarrhea or overt GI bleed. Patient denies nausea, vomiting does report right-sided abdominal pain, no acute distress. Objective - Vital Signs/Intake and Output Vital Signs (last 24 hours): Temp Pulse Resp BP Pulse Ox 98 F 81 53 H 116/76 94 L 06/15/17 05:00 06/15/17 05:39 06/15/17 05:30 06/15/17 05:01 06/15/17 05:30 - Medications Medications: Current Medications Apixaban (Eliquis) 2.5 mg PO BID [facility] PRN Reason: Protocol Last Admin: 06/14/17 18:12 Dose: 2.5 mg Aspirin (Aspirin Chewable) 81 mg PO DAILY [facility] Last Admin: 06/15/17 11:20 Dose: 81 mg Atorvastatin Calcium (Lipitor) 20 mg PO DIN [facility] Last Admin: 06/14/17 18:12 Dose: 20 mg Donepezil HCl (Aricept) 5 mg PO HS [facility] Last Admin: 06/14/17 21:32 Dose: 5 mg Ceftriaxone Sodium 500 mg/ (Sodium Chloride) 50 mls @ 100 mls/hr IVPB Q24H [facility] PRN Reason: Protocol Last Admin: 06/15/17 10:00 Dose: 100 mls/hr Metronidazole (Flagyl) 500 mg in 100 mls @ 100 mls/hr IVPB Q8 [facility] PRN Reason: Protocol Last Admin: 06/15/17 14:51 Dose: 100 mls/hr Ondansetron HCl (Zofran Inj) 4 mg IVP Q6H PRN PRN Reason: Nausea/Vomiting Pantoprazole Sodium (Protonix Inj) 40 mg IVP DAILY [facility] Last Admin: 06/15/17 11:20 Dose: 40 mg Risperidone (Risperdal Tab) 0.25 mg PO Q4 PRN; Protocol PRN Reason: Agitation Last Admin: 06/14/17 21:34 Dose: 0.25 mg Sodium Polystyrene Sulfonate (Kayexalate Susp) 30 gm PO Q2H [facility] Last Admin: 06/14/17 05:18 Dose: Not Given - Labs Labs: 06/15/17 05:00 06/15/17 05:00 PT 21.3 SECONDS (9.4-12.5) H 06/13/17 19:48 INR 1.85 (0.93-1.08) H 06/13/17 19:48 APTT 32.1 Seconds (25.1-36.5) 06/13/17 19:48 - Constitutional Appears: No Acute Distress - Eye Exam Eye Exam: Normal appearance. absent: Scleral icterus - ENT Exam ENT Exam: Mucous Membranes Moist - Respiratory Exam Respiratory Exam: NORMAL BREATHING PATTERN. absent: Respiratory Distress - Cardiovascular Exam Cardiovascular Exam: +S1, +S2 - GI/Abdominal Exam GI & Abdominal Exam: Soft, Tenderness, Normal Bowel Sounds. absent: Guarding, Organomegaly, Rebound Additional comments: right side of abdomen, no rebound or guarding - Extremities Exam Extremities Exam: absent: Calf Tenderness - Neurological Exam Neurological Exam: Altered (history of dementia), Awake - Skin Skin Exam: Dry, Warm Assessment and Plan - Assessment and Plan (Free Text) Assessment: Assessment: Leukocytosis Enteritis Bradycardia/malfunctioning pacemaker Dementia History of atrial fibrillation History of coronary artery disease status post CABG Plan: Nothing by mouth, continue IV F, possible plan for pacemaker change, if no procedures plan today,consider clear liquid diet On IV antibiotics, on Flagyl Continue PPI DVT prophylaxis On Eliquis Monitor electrolytes As per ICU team Plan for pacemaker change, awaiting transfer to [facility] Seen and discussed w/ Dr. Escobar.
--- NOTE | 2017-06-15 17:59 | CARD ---
APPROVED REPORT EKG Measurement Heart [id number] <Conclusion> Electronic ventricular pacemaker
[2017-06-15 18:03] VITALS: BP 119/50; PULSE 58; TEMP 98.4
== END 2017-06-15 16:50 | disposition short-term general hospital (02) | DRG 640 ==
LOC: ED 18:14 → ERH 22:18 → CCU 06-14 01:23
PROVIDERS: ADMIT Internal Medicine Nephrology; ATTEND Internal Medicine Nephrology
PROC: 4B02XSZ Measurement of Cardiac Pacemaker, External Approach (ICD-10-PCS; principal; 2017-06-15)
DX: E87.5 Hyperkalemia (principal); R57.0 Cardiogenic shock; T82.198A Other mechanical complication of other cardiac electronic device, initial encounter; N17.9 Acute kidney failure, unspecified; I13.0 Hypertensive heart and chronic kidney disease with heart failure and stage 1 through stage 4 chronic kidney disease, or unspecified chronic kidney disease; I50.9 Heart failure, unspecified; N30.00 Acute cystitis without hematuria; G30.9 Alzheimer's disease, unspecified; F02.80 Dementia in other diseases classified elsewhere, unspecified severity, without behavioral disturbance, psychotic disturbance, mood disturbance, and anxiety; I48.0 Paroxysmal atrial fibrillation; I25.10 Atherosclerotic heart disease of native coronary artery without angina pectoris; N20.0 Calculus of kidney; K59.09 Other constipation; K57.30 Diverticulosis of large intestine without perforation or abscess without bleeding; K52.9 Noninfective gastroenteritis and colitis, unspecified; I48.2 Chronic atrial fibrillation; J44.9 Chronic obstructive pulmonary disease, unspecified; Z66 Do not resuscitate; R00.1 Bradycardia, unspecified; N18.9 Chronic kidney disease, unspecified; E11.9 Type 2 diabetes mellitus without complications; Z79.01 Long term (current) use of anticoagulants; Y83.1 Surgical operation with implant of artificial internal device as the cause of abnormal reaction of the patient, or of later complication, without mention of misadventure at the time of the procedure; Z85.3 Personal history of malignant neoplasm of breast; Z86.73 Personal history of transient ischemic attack (TIA), and cerebral infarction without residual deficits; Z92.3 Personal history of irradiation; Z95.1 Presence of aortocoronary bypass graft; Z95.5 Presence of coronary angioplasty implant and graft; Z87.891 Personal history of nicotine dependence